=== PATIENT | male | born 1935 | race Caucasian/White ===

== ENCOUNTER 2016-05-26 01:30 | Inpatient (IN) | payer BC, OTHER ==
--- NOTE | 2016-05-26 01:38 | PDOC ---
History of Present Illness - General Chief Complaint: Respiratory Stated Complaint: SOB Time Seen by Provider: 05/26/16 01:36 History Source: Patient Exam Limitations: No Limitations - History of Present Illness Initial Comments: 05/26/16 01:36 This is a 80-year-old male who comes in complaining of shortness of breath. Patient sedated he has had shortness of breath 1 day. Patient has history significant for hypertension, high cholesterol, diabetes, patient said that it' s difficult for him to breathe secondary to congestion of his upper respiratory system. Patient complaining of cough. Patient denies any fevers or chills, nausea, vomiting, diarrhea. Patient denies any chest pain. PAST MEDICAL HISTORY: no significant history PAST SURGICAL HISTORY: no significant history FAMILY HISTORY: no pertinant history SOCIAL HISTORY: Pt lives with family and is employed. MEDICATIONS: reviewed ALLERGIES: As per nursing notes Review of Systems General: No fevers or chills, no weakness, no weight loss HEENT: No change in vision. No sore throat,. No ear pain CardioVascular: No chest pain or plus shortness of breath Respiratory:No cough, or wheezing. Gastrointestinal: no nausea, vomitting, diarrhea or constipation, No rectal bleeding Genitourinary: No dysuria, hematuria, or frequency Musculoskeletal: No joint or muscle pain or swelling Neurologic: No headache, vertigo, dizziness or loss of consciousness Psychiatric: nor depression Skin: No rashes or easy bruising Endocrine: no increased thirst or abnormal weight change Allergic: no skin or latex allergy All other systems reviewed and normal Exam: General: Well-nourished well-developed individual, no acute distress HEENT: Throat: Normal, tonsils normal, no erythema or exudate Neck: Supple, no meningeal signs, no lymphadenopathy Eyes::Pupils equal reactive and round, extraocular motion intact Chest: Nontender to palpation Cardiac: S1-S2 normal, regular rate and rhythm, no murmurs rubs or gallops Respiratory: Lungs clear to auscultation bilateral Abdomen: Soft, nondistended, normal bowel sounds, nontender to palpation diffusely Extremities: Warm, dry, no cyanosis, clubbing, or edema Skin: No rashes Neuro: Alert and oriented x3, nonfocal exam, grossly intact, normal gait Psych: Normal mood and affect 05/26/16 03:04 EKG shows normal sinus rhythm at a rate of 79, no acute ST-T wave changes Chest x-ray shows 05/26/16 03:04 Assessment and plan: This is a 80-year-old male who comes in complaining of shortness of breath. Patient's chest x-ray shows pulmonary vascular congestion and questionable multiple nodules. Probable pleural effusion. Patient given 40 mg of Lasix and will be admitted to an inpatient bed under the hospitalist service. Past History - Past Medical History Allergies/Adverse Reactions: Allergies Allergy/AdvReac Type Severity Reaction Status Date / Time No Known Drug Allergies Allergy Verified 05/26/16 01:32 Home Medications: Ambulatory Orders Hydralazine HCl 100 mg PO BID 11/19/13 Insulin (Levemir) [Levemir Flexpen -] 80 units SQ HS 11/19/13 Nifedipine [Nifedical Xl] 60 mg PO DAILY 11/19/13 Telmisartan [Micardis] 80 mg PO DAILY 11/19/13 Insulin Regular, Human [Humulin R -] 0 - 20 units SQ TID PRN 09/18/14 Glimepiride 4 mg PO BID 05/16/15 Glipizide/Metformin HCl [Glipizide-Metformin 2.5-250 mg] 1 each PO DAILY Labetalol HCl 300 mg PO BID 02/07/16 Levothyroxine [Synthroid -] 50 mcg PO DAILY 02/07/16 Terazosin HCl 2 mg PO BID 02/07/16 Multivitamins [Multivit ([facility] Formulary)] 1 tab PO DAILY #0 tab 02/15/16 Aspirin [ASA -] 81 mg PO DAILY 05/26/16 Anemia: No Asthma: No Cancer: No Cardiac Disorders: No CVA: No COPD: No CHF: No Dementia: No Diabetes: Yes (OVER 1O YRS) GI Disorders: No Disorders: Yes (BPH) HTN: Yes Hypercholesterolemia: Yes Liver Disease: No Seizures: No Thyroid Disease: Yes (HYPOTHYROIDISM) - Surgical History Abdominal Surgery: No Appendectomy: No Cardiac Surgery: No Cholecystectomy: No Lung Surgery: No Neurologic Surgery: No Orthopedic Surgery: Yes (BILATERAL TKR 8 AND 10 YEARS AGO) - Psycho/Social/Smoking Cessation Hx Anxiety: No Suicidal Ideation: No Smoking History: Never smoked Have you smoked in the past 12 months: No Hx Alcohol Use: Yes (OCCASIONALLY) Drug/Substance Use Hx: No Substance Use Type: Alcohol Hx Substance Use Treatment: No ED Treatment Course - LABORATORY CBC & Chemistry Diagram: 05/26/16 01:50 05/26/16 01:50 *DC/Admit/Observation/Transfer Diagnosis at time of Disposition: Congestive heart failure Qualifiers: Congestive heart failure type: unspecified congestive heart failure type Congestive heart failure chronicity: acute Qualified Code(s): I50.9 - Heart failure, unspecified - Discharge Dispostion Condition at time of disposition: Stable Admit: Yes
[2016-05-26 01:51] VITALS: BMI 31.7
[2016-05-26 02:09] LABS: BASOPHIL 0.5 % (0-2.0); EOSINOPHIL 4.3 % (0-4.5); MCH 27.6 pg (25.7-33.7); MCHC 33.1 g/dl (32.0-35.9); MEAN CELL VOLUME 83.3 fl (80-96); MEAN PLT VOLUME 9.1 fl (7.5-11.1); NEUTROPHILS 75.2 % (42.8-82.8); PLATELET COUNT 161 K/MM3 (134-434); RDW 16.7 % (11.9-15.9); WHITE BLOOD COUNT 7.6 K/mm3 (4.0-10.0)
[2016-05-26 02:11] LABS: URINE APPEARANCE CLEAR; URINE BILIRUBIN NEGATIVE (NEGATIVE); URINE BLOOD NEGATIVE (NEGATIVE); URINE COLOR LTYELLOW; URINE GLUCOSE (UA) NEGATIVE (NEGATIVE); URINE KETONE NEGATIVE (NEGATIVE); URINE LEUK ESTERASE NEGATIVE (NEGATIVE); URINE NITRITE NEGATIVE (NEGATIVE); URINE PROTEIN 3+ (NEGATIVE); URINE UROBILINOGEN NEGATIVE E.U./dl (0.2-1.0)
[2016-05-26 02:13] LABS: GRANULAR CASTS 2 /lpf; URINE MUCUS RARE; URINE RBC <1 /hpf (0-3); URINE WBC 1 /hpf (3-5)
[2016-05-26] MEDS ORDERED: FUROSEMIDE 40 MG/4 ML INJECTABLE VIAL ONE (02:23)
[2016-05-26] MEDS ORDERED: FUROSEMIDE 40 MG/4 ML INJECTABLE VIAL IVPUSH ONE (02:27)
[2016-05-26 02:37] LABS: ALBUMIN 3.9 g/dl (3.4-5.0); BILIRUBIN,TOTAL 0.5 mg/dL (0.2-1.0); CALCIUM 8.2 mg/dL (8.5-10.1); CREATININE 1.8 mg/dL (0.7-1.3); TOT PROT 6.9 g/dl (6.4-8.2)
[2016-05-26 02:51] LABS: TROPONIN I 0.03 ng/ml (0.00-0.05)
[2016-05-26] MEDS ORDERED: HEMOQUE TEST 1 EACH EACH ONE ×2 (03:12→03:32)
[2016-05-26] MEDS: INSULIN SLIDING SCALE (NOVOLOG) 1 VIAL SQ SCH ×4 (03:21→17:31)
[2016-05-26] MEDS: VALSARTAN 160 MG TABLET (UD) PO SCH ×2 (04:22→10:04)
[2016-05-26] MEDS: LEVOTHYROXINE NA 50 MCG TABLET (FP) PO SCH (06:26)
--- NOTE | 2016-05-26 07:36 | HP ---
CHIEF COMPLAINT: shortness of breath PCP: Dr Martinez HISTORY OF PRESENT ILLNESS: patient is a 80 y/o male with a past medical history of CRISTINA (no BIPAP), HTN, BPH, NIDDM, and diastolic congestive heart failure. Patient reports one day of shortness of breath and dyspnea upon exertion. He denies any chest pain or dizziness. Patient does reports an increase of swelling to bilateral lower extremities. ER course was notable for: (1) EKG, NSR, left axis deviation unchanged from prior EKG 11/10 (2)BNP 2795 (3)chest xray, billateral parenchymal disease left>right Recent Travel: none PAST MEDICAL HISTORY: see HPI PAST SURGICAL HISTORY: right hip replacement, bilateral inginual repair laparatomy Social History: retired resides at home with Smoking: denies Alcohol: social Drugs: none Family History: non-contributory Allergies No Known Drug Allergies Allergy (Verified 05/26/16 01:32) HOME MEDICATIONS: Home Medications Medication Instructions Recorded Hydralazine HCl 100 mg PO BID 11/19/13 Insulin (Levemir) [Levemir Flexpen 80 units SQ HS 11/19/13 -] Nifedipine [Nifedical Xl] 60 mg PO DAILY 11/19/13 Telmisartan [Micardis] 80 mg PO DAILY 11/19/13 Insulin Regular, Human [Humulin R 0 - 20 units SQ TID PRN 09/18/14 -] Glimepiride 4 mg PO BID 05/16/15 Glipizide/Metformin HCl 1 each PO DAILY 05/16/15 [Glipizide-Metformin 2.5-250 mg] Labetalol HCl 300 mg PO BID 02/07/16 Levothyroxine [Synthroid -] 50 mcg PO DAILY 02/07/16 Terazosin HCl 2 mg PO BID 02/07/16 Multivitamins [Multivit ([facility] 1 tab PO DAILY #0 tab 02/15/16 Formulary)] Aspirin [ASA -] 81 mg PO DAILY 05/26/16 REVIEW OF SYSTEMS CONSTITUTIONAL: Absent: fever, chills, diaphoresis, generalized weakness, malaise, loss of appetite, weight change HEENT: Absent: rhinorrhea, nasal congestion, throat pain, throat swelling, difficulty swallowing, mouth swelling, ear pain, eye pain, visual changes CARDIOVASCULAR: Absent: chest pain, syncope, palpitations, irregular heart rate, lightheadedness , peripheral edema RESPIRATORY: Present: shortness of breath, dyspnea upon exertion Absent: cough,, orthopnea, wheezing, stridor, hemoptysis GASTROINTESTINAL: Absent: abdominal pain, abdominal distension, nausea, vomiting, diarrhea, constipation, melena, hematochezia GENITOURINARY: Absent: dysuria, frequency, urgency, hesitancy, hematuria, flank pain, genital pain MUSCULOSKELETAL: Absent: myalgia, arthralgia, joint swelling, back pain, neck pain SKIN: Absent: rash, itching, pallor HEMATOLOGIC/IMMUNOLOGIC: Absent: easy bleeding, easy bruising, lymphadenopathy, frequent infections ENDOCRINE: Absent: unexplained weight gain, unexplained weight loss, heat intolerance, cold intolerance NEUROLOGIC: Absent: headache, focal weakness or paresthesias, dizziness, unsteady gait, seizure, mental status changes, bladder or bowel incontinence PSYCHIATRIC: Absent: anxiety, depression, suicidal or homicidal ideation, hallucinations. PHYSICAL EXAMINATION Vital Signs - 24 hr 05/26/16 05/26/16 04:44 06:25 Temperature 97.5 F L 98.0 F Pulse Rate 72 62 Respiratory 16 18 Rate Blood Pressure 182/71 189/72 O2 Sat by Pulse 96 Oximetry (%) GENERAL: Awake, alert, and fully oriented, in no acute distress. HEAD: Normal with no signs of trauma. EYES: Pupils equal, round and reactive to light, extraocular movements intact, sclera anicteric, conjunctiva clear. No lid lag. EARS, NOSE, THROAT: Ears normal, nares patent, oropharynx clear without exudates. Moist mucous membranes. NECK: Normal range of motion, supple without lymphadenopathy, JVD, or masses. LUNGS: Breath sounds equal, clear to apexes bilateraly, inspiratory wheeze noted to lower lobes, and no crackles. No accessory muscle use. HEART: Regular rate and rhythm, normal S1 and S2 without murmur, rub or gallop. ABDOMEN: Soft, nontender, not distended, normoactive bowel sounds, no guarding, no rebound, no masses. No hepatomegaly or splenomegaly. MUSCULOSKELETAL: Normal range of motion at all joints. No bony deformities or tenderness. No CVA tenderness. UPPER EXTREMITIES: 2+ pulses, warm, well-perfused. No cyanosis. No clubbing. Cap refill <2 seconds. No peripheral edema. LOWER EXTREMITIES: 2+ pulses, warm, well-perfused. No calf tenderness. +2 pitting edema noted bilaterally NEUROLOGICAL: Cranial nerves II-XII intact. Normal speech. Normal gait. PSYCHIATRIC: Cooperative. Good eye contact. Appropriate mood and affect. SKIN: Warm, dry, normal turgor, no rashes or lesions noted. Laboratory Results - last 24 hr 05/26/16 06:05 POC Glucometer 140 CBC WBC 7.5 K/mm3 (4.0-10.0) 05/26/16 07:45 RBC 3.75 M/mm3 (4.00-5.60) L 05/26/16 07:45 Hgb 10.3 GM/dl (11.7-16.9) L 05/26/16 07:45 Hct 31.2 % (35.4-49) L 05/26/16 07:45 MCV 83.2 fl (80-96) 05/26/16 07:45 MCHC 32.9 g/dl (32.0-35.9) 05/26/16 07:45 RDW 15.9 % (11.9-15.9) D 05/26/16 07:45 Plt Count 156 K/MM3 (134-434) 05/26/16 07:45 MPV 9.0 fl (7.5-11.1) 05/26/16 07:45 Neutrophils % 75.0 % (42.8-82.8) D 05/26/16 07:45 Lymphocytes % 14.3 % (8-40) D 05/26/16 07:45 Monocytes % 5.8 % (3.8-10.2) 05/26/16 07:45 Eosinophils % 4.5 % (0-4.5) 05/26/16 07:45 Basophils % 0.4 % (0-2.0) 05/26/16 07:45 CMP Sodium 141 mmol/L (136-145) 05/26/16 07:45 Potassium 3.8 mmol/L (3.5-5.1) 05/26/16 07:45 Chloride 107 mmol/L (98-107) 05/26/16 07:45 Carbon Dioxide 26 mmol/L (22-28) 05/26/16 07:45 Anion Gap 8 (8-16) 05/26/16 07:45 BUN 31 mg/dl (7-18) H 05/26/16 07:45 Creatinine 1.8 mg/dl (0.6-1.3) H D 05/26/16 07:45 Creat Clearance w eGFR 36.58 (>60) 05/26/16 07:45 POC Glucometer 140 UNITS (()) 05/26/16 06:05 Random Glucose 115 mg/dl (74-106) H D 05/26/16 07:45 Calcium 8.4 mg/dl (8.4-10.2) 05/26/16 07:45 Phosphorus 3.7 mg/dl (2.5-4.6) 05/26/16 07:45 Magnesium 2.1 mg/dL (1.8-2.4) 05/26/16 07:45 Total Bilirubin 0.2 mg/dl (0.2-1.0) 05/26/16 07:45 AST 21 U/L (10-42) D 05/26/16 07:45 ALT 25 U/L (10-40) D 05/26/16 07:45 Alkaline Phosphatase 50 U/L (32-92) 05/26/16 07:45 Creatine Kinase Cancelled 05/26/16 01:50 Creatine Kinase Index 1.3 % (0.0-5.0) 05/26/16 01:39 CK-MB (CK-2) 7.395 ng/ml (0.5-3.6) H 05/26/16 01:39 CK-MB (CK-2) Rel Index Cancelled 05/26/16 01:39 Troponin I 0.03 ng/ml (0.00-0.05) 05/26/16 07:25 B-Natriuretic Peptide 2795.13 pg/ml (5-450) H 05/26/16 01:50 Total Protein 5.6 g/dl (6.4-8.3) L 05/26/16 07:45 Albumin 3.7 g/dl (3.5-5.0) 05/26/16 07:45 ASSESSMENT/PLAN: 1) card acute on chronic diastolic congestive heart failure - elevated BNP 2795, unknown baseline, edema and wheezing noted on exam, lasix 40mg IVP ordered - pt's personal ophthalmic tech, Dr Pastrana contacted, copy of last echo received, EF 60-65%,mild TR, mild pulmonary hypertension - strict i/o and daily weight, continous cardiac monitoring - case discussed with Dr Pastrana, pt will be evaluated by cardiology today hypertension - continue hydralzine, labetolol, and nifedepine - strict b/p monitoring 2) pulm - pt denies any past tobaco use or occupational exposures, wheezing noted on exam, duonebs ordered PRN - chest xray noted, pleural disease noted, pending ct scan of chest - supplemental o2 keep spo2 above 92% 3) neph chronic kidney disease - creatine 1.8 baseline 1.6 - ultrasound of kidney/bladder (02/12) reviewed, small left renal cysts, bilateral sinus lipomatosis - close monitoring of creatine with diuresis 4) endo niddm -hold metformin, fingersticks achs with regular insulin sliding scale - pending tsh and t4 f/e/n -low sodium/diabetic diet - replete lytes prn ppx -heparin sq - zantac - oob - scd - pt dispo: requires inpatient telemetry Problem List - Problem (1) BPH (benign prostatic hyperplasia) Code(s): N40.0 - BENIGN PROSTATIC HYPERPLASIA WITHOUT LOWER URINRY TRACT SYMP (2) CKD (chronic kidney disease) Code(s): N18.9 - CHRONIC KIDNEY DISEASE, UNSPECIFIED Qualifiers: Chronic kidney disease stage: stage 1 Qualified Code(s): N18.1 - Chronic kidney disease, stage 1 (3) Diabetes Code(s): E11.9 - TYPE 2 DIABETES MELLITUS WITHOUT COMPLICATIONS Qualifiers: Diabetes mellitus type: type 2 (4) HTN (hypertension) Code(s): I10 - ESSENTIAL (PRIMARY) HYPERTENSION (5) Hypothyroid Code(s): E03.9 - HYPOTHYROIDISM, UNSPECIFIED Qualifiers: Hypothyroidism type: acquired Qualified Code(s): E03.9 - Hypothyroidism, unspecified (6) Diastolic congestive heart failure Code(s): I50.30 - UNSPECIFIED DIASTOLIC (CONGESTIVE) HEART FAILURE Qualifiers : Congestive heart failure chronicity: acute on chronic Qualified Code (s): I50.33 - Acute on chronic diastolic (congestive) heart failure Visit type - Emergency Visit Emergency Visit: Yes ED Registration Date: 05/26/16 Care time: The patient presented to the Emergency Department on the above date and was hospitalized for further evaluation of their emergent condition. - New Patient This patient is new to me today: Yes Date on this admission: 05/26/16 - Critical Care Critical Care patient: Yes Total Critical Care Time (in minutes): 45 Critical Care Statement: The care of this patient involved high complexity decision making to prevent further life threatening deterioration of the patient 's condition and/or to evalute & treat vital organ system(s) failure or risk of failure.
[2016-05-26 08:08] LABS: BASOPHIL 0.4 % (0-2.0); EOSINOPHIL 4.5 % (0-4.5); MCH 27.4 pg (25.7-33.7); MCHC 32.9 g/dl (32.0-35.9); MEAN CELL VOLUME 83.2 fl (80-96); PLATELET COUNT 156 K/MM3 (134-434); RDW 15.9 % (11.9-15.9); WHITE BLOOD COUNT 7.5 K/mm3 (4.0-10.0)
[2016-05-26] MEDS ORDERED: ALBUTEROL SO4 2.5/IPRATROPIUM 0.5 INH SOL 3 ML VIAL.NEB. NEB SCH (08:30)
[2016-05-26 08:34] LABS: ALBUMIN 3.7 g/dl (3.5-5.0); CALCIUM 8.4 mg/dl (8.4-10.2); CREATININE 1.8 mg/dl (0.6-1.3); MAGNESIUM 2.1 mg/dL (1.8-2.4); PHOSPHOROUS 3.7 mg/dl (2.5-4.6); TOT PROT 5.6 g/dl (6.4-8.3)
[2016-05-26] MEDS: ALBUTEROL SO4 2.5/IPRATROPIUM 0.5 INH SOL 3 ML VIAL.NEB. NEB PRN ×2 (08:43→15:22)
[2016-05-26 08:57] LABS: BILIRUBIN,TOTAL 0.2 mg/dl (0.2-1.0)
[2016-05-26] MEDS ORDERED: PT OWN MED DRAWER 7, Y5N ONE ×3 (09:50→21:05)
[2016-05-26] MEDS ORDERED: FUROSEMIDE 40 MG/4 ML INJECTABLE VIAL IVPUSH SCH (10:00)
[2016-05-26] MEDS: HEPARIN NA (PORCINE) 5,000 UNITS/ML 1ML VIAL SQ SCH ×2 (10:00→17:40)
[2016-05-26] MEDS ORDERED: TERAZOSIN HCL 2 MG CAPSULE PO SCH (10:00)
[2016-05-26] MEDS: NIFEdipine E.R 60 MG TABLET (UD) PO SCH (10:01)
[2016-05-26] MEDS: ASPIRIN 81 MG CHEWABLE TABLETS PO SCH (10:02)
[2016-05-26] MEDS: TERAZOSIN HCL 1 MG CAPSULE PO SCH ×2 (10:02→21:14)
[2016-05-26] MEDS: LABETALOL HCL 100 MG TABLET (FP) PO SCH ×2 (10:02→21:13)
[2016-05-26] MEDS: hydrALAZINE HCL 50 MG TABLET (FP) PO SCH ×2 (10:02→21:13)
[2016-05-26] MEDS: MULTIVITAMINS (DAILY MVI) TABLET (FP) PO SCH (10:04)
[2016-05-26] MEDS: RANITIDINE HCL 150 MG TABLET (FP) PO SCH (10:10)
--- NOTE | 2016-05-26 12:53 | EKG ---
Test Reason : Blood Pressure : / mmHG Vent. Rate : 079 BPM Atrial Rate : 079 BPM P-R Int : 162 ms QRS Dur : 080 ms QT Int : 398 ms P-R-T Axes : 078 -30 035 degrees QTc Int : 456 ms NORMAL SINUS RHYTHM LEFT AXIS DEVIATION NONSPECIFIC ST ABNORMALITY WHEN COMPARED WITH ECG OF 19-NOV-2013 09:13, QT HAS LENGTHENED Confirmed by MD CAYDEN, COBY ([id number]) on 05/26/2016 12:52:51 PM Referred By: MD LUCAS Confirmed By:COBY RODARTE MD
--- NOTE | 2016-05-26 12:53 | CONSULT ---
Consult Consult Specialty:: Nephrology Reason for Consultation:: CKD and fluid overload - History of Present Illness Chief Complaint: shortness of breath History of Present Illness: Pt is a 80 year old male with PMHx of CRISTINA, DM, CHF, BPH, HTN and CKD who presents to the ER with shortness of breath. The SOB began a few days ago and worsened yesterday. He denies chest pain or palpitations. He does complains of lower extremity edema. He has CKD and follows with Dr Mejia however he missed his last appointment as he had hip surgery. He is a poor historian and does not know his medications. He does know he is on diuretics but does not know the dose. He denies dysuria or hematuria. He denies nsaid use. He feels that the shortness of breath is worse when he lays flat. - History Source History Provided By: Patient, Medical Record - Past Medical History Cardio/Vascular: Yes: CHF, HTN, Hyperlipdemia Pulmonary: Yes: Sleep Apnea Renal/: Yes: Renal Inusuff, BPH Endocrine: Yes: Diabetes Mellitus, Hypothyroidism - Past Surgical History Additional Surgical History: knee surgery - Alcohol/Substance Use Hx Alcohol Use: Yes (OCCASIONALLY) - Smoking History Smoking history: Never smoked Have you smoked in the past 12 months: No Home Medications - Allergies Allergies/Adverse Reactions: Allergies Allergy/AdvReac Type Severity Reaction Status Date / Time No Known Drug Allergies Allergy Verified 05/26/16 01:32 - Home Medications Home Medications: Ambulatory Orders Hydralazine HCl 100 mg PO BID 11/19/13 Insulin (Levemir) [Levemir Flexpen -] 80 units SQ HS 11/19/13 Nifedipine [Nifedical Xl] 60 mg PO DAILY 11/19/13 Telmisartan [Micardis] 80 mg PO DAILY 11/19/13 Insulin Regular, Human [Humulin R -] 0 - 20 units SQ TID PRN 09/18/14 Glimepiride 4 mg PO BID 05/16/15 Glipizide/Metformin HCl [Glipizide-Metformin 2.5-250 mg] 1 each PO DAILY Labetalol HCl 300 mg PO BID 02/07/16 Levothyroxine [Synthroid -] 50 mcg PO DAILY 02/07/16 Terazosin HCl 2 mg PO BID 02/07/16 Multivitamins [Multivit ([facility] Formulary)] 1 tab PO DAILY #0 tab 02/15/16 Aspirin [ASA -] 81 mg PO DAILY 05/26/16 Family Disease History - Family Disease History Family History: Denies Review of Systems - Review of Systems Constitutional: reports: Malaise Eyes: reports: No Symptoms HENT: reports: No Symptoms Neck: reports: No Symptoms Cardiovascular: reports: Edema, Shortness of Breath. denies: Palpitations Respiratory: reports: SOB, SOB on Exertion Gastrointestinal: reports: No Symptoms Genitourinary: reports: No Symptoms Musculoskeletal: reports: No Symptoms Integumentary: reports: No Symptoms Neurological: reports: No Symptoms Endocrine: reports: No Symptoms Psychiatric: reports: No Symptoms Physical Exam Vital Signs: Vital Signs Temperature 98.0 F 05/26/16 09:13 Pulse Rate 74 05/26/16 09:13 Respiratory Rate 18 05/26/16 06:25 Blood Pressure 170/77 05/26/16 09:13 O2 Sat by Pulse Oximetry (%) 99 05/26/16 08:28 Constitutional: Yes: Calm Eyes: Yes: Conjunctiva Clear HENT: Yes: Atraumatic Neck: Yes: Supple Cardiovascular: Yes: S1, S2 Respiratory: Yes: Rhonchi Gastrointestinal: Yes: Soft, Abdomen, Obese Renal/: Yes: WNL Musculoskeletal: Yes: WNL Extremities: Yes: WNL Edema: Yes Edema: LLE: 2+, RLE: 2+ Neurological: Yes: Oriented Psychiatric: Yes: Oriented Labs: CBC, BMP 05/26/16 07:45 05/26/16 07:45 Laboratory Tests 11/19/13 11/20/13 11/21/13 10:00 08:00 08:00 WBC Hgb Sodium Potassium Chloride Carbon Dioxide Anion Gap BUN Creatinine 2.4 H 2.1 H 1.7 H Creat Clearance w eGFR Albumin TSH Urine Color Urine Appearance Urine pH Ur Specific [place] Urine Protein Urine Glucose (UA) Urine Ketones Urine Blood Urine Nitrite Urine Bilirubin Urine Urobilinogen Ur Leukocyte Esterase 07/04/15 01/23/16 02/14/16 06:45 10:25 07:00 WBC Hgb Sodium Potassium Chloride Carbon Dioxide Anion Gap BUN Creatinine 1.6 H 1.8 H 2.3 H D Creat Clearance w eGFR Albumin TSH Urine Color Urine Appearance Urine pH Ur Specific [place] Urine Protein Urine Glucose (UA) Urine Ketones Urine Blood Urine Nitrite Urine Bilirubin Urine Urobilinogen Ur Leukocyte Esterase 02/15/16 05/26/16 05/26/16 09:00 01:50 01:50 WBC Hgb 11.3 L Sodium Potassium Chloride Carbon Dioxide Anion Gap BUN Creatinine 2.4 H Creat Clearance w eGFR Albumin TSH Urine Color Ltyellow Urine Appearance Clear Urine pH 6.0 Ur Specific [place] 1.017 Urine Protein 3+ H D Urine Glucose (UA) Negative Urine Ketones Negative Urine Blood Negative Urine Nitrite Negative Urine Bilirubin Negative Urine Urobilinogen Negative Ur Leukocyte Esterase Negative 05/26/16 05/26/16 05/26/16 01:50 07:45 07:45 WBC 7.5 Hgb 10.3 L Sodium 141 Potassium 3.8 Chloride 107 Carbon Dioxide 26 Anion Gap 8 BUN 31 H Creatinine 1.8 H 1.8 H D Creat Clearance w eGFR 36.58 Albumin 3.7 TSH Urine Color Urine Appearance Urine pH Ur Specific [place] Urine Protein Urine Glucose (UA) Urine Ketones Urine Blood Urine Nitrite Urine Bilirubin Urine Urobilinogen Ur Leukocyte Esterase 05/26/16 07:45 WBC Hgb Sodium Potassium Chloride Carbon Dioxide Anion Gap BUN Creatinine Creat Clearance w eGFR Albumin TSH Pending Urine Color Urine Appearance Urine pH Ur Specific [place] Urine Protein Urine Glucose (UA) Urine Ketones Urine Blood Urine Nitrite Urine Bilirubin Urine Urobilinogen Ur Leukocyte Esterase Imaging - Results Chest X-ray: Report Reviewed Cat Scan: Report Reviewed (chf and pleural effusions) Problem List - Problems (1) CHF (congestive heart failure) Code(s): I50.9 - HEART FAILURE, UNSPECIFIED Qualifiers: Congestive heart failure type: unspecified congestive heart failure type Congestive heart failure chronicity: acute Qualified Code(s): I50.9 - Heart failure, unspecified (2) BPH (benign prostatic hyperplasia) Code(s): N40.0 - BENIGN PROSTATIC HYPERPLASIA WITHOUT LOWER URINRY TRACT SYMP (3) CKD (chronic kidney disease) Code(s): N18.9 - CHRONIC KIDNEY DISEASE, UNSPECIFIED (4) Diabetes Code(s): E11.9 - TYPE 2 DIABETES MELLITUS WITHOUT COMPLICATIONS (5) Dyslipidemia Code(s): E78.5 - HYPERLIPIDEMIA, UNSPECIFIED (6) HTN (hypertension) Code(s): I10 - ESSENTIAL (PRIMARY) HYPERTENSION (7) Hypothyroid Code(s): E03.9 - HYPOTHYROIDISM, UNSPECIFIED (8) Obesity Code(s): E66.9 - OBESITY, UNSPECIFIED (9) Pleural effusion Code(s): J90 - PLEURAL EFFUSION, NOT ELSEWHERE CLASSIFIED Assessment/Plan Current Medications Generic Name Dose Route Start Last Admin Trade Name Freq PRN Reason Stop Dose Admin Albuterol/Ipratropium 1 amp 05/26/16 08:29 05/26/16 08:43 Duoneb - NEB 05/27/16 02:31 1 amp Q6H PRN Administration SHORT OF BREATH/WHEEZING Aspirin 81 mg 05/26/16 10:00 05/26/16 10:02 Asa - PO 81 mg DAILY DORA Administration Furosemide 40 mg 05/26/16 10:00 05/26/16 10:03 Lasix Injection - IVPUSH 40 mg DAILY DORA Administration Heparin Sodium (Porcine) 5,000 unit 05/26/16 10:00 05/26/16 10:00 Heparin - SQ 5,000 unit Q8H-IV DORA Administration Hydralazine HCl 100 mg 05/26/16 10:00 05/26/16 10:02 Apresoline - PO 100 mg BID DORA Administration Insulin Aspart 1 vial 05/26/16 11:00 05/26/16 11:35 Novolog Vial Sliding Scale - SQ Not Given ACHS [facility] Protocol Labetalol HCl 300 mg 05/26/16 10:00 05/26/16 10:02 Normodyne - PO 300 mg BID DORA Administration Levothyroxine Sodium 50 mcg 05/26/16 07:00 05/26/16 06:26 Synthroid - PO 50 mcg AM DORA Administration Multivitamins/Minerals/Vitamin C 1 tab 05/26/16 10:00 05/26/16 10:04 Tab-A-Vit - PO 1 tab DAILY DORA Administration Nifedipine 60 mg 05/26/16 10:00 05/26/16 10:01 Procardia Xl - PO 60 mg DAILY DORA Administration Ranitidine HCl 150 mg 05/26/16 10:00 05/26/16 10:10 Zantac - PO 150 mg DAILY DORA Administration Terazosin HCl 2 mg 05/26/16 10:00 05/26/16 10:02 Hytrin - PO 2 mg BID DORA Administration Valsartan 320 mg 05/26/16 10:00 05/26/16 10:04 Diovan - PO Not Given DAILY DORA Impression 1. CKD 2. acute CHF 3. pleural effusion 4. HTN 5. DM 6. BPH 7. hypothyroidism Plan - renal function is stable compared to prior records - increase lasix to twice per day - will give small dose of potassium - called for outpt records - cont with diovan - check tsh level - get echo if not recent - monitor pulse ox - check protein to creatinine ratio - will follow Dr Mayo
[2016-05-26] MEDS ORDERED: POTASSIUM CHLORIDE TABS 10 MEQ TABLET.ER (FP) PO ONE (13:30)
[2016-05-26] MEDS: FUROSEMIDE 40 MG/4 ML INJECTABLE VIAL IVPUSH SCH (14:30)
--- NOTE | 2016-05-26 16:00 | CON.CARD ---
Cardiology Consult (text) - Consultation Consultation Note: CC: sob 80 y/o with h/o dCHF, HTN, HL, CRISTINA (no BIPAP), CRI (creat 1.7-1.8), BPH, NIDDM , p/w sob/chavez. states that because of frequent nocturia recently decided to decrease his home lasix dose form 80 mg alternating with 40 mg --> 40 mg daily. Since then progressive sob. Mild increase in LE edema. Denies weight gain. + nasal congestion, mild cough. No f/c/s, n/v/d, early satiety, headache. chronically sleeps upright in armchair. He states this is secondary to hip discomfort. No cp, palps, dizziness, bleeding, claudication, transient neurologic symptoms. PAST MEDICAL HISTORY: see HPI PAST SURGICAL HISTORY: right hip replacement, bilateral inginual repair laparatomy Social History: retired resides at home with Smoking: never smoker Alcohol: social Drugs: none Family History: no FH of premature CAD ros: per hpi. Additionally no rashes or visual disturbances Ambulatory Orders Hydralazine HCl 100 mg PO BID 11/19/13 Insulin (Levemir) [Levemir Flexpen -] 80 units SQ HS 11/19/13 Nifedipine [Nifedical Xl] 60 mg PO DAILY 11/19/13 Telmisartan [Micardis] 80 mg PO DAILY 11/19/13 Insulin Regular, Human [Humulin R -] 0 - 20 units SQ TID PRN 09/18/14 Glimepiride 4 mg PO BID 05/16/15 Glipizide/Metformin HCl [Glipizide-Metformin 2.5-250 mg] 1 each PO DAILY Labetalol HCl 300 mg PO BID 02/07/16 Levothyroxine [Synthroid -] 50 mcg PO DAILY 02/07/16 Terazosin HCl 2 mg PO BID 02/07/16 Multivitamins [Multivit ([facility] Formulary)] 1 tab PO DAILY #0 tab 02/15/16 Aspirin [ASA -] 81 mg PO DAILY 05/26/16 Current Medications Albuterol/Ipratropium (Duoneb -) 1 amp NEB Q6H PRN PRN Reason: SHORT OF BREATH/WHEEZING Stop: 05/27/16 02:31 Last Admin: 05/26/16 15:22 Dose: 1 amp Aspirin (Asa -) 81 mg PO DAILY [facility] Last Admin: 05/26/16 10:02 Dose: 81 mg Furosemide (Lasix Injection -) 40 mg IVPUSH BID@0600,1400 [facility] Last Admin: 05/26/16 14:30 Dose: 40 mg Heparin Sodium (Porcine) (Heparin -) 5,000 unit SQ Q8H-IV [facility] Last Admin: 05/26/16 10:00 Dose: 5,000 unit Hydralazine HCl (Apresoline -) 100 mg PO BID [facility] Last Admin: 05/26/16 10:02 Dose: 100 mg Insulin Aspart (Novolog Vial Sliding Scale -) 1 vial SQ ACHS [facility] PRN Reason: Protocol Last Admin: 05/26/16 11:35 Dose: Not Given Labetalol HCl (Normodyne -) 300 mg PO BID [facility] Last Admin: 05/26/16 10:02 Dose: 300 mg Levothyroxine Sodium (Synthroid -) 50 mcg PO AM [facility] Last Admin: 05/26/16 06:26 Dose: 50 mcg Multivitamins/Minerals/Vitamin C (Tab-A-Vit -) 1 tab PO DAILY [facility] Last Admin: 05/26/16 10:04 Dose: 1 tab Nifedipine (Procardia Xl -) 60 mg PO DAILY [facility] Last Admin: 05/26/16 10:01 Dose: 60 mg Ranitidine HCl (Zantac -) 150 mg PO DAILY [facility] Last Admin: 05/26/16 10:10 Dose: 150 mg Terazosin HCl (Hytrin -) 2 mg PO BID [facility] Last Admin: 05/26/16 10:02 Dose: 2 mg Valsartan (Diovan -) 320 mg PO DAILY [facility] Last Admin: 05/26/16 10:04 Dose: Not Given Vital Signs - 24 hr 05/26/16 05/26/16 05/26/16 01:43 01:45 01:52 Temperature 97.9 F Pulse Rate 80 79 80 Pulse Rate [ Left] Respiratory 20 Rate Blood Pressure 219/108 Blood Pressure [Left] O2 Sat by Pulse 88 L 99 100 Oximetry (%) 05/26/16 05/26/16 05/26/16 01:54 02:16 02:54 Temperature Pulse Rate 80 Pulse Rate [ 78 73 Left] Respiratory 20 24 Rate Blood Pressure Blood Pressure 179/80 [Left] O2 Sat by Pulse 100 99 Oximetry (%) 05/26/16 05/26/16 05/26/16 03:24 04:44 06:25 Temperature 97.5 F L 98.0 F Pulse Rate 72 62 Pulse Rate [ 70 Left] Respiratory 22 16 18 Rate Blood Pressure 182/71 189/72 Blood Pressure 179/77 [Left] O2 Sat by Pulse 97 96 Oximetry (%) 05/26/16 05/26/16 05/26/16 08:28 09:13 14:54 Temperature 98.0 F Pulse Rate 74 70 Pulse Rate [ Left] Respiratory 20 Rate Blood Pressure 170/77 127/62 Blood Pressure [Left] O2 Sat by Pulse 99 93 L Oximetry (%) Intake & Output 05/24/16 05/25/16 05/26/16 05/27/16 07:59 07:59 07:59 07:59 Output Total 800 650 Balance -800 -650 Weight 220 lb Nad, calm, conversational dyspnea jvd elevated, neck supple bibasilar dullness and crackles, nl effort rrr nl s1, s2 no m/r/g + bs soft nt nd obese ext without e/c/c + dp/pt aaox3 no jaundice, diaphoresis. CBC, BMP 05/26/16 07:45 05/26/16 07:45 Laboratory Tests 07/04/15 05/26/16 05/26/16 06:45 01:39 01:50 Magnesium Total Bilirubin AST ALT Alkaline Phosphatase Creatine Kinase 556 H D Creatine Kinase Index 1.3 CK-MB (CK-2) 7.395 H Troponin I 0.03 D B-Natriuretic Peptide 805.23 H Albumin 3.9 D TSH 05/26/16 05/26/16 05/26/16 01:50 07:25 07:45 Magnesium 2.1 Total Bilirubin 0.2 AST 21 D ALT 25 D Alkaline Phosphatase 50 Creatine Kinase Creatine Kinase Index CK-MB (CK-2) Troponin I 0.03 B-Natriuretic Peptide 2795.13 H Albumin 3.7 TSH 05/26/16 07:45 Magnesium Total Bilirubin AST ALT Alkaline Phosphatase Creatine Kinase Creatine Kinase Index CK-MB (CK-2) Troponin I B-Natriuretic Peptide Albumin TSH Pending EKG: NSR, LAD. no ischemic changes tele: SR. one 16 beat run of SVT (likely atach) Chest CT: pulmonary vascular congestion. Moderate B effusion with assoc atelectasis. Prominent mediastinal l. nodes. renal u/s: mild cortical atrophy Echo 04/2016 [facility]: tds. mild lv dilation. EF 45-50% (global). pseudonormalization. nl rv. 1+ MAC. Mild-mod MR, 1+ TR. rvsp 41. mild ao dilation Echo 03/2016: Mild LVH, Mild LV dilation. Nl EF. Pseudonormalization with increased e/e'. Nl rv size/fn. Mild samm. RVSP at least 43. mild ao dilation 4.1 cm. laminar arch atheroma. MPI 06/12 (romain): no STs, no isch, nl EF (LV dilation, no TID) 80 y/o with h/o dCHF, HTN, HL, CRISTINA (no BIPAP), CRI (creat 1.7-1.8), BPH, NIDDM, p/w sob/chavez. acute diastolic heart failure exacerbation - likely in setting of non-adherence to diuretic regimen (pt decreased dose). Also with significant htn on presentation 219/108. Repeat echo here with slightly depressed function (unclear if in setting of volume overload or if b/c it was technically difficult study and EF underestimated) - agree with ongoing diuresis with lasix 40 mg IV bid. Daily weights, bmp, i/o' s. - O2 monitoring HTN: - improving control on current regimen. con't to monitor. CRISTINA (with severe desats to 60s%)--says intolerant of all masks, failed ENT surgery many yrs ago CKD - cr at baseline. monitor with diuresis.
[2016-05-26 16:49] LABS: THYROXINE (T4) 9.5 ug/dl (4.5-12.1)
[2016-05-26 16:56] LABS: THYROID STIMULATING HORMONE 4.64 uIU/ml (0.358-3.74)
[2016-05-27] MEDS: HEPARIN NA (PORCINE) 5,000 UNITS/ML 1ML VIAL SQ SCH ×3 (02:21→17:53)
[2016-05-27] MEDS: FUROSEMIDE 40 MG/4 ML INJECTABLE VIAL IVPUSH SCH ×2 (06:05→13:03)
[2016-05-27] MEDS: LEVOTHYROXINE NA 50 MCG TABLET (FP) PO SCH (06:06)
[2016-05-27 08:08] LABS: BASOPHIL 0.5 % (0-2.0); EOSINOPHIL 7.3 % (0-4.5); MCH 27.4 pg (25.7-33.7); MCHC 33.1 g/dl (32.0-35.9); MEAN CELL VOLUME 82.7 fl (80-96); MEAN PLT VOLUME 9.2 fl (7.5-11.1); NEUTROPHILS 66.2 % (42.8-82.8); PLATELET COUNT 144 K/MM3 (134-434); RDW 16.1 % (11.9-15.9); WHITE BLOOD COUNT 6.4 K/mm3 (4.0-10.0)
[2016-05-27 08:22] LABS: CALCIUM 8.4 mg/dl (8.4-10.2); CREATININE 1.9 mg/dl (0.6-1.3); MAGNESIUM 2.2 mg/dL (1.8-2.4)
[2016-05-27] MEDS ORDERED: PT OWN MED DRAWER 7, Y5N ONE ×2 (09:18→20:51)
[2016-05-27] MEDS: NIFEdipine E.R 60 MG TABLET (UD) PO SCH (09:37)
[2016-05-27] MEDS: ASPIRIN 81 MG CHEWABLE TABLETS PO SCH (09:37)
[2016-05-27] MEDS: LABETALOL HCL 100 MG TABLET (FP) PO SCH ×2 (09:37→21:27)
[2016-05-27] MEDS: MULTIVITAMINS (DAILY MVI) TABLET (FP) PO SCH (09:37)
[2016-05-27] MEDS: POTASSIUM CHLORIDE TABS 10 MEQ TABLET.ER (FP) PO SCH (09:38)
[2016-05-27] MEDS: RANITIDINE HCL 150 MG TABLET (FP) PO SCH (09:38)
[2016-05-27] MEDS: VALSARTAN 160 MG TABLET (UD) PO SCH (09:38)
[2016-05-27] MEDS: hydrALAZINE HCL 50 MG TABLET (FP) PO SCH ×2 (09:39→21:28)
[2016-05-27] MEDS: TERAZOSIN HCL 1 MG CAPSULE PO SCH ×2 (10:54→21:26)
[2016-05-27] MEDS: INSULIN SLIDING SCALE (NOVOLOG) 1 VIAL SQ SCH ×5 (11:09→22:00)
--- NOTE | 2016-05-27 11:19 | PN ---
Physical Exam: SUBJECTIVE: Patient seen and examined, reports feeling breathing is better, still reports dypnea upon exertion, denies any chest pain. OBJECTIVE: patient is a 80 y/o male with a past medical history of CRISTINA (no BIPAP ), HTN, BPH, NIDDM, and diastolic congestive heart failure. Patient was admitted from the emergency department for diastolic congestive heart failure . Vital Signs Period Temp Pulse Resp BP Sys/Eisenberg Pulse Ox Last 24 Hr 98 F-98.3 F 69-80 18-20 127-155/60-69 93-98 Intake & Output 05/24/16 05/25/16 05/26/16 05/27/16 23:59 23:59 23:59 23:59 Intake Total 400 Output Total 2750 1300 Balance -2750 -900 Weight 99.79 kg 96.176 kg GENERAL: The patient is awake, alert, and fully oriented, in no acute distress. HEAD: Normal with no signs of trauma. EYES: PERRL, extraocular movements intact, sclera anicteric, conjunctiva clear. No ptosis. ENT: Ears normal, nares patent, oropharynx clear without exudates, moist mucous membranes. NECK: Trachea midline, full range of motion, supple. LUNGS: Breath sounds equal, clear to auscultation bilaterally to apexes, crackles noted billateraly to bases, no wheezes, no accessory muscle use. HEART: Regular rate and rhythm, S1, S2 without murmur, rub or gallop. ABDOMEN: Soft, nontender, nondistended, normoactive bowel sounds, no guarding, no rebound, no hepatosplenomegaly, no masses. EXTREMITIES: 2+ pulses, warm, well-perfused, no edema. NEUROLOGICAL: Cranial nerves II through XII grossly intact. Normal speech, gait not observed. PSYCH: Normal mood, normal affect. SKIN: Warm, dry, normal turgor, no rashes or lesions noted Laboratory Results - last 24 hr 05/26/16 05/26/16 05/26/16 07:45 07:45 11:28 WBC RBC Hgb Hct MCV MCHC RDW Plt Count MPV Neutrophils % Lymphocytes % Monocytes % Eosinophils % Basophils % D-Dimer Sodium Potassium Chloride Carbon Dioxide Anion Gap BUN Creatinine POC Glucometer 107 Random Glucose Hemoglobin A1c % 7.0 H D Calcium Magnesium Troponin I TSH 4.64 H 05/26/16 05/26/1605/26/17 14:05 14:05 17:26 WBC RBC Hgb Hct MCV MCHC RDW Plt Count MPV Neutrophils % Lymphocytes % Monocytes % Eosinophils % Basophils % D-Dimer Cancelled Sodium Potassium Chloride Carbon Dioxide Anion Gap BUN Creatinine POC Glucometer 224 Random Glucose Hemoglobin A1c % Calcium Magnesium Troponin I Cancelled TSH 05/26/16 05/26/16 05/26/16 21:49 22:00 22:00 WBC RBC Hgb Hct MCV MCHC RDW Plt Count MPV Neutrophils % Lymphocytes % Monocytes % Eosinophils % Basophils % D-Dimer 870 H Sodium Potassium Chloride Carbon Dioxide Anion Gap BUN Creatinine POC Glucometer 120 Random Glucose Hemoglobin A1c % Calcium Magnesium Troponin I 0.03 TSH 05/27/16 05/27/16 05/27/16 06:03 07:00 07:00 WBC 6.4 RBC 3.72 L Hgb 10.2 L Hct 30.7 L MCV 82.7 MCHC 33.1 RDW 16.1 H Plt Count 144 MPV 9.2 Neutrophils % 66.2 Lymphocytes % 18.7 D Monocytes % 7.3 Eosinophils % 7.3 H Basophils % 0.5 D-Dimer Sodium 141 Potassium 3.6 Chloride 104 Carbon Dioxide 29 H Anion Gap 8 BUN 30 H Creatinine 1.9 H POC Glucometer 126 Random Glucose 154 H D Hemoglobin A1c % Calcium 8.4 Magnesium 2.2 Troponin I TSH Active Medications Generic Name Dose Route Start Last Admin Trade Name Freq PRN Reason Stop Dose Admin Aspirin 81 mg 05/26/16 10:00 05/27/16 09:37 Asa - PO 81 mg DAILY [facility] Administration Furosemide 40 mg 05/26/16 14:00 05/27/16 06:05 Lasix Injection - IVPUSH 40 mg BID@0600,1400 [facility] Administration Heparin Sodium (Porcine) 5,000 unit 05/26/16 10:00 05/27/16 09:42 Heparin - SQ 5,000 unit Q8H-IV [facility] Administration Hydralazine HCl 100 mg 05/26/16 10:00 05/27/16 09:39 Apresoline - PO 100 mg BID [facility] Administration Insulin Aspart 1 vial 05/26/16 11:00 05/27/16 11:10 Novolog Vial Sliding Scale - SQ Not Given ACHS [facility] Protocol Labetalol HCl 300 mg 05/26/16 10:00 05/27/16 09:37 Normodyne - PO 300 mg BID [facility] Administration Levothyroxine Sodium 50 mcg 05/26/16 07:00 05/27/16 06:06 Synthroid - PO 50 mcg AM [facility] Administration Multivitamins/Minerals/Vitamin C 1 tab 05/26/16 10:00 05/27/16 09:37 Tab-A-Vit - PO 1 tab DAILY [facility] Administration Nifedipine 60 mg 05/26/16 10:00 05/27/16 09:37 Procardia Xl - PO 60 mg DAILY [facility] Administration Potassium Chloride 20 meq 05/27/16 10:00 05/27/16 09:38 K-Dur - PO 20 meq DAILY [facility] Administration Ranitidine HCl 150 mg 05/26/16 10:00 05/27/16 09:38 Zantac - PO 150 mg DAILY [facility] Administration Terazosin HCl 2 mg 05/26/16 10:00 05/27/16 10:54 Hytrin - PO 2 mg BID [facility] Administration Valsartan 320 mg 05/26/16 10:00 05/27/16 09:38 Diovan - PO 320 mg DAILY [facility] Administration IMAGING chest xray (05/26) bilateral pleural disease ASSESSMENT/PLAN: 1) card acute on chronic diastolic congestive heart failure - 3kg weight loss noted, continue lasix 40mg bid - ECHO (05/26/16): EF 45-50%, grade II diastolic dysfunction--> ef decreased from prior ECHO 04/15. - strict i/o and daily weight, continous cardiac monitoring - cardiology ([employer]) consulted and followed hypertension - continue hydralzine, labetolol, and nifedepine - strict b/p monitoring 2) pulm - ct scan of chest, moderate bilateral pleural effusions, CHF - continue duonebs prn - incentive spiromter - supplemental o2 keep spo2 above 92% 3) neph chronic kidney disease - creatine 1.9 baseline 1.6 - ultrasound of kidney/bladder (05/26/16) mild cortical atrophy, no post void residual, unchanged from prior ultrasound from 02/12 - close monitoring of creatine with diuresis - nephrology (Dr Nance) consulted and following 4) endo niddm -hold metformin, fingersticks achs with regular insulin sliding scale -hemoglobin a1c 7.0 f/e/n -low sodium/diabetic diet - replete lytes prn ppx -heparin sq - zantac - oob - scd - pt dispo: requires inpatient telemetry FULL CODE Problem List - Problems (1) BPH (benign prostatic hyperplasia) Code(s): N40.0 - BENIGN PROSTATIC HYPERPLASIA WITHOUT LOWER URINRY TRACT SYMP (2) CKD (chronic kidney disease) Code(s): N18.9 - CHRONIC KIDNEY DISEASE, UNSPECIFIED Qualifiers: Chronic kidney disease stage: stage 1 Qualified Code(s): N18.1 - Chronic kidney disease, stage 1 (3) Diabetes Code(s): E11.9 - TYPE 2 DIABETES MELLITUS WITHOUT COMPLICATIONS Qualifiers: Diabetes mellitus type: type 2 (4) HTN (hypertension) Code(s): I10 - ESSENTIAL (PRIMARY) HYPERTENSION (5) Hypothyroid Code(s): E03.9 - HYPOTHYROIDISM, UNSPECIFIED Qualifiers: Hypothyroidism type: acquired Qualified Code(s): E03.9 - Hypothyroidism, unspecified (6) Diastolic congestive heart failure Code(s): I50.30 - UNSPECIFIED DIASTOLIC (CONGESTIVE) HEART FAILURE Qualifiers : Congestive heart failure chronicity: acute on chronic Qualified Code (s): I50.33 - Acute on chronic diastolic (congestive) heart failure Visit type - Emergency Visit Emergency Visit: Yes ED Registration Date: 05/26/16 Care time: The patient presented to the Emergency Department on the above date and was hospitalized for further evaluation of their emergent condition. - New Patient This patient is new to me today: No - Critical Care Critical Care patient: No - Discharge Referral Referred to [facility] Med P.C.: No
[2016-05-27] MEDS ORDERED: INSULIN (NOVOLOG) ASPART 100 UNITS/ML 10ML VIAL ONE (11:28)
--- NOTE | 2016-05-27 14:45 | PN ---
Progress Note, Physician History of Present Illness: Pt seen and examined at bedside. He feels that his breathing is improved. He still complains of swelling in the legs. - Current Medication List Current Medications: Active Medications Aspirin (Asa -) 81 mg PO DAILY [facility] Last Admin: 05/27/16 09:37 Dose: 81 mg Furosemide (Lasix Injection -) 40 mg IVPUSH BID@0600,1400 [facility] Last Admin: 05/27/16 13:03 Dose: 40 mg Heparin Sodium (Porcine) (Heparin -) 5,000 unit SQ Q8H-IV [facility] Last Admin: 05/27/16 09:42 Dose: 5,000 unit Hydralazine HCl (Apresoline -) 100 mg PO BID [facility] Last Admin: 05/27/16 09:39 Dose: 100 mg Insulin Aspart (Novolog Vial Sliding Scale -) 1 vial SQ ACHS [facility] PRN Reason: Protocol Last Admin: 05/27/16 11:34 Dose: 2 units Labetalol HCl (Normodyne -) 300 mg PO BID [facility] Last Admin: 05/27/16 09:37 Dose: 300 mg Levothyroxine Sodium (Synthroid -) 50 mcg PO AM [facility] Last Admin: 05/27/16 06:06 Dose: 50 mcg Multivitamins/Minerals/Vitamin C (Tab-A-Vit -) 1 tab PO DAILY [facility] Last Admin: 05/27/16 09:37 Dose: 1 tab Nifedipine (Procardia Xl -) 60 mg PO DAILY [facility] Last Admin: 05/27/16 09:37 Dose: 60 mg Potassium Chloride (K-Dur -) 20 meq PO DAILY [facility] Last Admin: 05/27/16 09:38 Dose: 20 meq Ranitidine HCl (Zantac -) 150 mg PO DAILY [facility] Last Admin: 05/27/16 09:38 Dose: 150 mg Terazosin HCl (Hytrin -) 2 mg PO BID [facility] Last Admin: 05/27/16 10:54 Dose: 2 mg Valsartan (Diovan -) 320 mg PO DAILY [facility] Last Admin: 05/27/16 09:38 Dose: 320 mg - Objective Vital Signs: Vital Signs Temperature 97.7 F 05/27/16 14:20 Pulse Rate 67 05/27/16 14:20 Respiratory Rate 20 05/27/16 14:20 Blood Pressure 123/52 05/27/16 14:20 O2 Sat by Pulse Oximetry (%) 94 L 05/27/16 14:20 Constitutional: Yes: Calm Eyes: Yes: Conjunctiva Clear HENT: Yes: Atraumatic Neck: Yes: Supple Cardiovascular: Yes: S1, S2 Respiratory: Yes: CTA Bilaterally, On Nasal O2 Gastrointestinal: Yes: Soft Genitourinary: Yes: WNL Extremities: Yes: WNL Edema: Yes Edema: LLE: 1+, RLE: 1+ Neurological: Yes: Oriented Psychiatric: Yes: Oriented Labs: CBC, BMP 05/27/16 07:00 05/27/16 07:00 - ....Imaging Chest X-ray: Report Reviewed Problem List - Problems (1) CHF (congestive heart failure) Code(s): I50.9 - HEART FAILURE, UNSPECIFIED Qualifiers: Congestive heart failure type: unspecified congestive heart failure type Congestive heart failure chronicity: acute Qualified Code(s): I50.9 - Heart failure, unspecified (2) BPH (benign prostatic hyperplasia) Code(s): N40.0 - BENIGN PROSTATIC HYPERPLASIA WITHOUT LOWER URINRY TRACT SYMP (3) CKD (chronic kidney disease) Code(s): N18.9 - CHRONIC KIDNEY DISEASE, UNSPECIFIED Qualifiers: Chronic kidney disease stage: stage 1 Qualified Code(s): N18.1 - Chronic kidney disease, stage 1 (4) Diabetes Code(s): E11.9 - TYPE 2 DIABETES MELLITUS WITHOUT COMPLICATIONS Qualifiers: Diabetes mellitus type: type 2 (5) Dyslipidemia Code(s): E78.5 - HYPERLIPIDEMIA, UNSPECIFIED (6) HTN (hypertension) Code(s): I10 - ESSENTIAL (PRIMARY) HYPERTENSION (7) Hypothyroid Code(s): E03.9 - HYPOTHYROIDISM, UNSPECIFIED Qualifiers: Hypothyroidism type: acquired Qualified Code(s): E03.9 - Hypothyroidism, unspecified (8) Obesity Code(s): E66.9 - OBESITY, UNSPECIFIED (9) Pleural effusion Code(s): J90 - PLEURAL EFFUSION, NOT ELSEWHERE CLASSIFIED Assessment/Plan Current Medications Generic Name Dose Route Start Last Admin Trade Name Freq PRN Reason Stop Dose Admin Aspirin 81 mg 05/26/16 10:00 05/27/16 09:37 Asa - PO 81 mg DAILY [facility] Administration Furosemide 40 mg 05/26/16 14:00 05/27/16 13:03 Lasix Injection - IVPUSH 40 mg BID@0600,1400 [facility] Administration Heparin Sodium (Porcine) 5,000 unit 05/26/16 10:00 05/27/16 09:42 Heparin - SQ 5,000 unit Q8H-IV [facility] Administration Hydralazine HCl 100 mg 05/26/16 10:00 05/27/16 09:39 Apresoline - PO 100 mg BID [facility] Administration Insulin Aspart 1 vial 05/26/16 11:00 05/27/16 11:34 Novolog Vial Sliding Scale - SQ 2 units ACHS [facility] Administration Protocol Labetalol HCl 300 mg 05/26/16 10:00 05/27/16 09:37 Normodyne - PO 300 mg BID [facility] Administration Levothyroxine Sodium 50 mcg 05/26/16 07:00 05/27/16 06:06 Synthroid - PO 50 mcg AM [facility] Administration Multivitamins/Minerals/Vitamin C 1 tab 05/26/16 10:00 05/27/16 09:37 Tab-A-Vit - PO 1 tab DAILY [facility] Administration Nifedipine 60 mg 05/26/16 10:00 05/27/16 09:37 Procardia Xl - PO 60 mg DAILY [facility] Administration Potassium Chloride 20 meq 05/27/16 10:00 05/27/16 09:38 K-Dur - PO 20 meq DAILY [facility] Administration Ranitidine HCl 150 mg 05/26/16 10:00 05/27/16 09:38 Zantac - PO 150 mg DAILY [facility] Administration Terazosin HCl 2 mg 05/26/16 10:00 05/27/16 10:54 Hytrin - PO 2 mg BID [facility] Administration Valsartan 320 mg 05/26/16 10:00 05/27/16 09:38 Diovan - PO 320 mg DAILY [facility] Administration Laboratory Tests 05/26/16 07:45 TSH 4.64 H Impression 1. CKD 2. acute CHF diastolic 3. pleural effusion 4. HTN 5. DM 6. BPH 7. hypothyroidism Plan - cont current lasix dose, will also give a PO dose of potassium - monitor labs daily - echo reviewed, diastolic dysfunction and decrease EF - renal function is stable - cxr reviewed and there is improvement in congestion - will need proteinuria workup, can be done as outpt - cont with diovan - monitor pulse ox - check protein to creatinine ratio - will follow Dr Mayo
[2016-05-27] MEDS ORDERED: POTASSIUM CHLORIDE TABS 20 MEQ TABLET.ER (FP) PO ONE (15:30)
[2016-05-28] MEDS: HEPARIN NA (PORCINE) 5,000 UNITS/ML 1ML VIAL SQ SCH ×3 (01:10→18:05)
[2016-05-28] MEDS: FUROSEMIDE 40 MG/4 ML INJECTABLE VIAL IVPUSH SCH ×2 (06:29→13:24)
[2016-05-28] MEDS: LEVOTHYROXINE NA 50 MCG TABLET (FP) PO SCH (06:30)
[2016-05-28] MEDS: INSULIN SLIDING SCALE (NOVOLOG) 1 VIAL SQ SCH ×4 (06:30→21:19)
[2016-05-28 08:56] LABS: BASOPHIL 0.6 % (0-2.0); EOSINOPHIL 10.1 % (0-4.5); MCH 27.2 pg (25.7-33.7); MCHC 32.3 g/dl (32.0-35.9); MEAN CELL VOLUME 84.3 fl (80-96); MEAN PLT VOLUME 9.3 fl (7.5-11.1); NEUTROPHILS 64.7 % (42.8-82.8); PLATELET COUNT 152 K/MM3 (134-434); WHITE BLOOD COUNT 5.9 K/mm3 (4.0-10.0)
[2016-05-28 09:16] LABS: BILIRUBIN,TOTAL 0.5 mg/dl (0.2-1.0); CALCIUM 8.7 mg/dl (8.4-10.2); CREATININE 1.8 mg/dl (0.6-1.3); MAGNESIUM 2.2 mg/dL (1.8-2.4); PHOSPHOROUS 3.5 mg/dl (2.5-4.6); TOT PROT 6.3 g/dl (6.4-8.3)
[2016-05-28] MEDS ORDERED: PT OWN MED DRAWER 7, Y5N ONE ×2 (09:40→21:05)
[2016-05-28] MEDS: ASPIRIN 81 MG CHEWABLE TABLETS PO SCH (09:46)
[2016-05-28] MEDS: VALSARTAN 160 MG TABLET (UD) PO SCH (09:47)
[2016-05-28] MEDS: RANITIDINE HCL 150 MG TABLET (FP) PO SCH (09:47)
[2016-05-28] MEDS: TERAZOSIN HCL 1 MG CAPSULE PO SCH ×2 (09:47→21:10)
[2016-05-28] MEDS: MULTIVITAMINS (DAILY MVI) TABLET (FP) PO SCH (09:47)
[2016-05-28] MEDS: NIFEdipine E.R 60 MG TABLET (UD) PO SCH (09:47)
[2016-05-28] MEDS: LABETALOL HCL 100 MG TABLET (FP) PO SCH ×2 (09:47→21:13)
[2016-05-28] MEDS: hydrALAZINE HCL 50 MG TABLET (FP) PO SCH ×2 (09:50→21:10)
[2016-05-28] MEDS: POTASSIUM CHLORIDE TABS 10 MEQ TABLET.ER (FP) PO SCH (09:50)
--- NOTE | 2016-05-28 10:25 | PN ---
[id number] OBJECTIVE: patient is a 80 y/o male with a past medical history of CRISTINA (no BIPAP ), HTN, BPH, NIDDM, and diastolic congestive heart failure. Patient was admitted from the emergency department for diastolic congestive heart failure Vital Signs Period Temp Pulse Resp BP Sys/Eisenberg Pulse Ox Last 24 Hr 97.7 F-99.3 F 67-82 18-20 123-173/52-80 90-98 Intake & Output 05/25/16 05/26/16 05/27/16 05/28/16 23:59 23:59 23:59 23:59 Intake Total 775 998 Output Total 9856 2260 1725 Balance -7830 -1875 -727 Weight 99.79 kg 96.176 kg 94.367 kg GENERAL: The patient is awake, alert, and fully oriented, in no acute distress. HEAD: Normal with no signs of trauma. EYES: PERRL, extraocular movements intact, sclera anicteric, conjunctiva clear. No ptosis. ENT: Ears normal, nares patent, oropharynx clear without exudates, moist mucous membranes. NECK: Trachea midline, full range of motion, supple. LUNGS: Breath sounds equal, clear to auscultation bilaterally to apexes, inspiratory wheeze noted to bilateral bases with crackles, no accessory muscle use. HEART: Regular rate and rhythm, S1, S2 without murmur, rub or gallop. ABDOMEN: Soft, nontender, nondistended, normoactive bowel sounds, no guarding, no rebound, no hepatosplenomegaly, no masses. EXTREMITIES: 2+ pulses, warm, well-perfused, no edema. NEUROLOGICAL: Cranial nerves II through XII grossly intact. Normal speech, gait not observed. PSYCH: Normal mood, normal affect. SKIN: Warm, dry, normal turgor, no rashes or lesions noted Laboratory Results - last 24 hr 05/27/16 05/27/16 05/27/16 11:21 16:41 22:39 WBC RBC Hgb Hct MCV MCHC RDW Plt Count MPV Neutrophils % Lymphocytes % Monocytes % Eosinophils % Basophils % Sodium Potassium Chloride Carbon Dioxide Anion Gap BUN Creatinine Creat Clearance w eGFR POC Glucometer 160 143 161 Random Glucose Calcium Phosphorus Magnesium Total Bilirubin AST ALT Alkaline Phosphatase Total Protein Albumin 03/01/17 03/01/17 03/01/17 06:29 07:40 07:40 WBC 5.9 RBC 3.83 L Hgb 10.4 L Hct 32.3 L MCV 84.3 MCHC 32.3 RDW 16.0 H Plt Count 152 MPV 9.3 Neutrophils % 64.7 Lymphocytes % 17.5 Monocytes % 7.1 Eosinophils % 10.1 H Basophils % 0.6 Sodium 141 Potassium 3.7 Chloride 102 Carbon Dioxide 29 H Anion Gap 10 BUN 28 H Creatinine 1.8 H Creat Clearance w eGFR 36.58 POC Glucometer 140 Random Glucose 171 H Calcium 8.7 Phosphorus 3.5 Magnesium 2.2 Total Bilirubin 0.5 D AST 14 D ALT 21 Alkaline Phosphatase 52 Total Protein 6.3 L Albumin 4.0 Active Medications Generic Name Dose Route Start Last Admin Trade Name Travq PRN Reason Stop Dose Admin Aspirin 81 mg 05/26/16 10:00 05/28/16 09:46 Asa - PO 81 mg DAILY [facility] Administration Furosemide 40 mg 05/26/16 14:00 05/28/16 06:29 Lasix Injection - IVPUSH 40 mg BID@0600,1400 [facility] Administration Heparin Sodium (Porcine) 5,000 unit 05/26/16 10:00 05/28/16 09:44 Heparin - SQ 5,000 unit Q8H-IV [facility] Administration Hydralazine HCl 100 mg 05/26/16 10:00 05/28/16 09:50 Apresoline - PO 100 mg BID [facility] Administration Insulin Aspart 1 vial 05/26/16 11:00 05/28/16 06:30 Novolog Vial Sliding Scale - SQ Not Given ACHS [facility] Protocol Labetalol HCl 300 mg 05/26/16 10:00 05/28/16 09:47 Normodyne - PO 300 mg BID [facility] Administration Levothyroxine Sodium 50 mcg 05/26/16 07:00 05/28/16 06:30 Synthroid - PO 50 mcg AM [facility] Administration Multivitamins/Minerals/Vitamin C 1 tab 05/26/16 10:00 05/28/16 09:47 Tab-A-Vit - PO 1 tab DAILY [facility] Administration Nifedipine 60 mg 05/26/16 10:00 05/28/16 09:47 Procardia Xl - PO 60 mg DAILY [facility] Administration Potassium Chloride 20 meq 05/27/16 10:00 05/28/16 09:50 K-Dur - PO 20 meq DAILY [facility] Administration Ranitidine HCl 150 mg 05/26/16 10:00 05/28/16 09:47 Zantac - PO 150 mg DAILY [facility] Administration Terazosin HCl 2 mg 05/26/16 10:00 05/28/16 09:47 Hytrin - PO 2 mg BID [facility] Administration Valsartan 320 mg 05/26/16 10:00 05/28/16 09:47 Diovan - PO 320 mg DAILY [facility] Administration IMAGING chest xray (05/26) bilateral pleural disease chest xray (05/27) improvement of vascular congestion, residual billateral pleural effusion ECHO (05/26/16): EF 45-50%, grade II diastolic dysfunction--> ef decreased from prior ECHO 04/15. 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) consulted and followed hypertension - continue hydralzine, labetolol, and nifedepine - strict b/p monitoring 2) pulm - continue duonebs prn - incentive spiromter - supplemental o2 keep spo2 above 92% 3) neph chronic kidney disease - creatine 1.8 baseline 1.6 - ultrasound of kidney/bladder (05/26/16) mild cortical atrophy, no post void residual, unchanged from prior ultrasound from 02/12 - close monitoring of creatine with diuresis - nephrology (Dr Nance) consulted and following 4) endo niddm -hold metformin, fingersticks achs with regular insulin sliding scale -hemoglobin a1c 7.0 f/e/n -low sodium/diabetic diet - replete lytes prn ppx -heparin sq - zantac - oob - scd - pt dispo: requires inpatient telemetry FULL CODE Problem List - Problems (1) BPH (benign prostatic hyperplasia) Code(s): N40.0 - BENIGN PROSTATIC HYPERPLASIA WITHOUT LOWER URINRY TRACT SYMP (2) CKD (chronic kidney disease) Code(s): N18.9 - CHRONIC KIDNEY DISEASE, UNSPECIFIED Qualifiers: Chronic kidney disease stage: stage 1 Qualified Code(s): N18.1 - Chronic kidney disease, stage 1 (3) Diabetes Code(s): E11.9 - TYPE 2 DIABETES MELLITUS WITHOUT COMPLICATIONS Qualifiers: Diabetes mellitus type: type 2 (4) HTN (hypertension) Code(s): I10 - ESSENTIAL (PRIMARY) HYPERTENSION (5) Hypothyroid Code(s): E03.9 - HYPOTHYROIDISM, UNSPECIFIED Qualifiers: Hypothyroidism type: acquired Qualified Code(s): E03.9 - Hypothyroidism, unspecified (6) Diastolic congestive heart failure Code(s): I50.30 - UNSPECIFIED DIASTOLIC (CONGESTIVE) HEART FAILURE Qualifiers : Congestive heart failure chronicity: acute on chronic Qualified Code (s): I50.33 - Acute on chronic diastolic (congestive) heart failure Visit type - Emergency Visit Emergency Visit: Yes ED Registration Date: 05/26/16 Care time: The patient presented to the Emergency Department on the above date and was hospitalized for further evaluation of their emergent condition. - New Patient This patient is new to me today: No - Critical Care Critical Care patient: No - Discharge Referral Referred to [facility] Med P.C.: No
[2016-05-28] MEDS ORDERED: INSULIN (NOVOLOG) ASPART 100 UNITS/ML 10ML VIAL ONE ×2 (16:32→21:18)
--- NOTE | 2016-05-28 16:56 | PN ---
Progress Note, Physician History of Present Illness: Pt seen and examined at bedside. He is awake and alert. He feels that his breathing is improving but not back to normal. He still has lower extremity edema. - Current Medication List Current Medications: Active Medications Aspirin (Asa -) 81 mg PO DAILY [facility] Last Admin: 05/28/16 09:46 Dose: 81 mg Furosemide (Lasix Injection -) 40 mg IVPUSH BID@0600,1400 [facility] Last Admin: 05/28/16 13:24 Dose: 40 mg Heparin Sodium (Porcine) (Heparin -) 5,000 unit SQ Q8H-IV [facility] Last Admin: 05/28/16 09:44 Dose: 5,000 unit Hydralazine HCl (Apresoline -) 100 mg PO BID [facility] Last Admin: 05/28/16 09:50 Dose: 100 mg Insulin Aspart (Novolog Vial Sliding Scale -) 1 vial SQ ACHS [facility] PRN Reason: Protocol Last Admin: 05/28/16 16:34 Dose: 4 units Labetalol HCl (Normodyne -) 300 mg PO BID [facility] Last Admin: 05/28/16 09:47 Dose: 300 mg Levothyroxine Sodium (Synthroid -) 50 mcg PO AM [facility] Last Admin: 05/28/16 06:30 Dose: 50 mcg Multivitamins/Minerals/Vitamin C (Tab-A-Vit -) 1 tab PO DAILY [facility] Last Admin: 05/28/16 09:47 Dose: 1 tab Nifedipine (Procardia Xl -) 60 mg PO DAILY [facility] Last Admin: 05/28/16 09:47 Dose: 60 mg Potassium Chloride (K-Dur -) 20 meq PO DAILY [facility] Last Admin: 05/28/16 09:50 Dose: 20 meq Ranitidine HCl (Zantac -) 150 mg PO DAILY [facility] Last Admin: 05/28/16 09:47 Dose: 150 mg Terazosin HCl (Hytrin -) 2 mg PO BID [facility] Last Admin: 05/28/16 09:47 Dose: 2 mg Valsartan (Diovan -) 320 mg PO DAILY [facility] Last Admin: 05/28/16 09:47 Dose: 320 mg - Objective Vital Signs: Vital Signs Temperature 97.9 F 05/28/16 14:00 Pulse Rate 70 05/28/16 14:00 Respiratory Rate 05/28/16 14:00 Blood Pressure 109/51 05/28/16 14:00 O2 Sat by Pulse Oximetry (%) 95 05/28/16 14:00 Constitutional: Yes: Calm Eyes: Yes: Conjunctiva Clear HENT: Yes: Atraumatic Cardiovascular: Yes: S1, S2 Respiratory: Yes: On Nasal O2 Gastrointestinal: Yes: Normal Bowel Sounds, Soft Genitourinary: Yes: WNL Musculoskeletal: Yes: WNL Edema: Yes Edema: LLE: 1+, RLE: 1+ Neurological: Yes: Oriented Psychiatric: Yes: Oriented Labs: CBC, BMP 05/28/16 07:40 05/28/16 07:40 Problem List - Problems (1) CHF (congestive heart failure) Code(s): I50.9 - HEART FAILURE, UNSPECIFIED Qualifiers: Congestive heart failure type: unspecified congestive heart failure type Congestive heart failure chronicity: acute Qualified Code(s): I50.9 - Heart failure, unspecified (2) BPH (benign prostatic hyperplasia) Code(s): N40.0 - BENIGN PROSTATIC HYPERPLASIA WITHOUT LOWER URINRY TRACT SYMP (3) CKD (chronic kidney disease) Code(s): N18.9 - CHRONIC KIDNEY DISEASE, UNSPECIFIED Qualifiers: Chronic kidney disease stage: stage 1 Qualified Code(s): N18.1 - Chronic kidney disease, stage 1 (4) Diabetes Code(s): E11.9 - TYPE 2 DIABETES MELLITUS WITHOUT COMPLICATIONS Qualifiers: Diabetes mellitus type: type 2 (5) Dyslipidemia Code(s): E78.5 - HYPERLIPIDEMIA, UNSPECIFIED (6) HTN (hypertension) Code(s): I10 - ESSENTIAL (PRIMARY) HYPERTENSION (7) Hypothyroid Code(s): E03.9 - HYPOTHYROIDISM, UNSPECIFIED Qualifiers: Hypothyroidism type: acquired Qualified Code(s): E03.9 - Hypothyroidism, unspecified (8) Obesity Code(s): E66.9 - OBESITY, UNSPECIFIED (9) Pleural effusion Code(s): J90 - PLEURAL EFFUSION, NOT ELSEWHERE CLASSIFIED Assessment/Plan Current Medications Generic Name Dose Route Start Last Admin Trade Name Freq PRN Reason Stop Dose Admin Aspirin 81 mg 05/26/16 10:00 05/28/16 09:46 Asa - PO 81 mg DAILY [facility] Administration Furosemide 40 mg 05/26/16 14:00 05/28/16 13:24 Lasix Injection - IVPUSH 40 mg BID@0600,1400 [facility] Administration Heparin Sodium (Porcine) 5,000 unit 05/26/16 10:00 05/28/16 09:44 Heparin - SQ 5,000 unit Q8H-IV [facility] Administration Hydralazine HCl 100 mg 05/26/16 10:00 05/28/16 09:50 Apresoline - PO 100 mg BID [facility] Administration Insulin Aspart 1 vial 05/26/16 11:00 05/28/16 16:34 Novolog Vial Sliding Scale - SQ 4 units ACHS [facility] Administration Protocol Labetalol HCl 300 mg 05/26/16 10:00 05/28/16 09:47 Normodyne - PO 300 mg BID [facility] Administration Levothyroxine Sodium 50 mcg 05/26/16 07:00 05/28/16 06:30 Synthroid - PO 50 mcg AM [facility] Administration Multivitamins/Minerals/Vitamin C 1 tab 05/26/16 10:00 05/28/16 09:47 Tab-A-Vit - PO 1 tab DAILY [facility] Administration Nifedipine 60 mg 05/26/16 10:00 05/28/16 09:47 Procardia Xl - PO 60 mg DAILY [facility] Administration Potassium Chloride 20 meq 05/27/16 10:00 05/28/16 09:50 K-Dur - PO 20 meq DAILY [facility] Administration Ranitidine HCl 150 mg 05/26/16 10:00 05/28/16 09:47 Zantac - PO 150 mg DAILY [facility] Administration Terazosin HCl 2 mg 05/26/16 10:00 05/28/16 09:47 Hytrin - PO 2 mg BID [facility] Administration Valsartan 320 mg 05/26/16 10:00 05/28/16 09:47 Diovan - PO 320 mg DAILY [facility] Administration Impression 1. CKD 2. acute CHF diastolic 3. pleural effusion 4. HTN 5. DM 6. BPH 7. hypothyroidism Plan - cont with IV lasix - repeat labs in am - renal function is stable - will need proteinuria workup, can be done as outpt, he will follow with Dr Mejia - cont with diovan - will reorder protein to creatinine ratio - will follow - discussed with hospitalist team Dr Mayo
[2016-05-29] MEDS: HEPARIN NA (PORCINE) 5,000 UNITS/ML 1ML VIAL SQ SCH ×3 (01:14→17:06)
[2016-05-29] MEDS: FUROSEMIDE 40 MG/4 ML INJECTABLE VIAL IVPUSH SCH (05:43)
[2016-05-29] MEDS: LEVOTHYROXINE NA 50 MCG TABLET (FP) PO SCH (06:15)
[2016-05-29] MEDS: INSULIN SLIDING SCALE (NOVOLOG) 1 VIAL SQ SCH ×4 (06:18→22:19)
[2016-05-29 08:22] LABS: BASOPHIL 0.4 % (0-2.0); EOSINOPHIL 7.9 % (0-4.5); MCH 28.2 pg (25.7-33.7); MCHC 33.8 g/dl (32.0-35.9); MEAN CELL VOLUME 83.4 fl (80-96); MEAN PLT VOLUME 9.3 fl (7.5-11.1); NEUTROPHILS 69.1 % (42.8-82.8); PLATELET COUNT 163 K/MM3 (134-434); WHITE BLOOD COUNT 5.8 K/mm3 (4.0-10.0)
[2016-05-29 08:44] LABS: CALCIUM 8.9 mg/dl (8.4-10.2); CREATININE 1.9 mg/dl (0.6-1.3); MAGNESIUM 2.1 mg/dL (1.8-2.4); PHOSPHOROUS 3.7 mg/dl (2.5-4.6)
[2016-05-29] MEDS ORDERED: PT OWN MED DRAWER 7, Y5N ONE ×2 (09:53→21:09)
[2016-05-29] MEDS: RANITIDINE HCL 150 MG TABLET (FP) PO SCH (10:05)
[2016-05-29] MEDS: LABETALOL HCL 100 MG TABLET (FP) PO SCH ×2 (10:05→21:26)
[2016-05-29] MEDS: POTASSIUM CHLORIDE TABS 10 MEQ TABLET.ER (FP) PO SCH (10:05)
[2016-05-29] MEDS: NIFEdipine E.R 60 MG TABLET (UD) PO SCH (10:05)
[2016-05-29] MEDS: TERAZOSIN HCL 1 MG CAPSULE PO SCH ×2 (10:05→21:26)
[2016-05-29] MEDS: MULTIVITAMINS (DAILY MVI) TABLET (FP) PO SCH (10:05)
[2016-05-29] MEDS: ASPIRIN 81 MG CHEWABLE TABLETS PO SCH (10:05)
[2016-05-29] MEDS: hydrALAZINE HCL 50 MG TABLET (FP) PO SCH ×2 (10:05→21:26)
[2016-05-29] MEDS: VALSARTAN 160 MG TABLET (UD) PO SCH (10:06)
[2016-05-29] MEDS ORDERED: INSULIN (NOVOLOG) ASPART 100 UNITS/ML 10ML VIAL ONE ×2 (11:19→16:30)
--- NOTE | 2016-05-29 11:30 | PN ---
Progress Note, Physician History of Present Illness: Pt seen and examined at bedside. He is awake and alert. He feels that his breathing is improved. He is now off of oxygen. - Current Medication List Current Medications: Active Medications Aspirin (Asa -) 81 mg PO DAILY [facility] Last Admin: 05/29/16 10:05 Dose: 81 mg Furosemide (Lasix Injection -) 40 mg IVPUSH BID@0600,1400 [facility] Last Admin: 05/29/16 05:43 Dose: 40 mg Heparin Sodium (Porcine) (Heparin -) 5,000 unit SQ Q8H-IV [facility] Last Admin: 05/29/16 10:05 Dose: 5,000 unit Hydralazine HCl (Apresoline -) 100 mg PO BID [facility] Last Admin: 05/29/16 10:05 Dose: 100 mg Insulin Aspart (Novolog Vial Sliding Scale -) 1 vial SQ ACHS [facility] PRN Reason: Protocol Last Admin: 05/29/16 06:18 Dose: Not Given Labetalol HCl (Normodyne -) 300 mg PO BID [facility] Last Admin: 05/29/16 10:05 Dose: 300 mg Levothyroxine Sodium (Synthroid -) 50 mcg PO AM [facility] Last Admin: 05/29/16 06:15 Dose: 50 mcg Multivitamins/Minerals/Vitamin C (Tab-A-Vit -) 1 tab PO DAILY [facility] Last Admin: 05/29/16 10:05 Dose: 1 tab Nifedipine (Procardia Xl -) 60 mg PO DAILY [facility] Last Admin: 05/29/16 10:05 Dose: 60 mg Potassium Chloride (K-Dur -) 20 meq PO DAILY [facility] Last Admin: 05/29/16 10:05 Dose: 20 meq Ranitidine HCl (Zantac -) 150 mg PO DAILY [facility] Last Admin: 05/29/16 10:05 Dose: 150 mg Terazosin HCl (Hytrin -) 2 mg PO BID [facility] Last Admin: 05/29/16 10:05 Dose: 2 mg Valsartan (Diovan -) 320 mg PO DAILY [facility] Last Admin: 05/29/16 10:06 Dose: 320 mg - Objective Vital Signs: Vital Signs Temperature 97.6 F 05/29/16 10:04 Pulse Rate 65 05/29/16 10:40 Respiratory Rate 19 05/29/16 10:04 Blood Pressure 174/74 05/29/16 10:04 O2 Sat by Pulse Oximetry (%) 98 05/29/16 10:40 Constitutional: Yes: Calm Eyes: Yes: Conjunctiva Clear HENT: Yes: Atraumatic Cardiovascular: Yes: S1, S2 Respiratory: Yes: CTA Bilaterally Gastrointestinal: Yes: Soft Genitourinary: Yes: WNL Breast(s): Yes: WNL Musculoskeletal: Yes: WNL Extremities: Yes: WNL Edema: LLE: Trace, RLE: Trace Neurological: Yes: Oriented Psychiatric: Yes: Oriented Labs: CBC, BMP 05/29/16 07:00 05/29/16 07:00 Problem List - Problems (1) CHF (congestive heart failure) Code(s): I50.9 - HEART FAILURE, UNSPECIFIED Qualifiers: Congestive heart failure type: unspecified congestive heart failure type Congestive heart failure chronicity: acute Qualified Code(s): I50.9 - Heart failure, unspecified (2) BPH (benign prostatic hyperplasia) Code(s): N40.0 - BENIGN PROSTATIC HYPERPLASIA WITHOUT LOWER URINRY TRACT SYMP (3) CKD (chronic kidney disease) Code(s): N18.9 - CHRONIC KIDNEY DISEASE, UNSPECIFIED Qualifiers: Chronic kidney disease stage: stage 1 Qualified Code(s): N18.1 - Chronic kidney disease, stage 1 (4) Diabetes Code(s): E11.9 - TYPE 2 DIABETES MELLITUS WITHOUT COMPLICATIONS Qualifiers: Diabetes mellitus type: type 2 (5) Dyslipidemia Code(s): E78.5 - HYPERLIPIDEMIA, UNSPECIFIED (6) HTN (hypertension) Code(s): I10 - ESSENTIAL (PRIMARY) HYPERTENSION (7) Hypothyroid Code(s): E03.9 - HYPOTHYROIDISM, UNSPECIFIED Qualifiers: Hypothyroidism type: acquired Qualified Code(s): E03.9 - Hypothyroidism, unspecified (8) Obesity Code(s): E66.9 - OBESITY, UNSPECIFIED (9) Pleural effusion Code(s): J90 - PLEURAL EFFUSION, NOT ELSEWHERE CLASSIFIED Assessment/Plan Current Medications Generic Name Dose Route Start Last Admin Trade Name Freq PRN Reason Stop Dose Admin Aspirin 81 mg 05/26/16 10:00 05/29/16 10:05 Asa - PO 81 mg DAILY [facility] Administration Furosemide 40 mg 05/26/16 14:00 05/29/16 05:43 Lasix Injection - IVPUSH 40 mg BID@0600,1400 [facility] Administration Heparin Sodium (Porcine) 5,000 unit 05/26/16 10:00 05/29/16 10:05 Heparin - SQ 5,000 unit Q8H-IV [facility] Administration Hydralazine HCl 100 mg 05/26/16 10:00 05/29/16 10:05 Apresoline - PO 100 mg BID [facility] Administration Insulin Aspart 1 vial 05/26/16 11:00 05/29/16 06:18 Novolog Vial Sliding Scale - SQ Not Given ACHS [facility] Protocol Labetalol HCl 300 mg 05/26/16 10:00 05/29/16 10:05 Normodyne - PO 300 mg BID [facility] Administration Levothyroxine Sodium 50 mcg 05/26/16 07:00 05/29/16 06:15 Synthroid - PO 50 mcg AM [facility] Administration Multivitamins/Minerals/Vitamin C 1 tab 05/26/16 10:00 05/29/16 10:05 Tab-A-Vit - PO 1 tab DAILY [facility] Administration Nifedipine 60 mg 05/26/16 10:00 05/29/16 10:05 Procardia Xl - PO 60 mg DAILY [facility] Administration Potassium Chloride 20 meq 05/27/16 10:00 05/29/16 10:05 K-Dur - PO 20 meq DAILY [facility] Administration Ranitidine HCl 150 mg 05/26/16 10:00 05/29/16 10:05 Zantac - PO 150 mg DAILY [facility] Administration Terazosin HCl 2 mg 05/26/16 10:00 05/29/16 10:05 Hytrin - PO 2 mg BID [facility] Administration Valsartan 320 mg 05/26/16 10:00 05/29/16 10:06 Diovan - PO 320 mg DAILY [facility] Administration Impression 1. CKD 2. acute CHF diastolic 3. pleural effusion 4. HTN 5. DM 6. BPH 7. hypothyroidism Plan - pts volume status is improved - can switch from IV lasix to PO - pt will need to follow with Dr Mejia as outpt - cont with valsartan as he does have proteinuria, which will need further workup as outpt. 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
[2016-05-29] MEDS: FUROSEMIDE 40 MG TABLET (FP) PO SCH (13:09)
--- NOTE | 2016-05-29 14:35 | PN ---
[id number], speaking full sentences. OBJECTIVE:patient is a 80 y/o male with a past medical history of CRISTINA (no BIPAP) , HTN, BPH, NIDDM, and diastolic congestive heart failure. Patient was admitted from the emergency department for diastolic congestive heart failure Vital Signs Period Temp Pulse Resp BP Sys/Eisenberg Pulse Ox Last 24 Hr 97.5 F-98.4 F 62-74 18-19 110-174/52-74 94-98 Intake & Output Intake & Output 05/26/16 05/27/16 05/28/16 05/29/16 23:59 23:59 23:59 23:59 Intake Total 775 1548 860 Output Total 2750 2260 5385 1475 Balance -6490 -1875 -877 -615 Weight 99.79 kg 96.176 kg 94.367 kg 93.001 kg GENERAL: The patient is awake, alert, and fully oriented, in no acute distress. HEAD: Normal with no signs of trauma. EYES: PERRL, extraocular movements intact, sclera anicteric, conjunctiva clear. No ptosis. ENT: Ears normal, nares patent, oropharynx clear without exudates, moist mucous membranes. NECK: Trachea midline, full range of motion, supple. LUNGS: Breath sounds equal, clear to auscultation bilaterally to apexes, diminished to bases, no wheezes, no crackles, no accessory muscle use. HEART: Regular rate and rhythm, S1, S2 without murmur, rub or gallop. ABDOMEN: Soft, nontender, nondistended, normoactive bowel sounds, no guarding, no rebound, no hepatosplenomegaly, no masses. EXTREMITIES: 2+ pulses, warm, well-perfused, no edema. NEUROLOGICAL: Cranial nerves II through XII grossly intact. Normal speech, gait not observed. PSYCH: Normal mood, normal affect. SKIN: Warm, dry, normal turgor, no rashes or lesions noted Laboratory Results - last 24 hr 05/28/16 05/28/16 05/29/16 16:26 21:09 06:17 WBC RBC Hgb Hct MCV MCHC RDW Plt Count MPV Neutrophils % Lymphocytes % Monocytes % Eosinophils % Basophils % Sodium Potassium Chloride Carbon Dioxide Anion Gap BUN Creatinine POC Glucometer 218 183 142 Random Glucose Calcium Phosphorus Magnesium 05/29/16 05/29/16 05/29/16 07:00 07:00 11:06 WBC 5.8 RBC 3.90 L Hgb 11.0 L Hct 32.5 L MCV 83.4 MCHC 33.8 RDW 16.0 H Plt Count 163 MPV 9.3 Neutrophils % 69.1 Lymphocytes % 16.1 Monocytes % 6.5 Eosinophils % 7.9 H Basophils % 0.4 Sodium 140 Potassium 3.6 Chloride 104 Carbon Dioxide 28 Anion Gap 8 BUN 28 H Creatinine 1.9 H POC Glucometer 184 Random Glucose 174 H Calcium 8.9 Phosphorus 3.7 Magnesium 2.1 Active Medications Generic Name Dose Route Start Last Admin Trade Name Freq PRN Reason Stop Dose Admin Aspirin 81 mg 05/26/16 10:00 05/29/16 10:05 Asa - PO 81 mg DAILY [facility] Administration Furosemide 80 mg 05/29/16 14:00 05/29/16 13:09 Lasix - PO 80 mg BID@0600,1400 [facility] Administration Heparin Sodium (Porcine) 5,000 unit 05/26/16 10:00 05/29/16 10:05 Heparin - SQ 5,000 unit Q8H-IV [facility] Administration Hydralazine HCl 100 mg 05/26/16 10:00 05/29/16 10:05 Apresoline - PO 100 mg BID [facility] Administration Insulin Aspart 1 vial 05/26/16 11:00 05/29/16 11:28 Novolog Vial Sliding Scale - SQ 2 units ACHS [facility] Administration Protocol Insulin Detemir 30 units 05/29/16 22:00 Levemir Vial SQ HS [facility] Labetalol HCl 300 mg 05/26/16 10:00 05/29/16 10:05 Normodyne - PO 300 mg BID [facility] Administration Levothyroxine Sodium 50 mcg 05/26/16 07:00 05/29/16 06:15 Synthroid - PO 50 mcg AM [facility] Administration Multivitamins/Minerals/Vitamin C 1 tab 05/26/16 10:00 05/29/16 10:05 Tab-A-Vit - PO 1 tab DAILY [facility] Administration Nifedipine 60 mg 05/26/16 10:00 05/29/16 10:05 Procardia Xl - PO 60 mg DAILY [facility] Administration Potassium Chloride 20 meq 05/27/16 10:00 05/29/16 10:05 K-Dur - PO 20 meq DAILY [facility] Administration Ranitidine HCl 150 mg 05/26/16 10:00 05/29/16 10:05 Zantac - PO 150 mg DAILY [facility] Administration Terazosin HCl 2 mg 05/26/16 10:00 05/29/16 10:05 Hytrin - PO 2 mg BID [facility] Administration Valsartan 320 mg 05/26/16 10:00 05/29/16 10:06 Diovan - PO 320 mg DAILY [facility] Administration IMAGING chest xray (05/26) bilateral pleural disease chest xray (05/27) improvement of vascular congestion, residual billateral pleural effusion ECHO (05/26/16): EF 45-50%, grade II diastolic dysfunction--> ef decreased from prior ECHO 04/15. 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) consulted and followed hypertension - continue hydralzine, labetolol, and nifedepine - strict b/p monitoring 2) pulm - continue duonebs prn - incentive spiromter - supplemental o2 keep spo2 above 92% 3) neph chronic kidney disease - creatine 1.9 baseline 1.6 - ultrasound of kidney/bladder (05/26/16) mild cortical atrophy, no post void residual, unchanged from prior ultrasound from 02/12 - close monitoring of creatine with diuresis - nephrology (Dr Nance) consulted and following 4) endo niddm -hold metformin, fingersticks achs with regular insulin sliding scale -hemoglobin a1c 7.0 f/e/n -low sodium/diabetic diet - replete lytes prn ppx -heparin sq - zantac - oob - scd - pt dispo: requires inpatient telemetry FULL CODE Problem List - Problems (1) BPH (benign prostatic hyperplasia) Code(s): N40.0 - BENIGN PROSTATIC HYPERPLASIA WITHOUT LOWER URINRY TRACT SYMP (2) CKD (chronic kidney disease) Code(s): N18.9 - CHRONIC KIDNEY DISEASE, UNSPECIFIED Qualifiers: Chronic kidney disease stage: stage 1 Qualified Code(s): N18.1 - Chronic kidney disease, stage 1 (3) Diabetes Code(s): E11.9 - TYPE 2 DIABETES MELLITUS WITHOUT COMPLICATIONS Qualifiers: Diabetes mellitus type: type 2 (4) HTN (hypertension) Code(s): I10 - ESSENTIAL (PRIMARY) HYPERTENSION (5) Hypothyroid Code(s): E03.9 - HYPOTHYROIDISM, UNSPECIFIED Qualifiers: Hypothyroidism type: acquired Qualified Code(s): E03.9 - Hypothyroidism, unspecified (6) Diastolic congestive heart failure Code(s): I50.30 - UNSPECIFIED DIASTOLIC (CONGESTIVE) HEART FAILURE Qualifiers : Congestive heart failure chronicity: acute on chronic Qualified Code (s): I50.33 - Acute on chronic diastolic (congestive) heart failure Visit type - Emergency Visit Emergency Visit: Yes ED Registration Date: 05/26/16 Care time: The patient presented to the Emergency Department on the above date and was hospitalized for further evaluation of their emergent condition. - New Patient This patient is new to me today: No - Critical Care Critical Care patient: No - Discharge Referral Referred to [facility] Med P.C.: No
[2016-05-29] MEDS ORDERED: INSULIN DETEMIR 100 UNITS/ML MDV SQ SCH (22:00)
[2016-05-29 23:03] VITALS: TEMP 97.9
[2016-05-30] MEDS: HEPARIN NA (PORCINE) 5,000 UNITS/ML 1ML VIAL SQ SCH (02:18)
[2016-05-30] MEDS: FUROSEMIDE 40 MG TABLET (FP) PO SCH (06:18)
[2016-05-30] MEDS: LEVOTHYROXINE NA 50 MCG TABLET (FP) PO SCH (06:18)
[2016-05-30] MEDS: INSULIN SLIDING SCALE (NOVOLOG) 1 VIAL SQ SCH ×2 (06:20→11:41)
[2016-05-30 06:43] VITALS: BP 165/69; PULSE 69
[2016-05-30] MEDS: hydrALAZINE HCL 50 MG TABLET (FP) PO SCH (09:53)
[2016-05-30] MEDS: ASPIRIN 81 MG CHEWABLE TABLETS PO SCH (09:53)
[2016-05-30] MEDS: LABETALOL HCL 100 MG TABLET (FP) PO SCH (09:54)
[2016-05-30] MEDS: VALSARTAN 160 MG TABLET (UD) PO SCH (09:54)
[2016-05-30] MEDS: RANITIDINE HCL 150 MG TABLET (FP) PO SCH (09:55)
[2016-05-30] MEDS: POTASSIUM CHLORIDE TABS 10 MEQ TABLET.ER (FP) PO SCH (09:55)
[2016-05-30] MEDS: NIFEdipine E.R 60 MG TABLET (UD) PO SCH (09:55)
[2016-05-30] MEDS: MULTIVITAMINS (DAILY MVI) TABLET (FP) PO SCH (09:56)
--- NOTE | 2016-05-30 11:04 | DS ---
Physical Exam: SUBJECTIVE: Patient seen and examined, reports feeling well, denies any chest pain or shortness of breath, ambulatory at bedside, denies any dyspnea upon exertion OBJECTIVE: Vital Signs Period Temp Pulse Resp BP Sys/Eisenberg Pulse Ox Last 24 Hr 97.5 F-97.9 F 62-74 17-19 110-165/52-69 94-96 PHYSICAL EXAM GENERAL: The patient is awake, alert, and fully oriented, in no acute distress. HEAD: Normal with no signs of trauma. EYES: PERRL, extraocular movements intact, sclera anicteric, conjunctiva clear. ENT: Ears normal, nares patent, oropharynx clear without exudates, moist mucous membranes. NECK: Trachea midline, full range of motion, supple. LUNGS: Breath sounds equal, clear to auscultation bilaterally, no wheezes, no crackles, no accessory muscle use. HEART: Regular rate and rhythm, S1, S2 without murmur, rub or gallop. ABDOMEN: Soft, nontender, nondistended, normoactive bowel sounds, no guarding, no rebound, no hepatosplenomegaly, no masses. EXTREMITIES: 2+ pulses, warm, well-perfused, no edema. NEUROLOGICAL: Cranial nerves II through XII grossly intact. Normal speech, gait not observed. PSYCH: Normal mood, normal affect. SKIN: Warm, dry, normal turgor, no rashes or lesions noted. LABS Laboratory Results - last 24 hr 05/29/16 05/29/16 05/29/16 11:06 16:26 21:24 POC Glucometer 184 206 190 05/30/16 06:36 POC Glucometer 139 HOSPITAL COURSE: Date of Admission:05/26/16 Date of Discharge: 05/30/16 Minutes to complete discharge: 45 Discharge Summary Reason For Visit: CHF Current Active Problems CHF (congestive heart failure) (Acute) Diastolic congestive heart failure (Acute) Pleural effusion (Acute) Condition: Stable - Instructions Referrals: Abiodun Martinez MD [Primary Care Provider] - - Home Medications Comprehensive Discharge Medication List: Ambulatory Orders Hydralazine HCl 100 mg PO BID 11/19/13 Insulin (Levemir) [Levemir Flexpen -] 80 units SQ HS 11/19/13 Nifedipine [Nifedical Xl] 60 mg PO DAILY 11/19/13 Telmisartan [Micardis] 80 mg PO DAILY 11/19/13 Insulin Regular, Human [Humulin R -] 0 - 20 units SQ TID PRN 09/18/14 Glimepiride 4 mg PO BID 05/16/15 Glipizide/Metformin HCl [Glipizide-Metformin 2.5-250 mg] 1 each PO DAILY Labetalol HCl 300 mg PO BID 02/07/16 Levothyroxine [Synthroid -] 50 mcg PO DAILY 02/07/16 Terazosin HCl 2 mg PO BID 02/07/16 Multivitamins [Multivit ([facility])] 1 tab PO DAILY #0 tab 02/15/16 Aspirin [ASA -] 81 mg PO DAILY 05/26/16 Problem List - Problems (1) BPH (benign prostatic hyperplasia) Code(s): N40.0 - BENIGN PROSTATIC HYPERPLASIA WITHOUT LOWER URINRY TRACT SYMP (2) CKD (chronic kidney disease) Code(s): N18.9 - CHRONIC KIDNEY DISEASE, UNSPECIFIED Qualifiers: Chronic kidney disease stage: stage 1 Qualified Code(s): N18.1 - Chronic kidney disease, stage 1 (3) Diabetes Code(s): E11.9 - TYPE 2 DIABETES MELLITUS WITHOUT COMPLICATIONS Qualifiers: Diabetes mellitus type: type 2 (4) HTN (hypertension) Code(s): I10 - ESSENTIAL (PRIMARY) HYPERTENSION (5) Hypothyroid Code(s): E03.9 - HYPOTHYROIDISM, UNSPECIFIED Qualifiers: Hypothyroidism type: acquired Qualified Code(s): E03.9 - Hypothyroidism, unspecified (6) Diastolic congestive heart failure Code(s): I50.30 - UNSPECIFIED DIASTOLIC (CONGESTIVE) HEART FAILURE Qualifiers : Congestive heart failure chronicity: acute on chronic Qualified Code (s): I50.33 - Acute on chronic diastolic (congestive) heart failure - Discharge Referral Referred to [facility] No
[2016-05-30] MEDS: TERAZOSIN HCL 1 MG CAPSULE PO SCH (11:41)
== END 2016-05-30 12:11 | disposition home health service (06) | DRG 291 ==
LOC: FER 01:30 → FM/S 03:24
PROVIDERS: ADMIT Internal Medicine; ATTEND Nurse Practitioner Family
DX: I13.0 Hypertensive heart and chronic kidney disease with heart failure and stage 1 through stage 4 chronic kidney disease, or unspecified chronic kidney disease (principal); I50.33 Acute on chronic diastolic (congestive) heart failure; N40.0 Benign prostatic hyperplasia without lower urinary tract symptoms; E11.22 Type 2 diabetes mellitus with diabetic chronic kidney disease; N18.1 Chronic kidney disease, stage 1; E03.9 Hypothyroidism, unspecified; G47.33 Obstructive sleep apnea (adult) (pediatric); Z79.4 Long term (current) use of insulin; E66.9 Obesity, unspecified; Z68.29 Body mass index [BMI] 29.0-29.9, adult
CPT/HCPCS: 36415; 71010-TC; 71020-TC; 71250-TC; 76775-TC; 76856-TC; 80048; 80053; 81003; 81015; 82550; 82553; 83036; 83735; 83880; 84100; 84436; 84443; 84484; 85025; 85379; 93005; 93306-TC; 94010; 94640; 94761; 97116-GP; 97161-GP; 99283-25; J1644

== ENCOUNTER 2016-09-19 15:22 | Emergency (ER) | payer BC, OTHER ==
[2016-09-19 15:31] VITALS: TEMP 98; BMI 30.8
[2016-09-19] MEDS ORDERED: DEXTROSE 50%-WATER 50 ML DISP.SYRIN ONE ×2 (15:35→15:37)
[2016-09-19] MEDS ORDERED: DEXTROSE 50%-WATER 50 ML VIAL IVPUSH ONE (15:49)
[2016-09-19 16:20] LABS: BASOPHIL 0.5 % (0-2.0); EOSINOPHIL 5.7 % (0-4.5); MCH 28.2 pg (25.7-33.7); MCHC 32.8 g/dl (32.0-35.9); MEAN CELL VOLUME 85.9 fl (80-96); MEAN PLT VOLUME 8.8 fl (7.5-11.1); NEUTROPHILS 53.1 % (42.8-82.8); PLATELET COUNT 167 K/MM3 (134-434); RDW 16.2 % (11.9-15.9); WHITE BLOOD COUNT 5.2 K/mm3 (4.0-10.0)
[2016-09-19 16:32] LABS: INR 0.97 (0.82-1.09); PROTHROMBIN TIME (PATIENT) 10.7 SEC (9.98-11.88)
--- NOTE | 2016-09-19 16:38 | PDOC ---
History of Present Illness - General History Source: Patient, Family Exam Limitations: No Limitations - History of Present Illness Initial Comments: 09/19/16 16:38 The patient is an 81 year old male, with significant past medical history of DM , hypertension, hyperlipidemia, hypothyroidism, and BPH, who presents today complaining of multiple syncopal episodes and weakness starting this morning. The patient explains that his blood glucose was in the 300s this morning which is unusual, so he administered 25 units of humalog. The patient went to a routine cardiology appointment and upon arrival home after the appointment, the patient was nodding off and very out of it. The patients and daughter brought him to the ED. Upon arrival to the ED, the patients blood glucose was 30. The family reports that they have not calibrated or checked the glucose meter in a long time. Denies chest pain, SOB. Denies fever, chills, nausea, vomiting. Allergies: none reported Surgical Hx: bilateral total knee replacement PCP- Dr. Kelley Michael Warehouse Foreman - Dr. Desean Estrada <Quita Guadalupe - Last Filed: 09/19/16 16:40> <Lito Collins - Last Filed: 09/19/16 17:28> - General Chief Complaint: Weakness Stated Complaint: WEAKNESS Time Seen by Provider: 09/19/16 15:47 Past History <Quita Guadalupe - Last Filed: 09/19/16 16:40> - Past Medical History Anemia: No Asthma: No Cancer: No Cardiac Disorders: No CVA: No COPD: No CHF: No Dementia: No Diabetes: Yes (OVER 1O YRS) GI Disorders: No Disorders: Yes (BPH) HTN: Yes Hypercholesterolemia: Yes Liver Disease: No Seizures: No Thyroid Disease: Yes (HYPOTHYROIDISM) - Surgical History Abdominal Surgery: No Appendectomy: No Cardiac Surgery: No Cholecystectomy: No Lung Surgery: No Neurologic Surgery: No Orthopedic Surgery: Yes (BILATERAL TKR 8 AND 10 YEARS AGO) - Psycho/Social/Smoking Cessation Hx Anxiety: No Suicidal Ideation: No Smoking History: Never smoked Have you smoked in the past 12 months: No Information on smoking cessation initiated: No Hx Alcohol Use: No Drug/Substance Use Hx: No Substance Use Type: None Hx Substance Use Treatment: No <Lito Collins - Last Filed: 09/19/16 17:28> - Past Medical History Allergies/Adverse Reactions: Allergies Allergy/AdvReac Type Severity Reaction Status Date / Time No Known Drug Allergies Allergy Verified 09/19/16 15:26 Home Medications: Ambulatory Orders Hydralazine HCl 100 mg PO BID 11/19/13 Insulin Regular, Human [Humulin R -] 0 - 20 units SQ TID PRN 09/18/14 Glimepiride 4 mg PO BID 05/16/15 Glipizide/Metformin HCl [Glipizide-Metformin 2.5-250 mg] 1 each PO DAILY Labetalol HCl 300 mg PO BID 02/07/16 Levothyroxine [Synthroid -] 50 mcg PO DAILY 02/07/16 Terazosin HCl 2 mg PO BID 02/07/16 Aspirin [ASA -] 81 mg PO DAILY 05/26/16 Finasteride 5 mg PO DAILY 09/19/16 Furosemide [Lasix -] 80 mg PO DAILY 09/19/16 Insulin (Levemir) [Levemir Vial] 60 units SQ HS 09/19/16 Nifedipine ER [Procardia Xl -] 30 mg PO DAILY 09/19/16 Pregabalin [Lyrica -] 75 mg PO DAILY 09/19/16 Spironolactone 25 mg PO DAILY 09/19/16 Telmisartan [Micardis] 80 mg PO DAILY 09/19/16 Review of Systems - Review of Systems Able to Perform ROS?: Yes Comments:: 09/19/16 16:38 GENERAL/CONSTITUTIONAL: +weakness. No fever or chills. HEAD, EYES, EARS, NOSE AND THROAT: No change in vision. No ear pain or discharge. No sore throat. CARDIOVASCULAR: No chest pain or shortness of breath. RESPIRATORY: No cough, wheezing, or hemoptysis. GASTROINTESTINAL: No nausea, vomiting, diarrhea or constipation. GENITOURINARY: No dysuria, frequency, or change in urination. MUSCULOSKELETAL: No joint or muscle swelling or pain. No neck or back pain. SKIN: No rash NEUROLOGIC: No headache, vertigo, loss of consciousness, or change in strength/ sensation. ENDOCRINE: No increased thirst. No abnormal weight change. HEMATOLOGIC/LYMPHATIC: No anemia, easy bleeding, or history of blood clots. ALLERGIC/IMMUNOLOGIC: No hives or skin allergy. <Quita Guadalupe - Last Filed: 09/19/16 16:40> *Physical Exam - Vital Signs Last Vital Signs Temp Pulse Resp BP Pulse Ox 98.0 F 52 L 18 200/90 98 09/19/16 15:26 09/19/16 15:26 09/19/16 15:26 09/19/16 15:26 09/19/16 15:26 - Physical Exam Comments: 09/19/16 16:39 GENERAL: Awake, alert, and fully oriented, in no acute distress. Eating 2 turkey sandwiches with mayonnaise HEAD: No signs of trauma EYES: PERRLA, EOMI, sclera anicteric, conjunctiva clear ENT: Auricles normal inspection, hearing grossly normal, nares patent, oropharynx clear without exudates. Moist mucosa NECK: Normal ROM, supple, no lymphadenopathy, JVD, or masses LUNGS: Breath sounds equal, clear to auscultation bilaterally. No wheezes, and no crackles HEART: Regular rate and rhythm, normal S1 and S2, no murmurs, rubs or gallops ABDOMEN: Soft, nontender, normoactive bowel sounds. No guarding, no rebound. No masses EXTREMITIES: Normal range of motion, no edema. No clubbing or cyanosis. No cords , erythema, or tenderness NEUROLOGICAL: Cranial nerves II through XII grossly intact. Normal speech, normal gait SKIN: Warm, Dry, normal turgor, no rashes or lesions noted. <Quita Guadalupe - Last Filed: 09/19/16 16:40> - Vital Signs Last Vital Signs Temp Pulse Resp BP Pulse Ox 98.0 F 52 L 18 200/90 98 09/19/16 15:26 09/19/16 15:26 09/19/16 15:26 09/19/16 15:26 09/19/16 15:26 <Lito Collins - Last Filed: 09/19/16 17:28> Heart Score/ECG Review #1 General ECG Interpretation: Sinus Rhythm, Normal Rate, Normal Intervals Compared to previous ECG there are: No significant change <Quita Guadalupe - Last Filed: 09/19/16 16:40> ED Treatment Course - LABORATORY CBC & Chemistry Diagram: 09/19/16 15:55 09/19/16 15:55 - ADDITIONAL ORDERS Additional order review: 09/19/16 15:55 RBC 4.50 MCV 85.9 MCHC 32.8 RDW 16.2 H MPV 8.8 Neutrophils % 53.1 D Lymphocytes % 30.8 D Monocytes % 9.9 D Eosinophils % 5.7 H Basophils % 0.5 - Medications Given in the ED: ED Medications Discontinued Medications Generic Name Dose Route Start Last Admin Trade Name Freq PRN Reason Stop Dose Admin Dextrose 100 ml 09/19/16 15:49 09/19/16 15:54 D50w (Vial) - IVPUSH 09/19/16 15:50 100 ml NOW ONE Administration <Quita Guadalupe - Last Filed: 09/19/16 16:40> - LABORATORY CBC & Chemistry Diagram: 09/19/16 15:55 09/19/16 15:55 - ADDITIONAL ORDERS Additional order review: 09/19/16 15:55 RBC 4.50 MCV 85.9 MCHC 32.8 RDW 16.2 H MPV 8.8 Neutrophils % 53.1 D Lymphocytes % 30.8 D Monocytes % 9.9 D Eosinophils % 5.7 H Basophils % 0.5 - Medications Given in the ED: ED Medications Discontinued Medications Generic Name Dose Route Start Last Admin Trade Name Freq PRN Reason Stop Dose Admin Dextrose 100 ml 09/19/16 15:49 09/19/16 15:54 D50w (Vial) - IVPUSH 09/19/16 15:50 100 ml NOW ONE Administration <Lito Collins - Last Filed: 09/19/16 17:28> *DC/Admit/Observation/Transfer - Attestations Scribe Attestion: 09/19/16 16:40 Documentation prepared by SHERON Stern, acting as manager medical for Lito Collins DO. <Quita Guadalupe - Last Filed: 09/19/16 16:40> - Discharge Dispostion Admit: No - Attestations Physician Attestion: 09/19/16 16:37 I, Dr. Lito Collins, attest that this document has been prepared under my direction and personally reviewed by me in its entirety. I further attest, that it accurately reflects all work, treatment, procedures and medical decision -making performed by me. <Lito Collins - Last Filed: 09/19/16 17:28> Diagnosis at time of Disposition: Hypoglycemia - Discharge Dispostion Disposition: HOME Condition at time of disposition: Good - Referrals Referrals: Kelley Michael MD [Primary Care Provider] - - Patient Instructions Printed Discharge Instructions: DI for Hypoglycemia Additional Instructions: Mr Verma- You may need to get a new glucometer. Return to us if any problems. Try to have a great weekend
[2016-09-19 16:43] LABS: ALBUMIN 4.3 g/dl (3.4-5.0); ANION GAP 8 (8-16); BILIRUBIN,TOTAL 0.5 mg/dL (0.2-1.0); CALCIUM 9.5 mg/dL (8.5-10.1); CO2 30 mmol/L (21-32); CREATININE 2.5 mg/dL (0.7-1.3); SGOT/AST 28 U/L (15-37); SGPT/ALT 48 U/L (12-78); TOT PROT 7.8 g/dl (6.4-8.2)
[2016-09-19 16:44] LABS: ALK PHOS 73 U/L (45-117)
[2016-09-19 16:49] VITALS: BP 169/69; PULSE 56
[2016-09-19 17:11] LABS: GLUCOSE,RANDOM 35 mg/dL (74-106)
--- NOTE | 2016-09-24 10:42 | EKG ---
Test Reason : Blood Pressure : / mmHG Vent. Rate : 050 BPM Atrial Rate : 050 BPM P-R Int : 214 ms QRS Dur : 100 ms QT Int : 484 ms P-R-T Axes : 081 -39 -03 degrees QTc Int : 441 ms SINUS BRADYCARDIA WITH 1ST DEGREE A-V BLOCK LEFT AXIS DEVIATION INCOMPLETE RIGHT BUNDLE BRANCH BLOCK MINIMAL VOLTAGE CRITERIA FOR LVH, MAY BE NORMAL VARIANT ABNORMAL ECG WHEN COMPARED WITH ECG OF 26-MAY-2016 01:52, [place] INTERVAL HAS INCREASED VENT. RATE HAS DECREASED BY 29 BPM INCOMPLETE RIGHT BUNDLE BRANCH BLOCK IS NOW PRESENT T WAVE INVERSION NOW EVIDENT IN INFERIOR LEADS Confirmed by LAURE FRANCIS, HEMAL ([id number]) on 09/24/2016 10:42:24 AM Referred By: Confirmed By:HEMAL KELSEY MD
== END 2016-09-19 17:51 | disposition home or self-care (01) ==
LOC: JER 15:22
PROC: 3E033GC Introduction of Other Therapeutic Substance into Peripheral Vein, Percutaneous Approach (ICD-10-PCS; principal; 2016-09-19)
DX: E11.649 Type 2 diabetes mellitus with hypoglycemia without coma (principal); Z79.4 Long term (current) use of insulin; Z79.84 Long term (current) use of oral hypoglycemic drugs; I10 Essential (primary) hypertension; E03.9 Hypothyroidism, unspecified; N40.0 Benign prostatic hyperplasia without lower urinary tract symptoms
CPT/HCPCS: 80053; 83690; 85025; 85610; 93005; 93010; 96374; 99283-25

== ENCOUNTER 2016-12-30 06:06 | Inpatient (IN) | payer BC, OTHER ==
[2016-12-23 10:22] VITALS: BMI 31.0
[2016-12-30] MEDS ORDERED: MIDAZOLAM HCL 2 MG/2 ML SINGLE DOSE VIAL ONE (08:02)
[2016-12-30] MEDS ORDERED: LIDOCAINE HCL/PF 2% SDV 5ML VIAL ONE (08:08)
[2016-12-30] MEDS ORDERED: PROPOFOL 20 ML ONE (08:08)
[2016-12-30] MEDS ORDERED: ROCURONIUM BROMIDE 50 MG/5 ML VIAL ONE (08:09)
[2016-12-30] MEDS ORDERED: SUCCINYLCHOLINE CHLORIDE 200 MG/10 ML VIAL ONE (08:09)
[2016-12-30] MEDS ORDERED: ceFAZolin SODIUM 1 GM VIAL ONE (08:35)
[2016-12-30] MEDS ORDERED: ePHEDrine SULFATE 50 MG/1 ML AMPULE ONE (08:45)
[2016-12-30] MEDS ORDERED: GELATIN, ABSORBABLE 100 EACH SPONGE TP ONE ×2 (08:57→11:19)
[2016-12-30] MEDS ORDERED: THROMBIN (BOVINE) 5,000 UNIT VIAL TP ONE ×2 (08:57→11:18)
[2016-12-30] MEDS ORDERED: NEOSTIGMINE METHYLSULFATE 0.5 MG/ML - 10 ML MDV ONE (11:01)
[2016-12-30] MEDS ORDERED: GLYCOPYRROLATE 0.2 MG/1 ML VIAL ONE (11:02)
[2016-12-30] MEDS ORDERED: BACITRACIN 15 GM TUBE TOPICAL OINTMENT ONE (11:25)
[2016-12-30] MEDS ORDERED: ONDANSETRON 4 MG/2 ML VIAL IVPB PRN (11:42)
[2016-12-30] MEDS ORDERED: oxyCODONE HCL 5 MG TABLET PO PRN (11:42)
--- NOTE | 2016-12-30 12:14 | SURG ---
Surgery Port Traffic Manager Note Port Traffic Manager: Radha Coleman PA-C Date of Service: 12/30/16 Diagnosis: lumbar spinal stenosis Procedure: L3-L5 decompression lumbar laminectomy I was present for the entirety of the operative procedure. For further detail, please refer to operative report. Visit type - Case Type Case Type: Scheduled Admission - Emergency Emergency Visit: No - New patient This patient is new to me today: Yes Date on this admission: 12/30/16
[2016-12-30] MEDS: morphine CARPU-JECT 2 MG/1 ML DISP.SYRIN IVPUSH PRN ×2 (14:00→17:57)
[2016-12-30] MEDS: INSULIN (NOVOLOG) ASPART 100 UNITS/ML 10ML VIAL SQ SCH ×2 (16:38→21:26)
[2016-12-30] MEDS ORDERED: ceFAZolin 2 GRAM PREMIX BAG IVPB SCH (17:45)
[2016-12-30] MEDS: LACTATED RINGERS SOLUTION 1,000 ML IV SCH (17:57)
[2016-12-30] MEDS: ceFAZolin 2 GRAM PREMIX BAG IVPB SCH (17:58)
[2016-12-30] MEDS ORDERED: PT OWN MED DRAWER 7, Y5N ONE (21:08)
[2016-12-30] MEDS: LABETALOL HCL 100 MG TABLET (FP) PO SCH (21:24)
[2016-12-30] MEDS: oxyCODONE HCL 5 MG TABLET PO PRN (21:24)
[2016-12-30] MEDS: TERAZOSIN HCL 1 MG CAPSULE PO SCH (21:24)
[2016-12-30] MEDS: PREGABALIN 25 MG CAPSULE PO SCH (21:24)
[2016-12-30] MEDS ORDERED: TERAZOSIN HCL 2 MG CAPSULE PO SCH (22:00)
[2016-12-30] MEDS ORDERED: PREGABALIN 75 MG CAPSULE PO SCH (22:00)
[2016-12-31] MEDS: ceFAZolin 2 GRAM PREMIX BAG IVPB SCH (01:33)
[2016-12-31] MEDS: INSULIN (NOVOLOG) ASPART 100 UNITS/ML 10ML VIAL SQ SCH ×4 (06:44→22:08)
[2016-12-31] MEDS ORDERED: INSULIN (NOVOLOG) ASPART 100 UNITS/ML 10ML VIAL ONE ×3 (06:45→16:53)
[2016-12-31] MEDS: LEVOTHYROXINE NA 50 MCG TABLET (FP) PO SCH (06:47)
[2016-12-31] MEDS ORDERED: PT OWN MED DRAWER 7, Y5N ONE ×3 (07:52→19:58)
[2016-12-31] MEDS: oxyCODONE HCL 5 MG TABLET PO PRN (07:57)
[2016-12-31] MEDS: TERAZOSIN HCL 1 MG CAPSULE PO SCH ×3 (07:58→20:00)
[2016-12-31] MEDS: LABETALOL HCL 100 MG TABLET (FP) PO SCH ×3 (07:58→20:00)
[2016-12-31] MEDS: NIFEdipine E.R. 30 MG TABLET (FP) PO SCH (08:06)
[2016-12-31] MEDS: VALSARTAN 160 MG TABLET (UD) PO SCH (08:06)
[2016-12-31 08:30] LABS: ANION GAP 7 (8-16); CALCIUM 8.1 mg/dl (8.4-10.2); CO2 28 mmol/L (22-28); CREATININE 2.2 mg/dl (0.6-1.3); GLUCOSE,RANDOM 250 mg/dl (74-106)
[2016-12-31 09:11] LABS: MCH 29.9 pg (25.7-33.7); MCHC 33.4 g/dl (32.0-35.9); MEAN CELL VOLUME 89.7 fl (80-96); MEAN PLT VOLUME 9.2 fl (7.5-11.1); PLATELET COUNT 146 K/MM3 (134-434); RDW 14.1 % (11.9-15.9); WHITE BLOOD COUNT 7.6 K/mm3 (4.0-10.0)
[2016-12-31] MEDS: ASPIRIN 81 MG CHEWABLE TABLETS PO SCH (09:23)
[2016-12-31] MEDS: FUROSEMIDE 40 MG TABLET (FP) PO SCH (09:23)
[2016-12-31] MEDS: FINASTERIDE 5 MG TABLET (FP) PO SCH (09:23)
[2016-12-31] MEDS ORDERED: PATIENT'S OWN MEDICATION (NON-FORMULARY) (Telmisartan [Micardis] 80 MG) PO SCH (10:00)
[2016-12-31] MEDS ORDERED: VALSARTAN 160 MG TABLET (UD) PO SCH (10:00)
[2016-12-31] MEDS ORDERED: NIFEdipine E.R. 30 MG TABLET (FP) PO SCH (10:00)
--- NOTE | 2016-12-31 10:41 | PN ---
Progress Note, Physician Chief Complaint: s/p lumber laminectomy post op day one. History of Present Illness: under general anesthesia - Current Medication List Current Medications: Active Medications Aspirin (Asa -) 81 mg PO DAILY [facility] Last Admin: 12/31/16 09:23 Dose: 81 mg Finasteride (Proscar -) 5 mg PO DAILY [facility] Last Admin: 12/31/16 09:23 Dose: 5 mg Furosemide (Lasix -) 80 mg PO DAILY [facility] Last Admin: 12/31/16 09:23 Dose: 80 mg Lactated Ringer's (Lactated Ringers Solution) 1,000 mls @ 75 mls/hr IV ASDIR [facility] Last Admin: 12/30/16 17:57 Dose: 75 mls/hr Insulin Aspart (Novolog Vial) 0 units SQ [facility] PRN Reason: Protocol Last Admin: 12/31/16 06:44 Dose: 6 units Insulin Detemir (Levemir Vial) 70 units SQ [facility] Labetalol HCl (Normodyne -) 300 mg PO BID@0800,1999 [facility] Last Admin: 12/31/16 08:07 Dose: Not Given Levothyroxine Sodium (Synthroid -) 50 mcg PO DAILY@0700 [facility] Last Admin: 12/31/16 06:47 Dose: 50 mcg Morphine Sulfate (Morphine Injection -) 2 mg IVPUSH Q3H PRN PRN Reason: SEVERE PAIN Last Admin: 12/30/16 17:57 Dose: 2 mg Nifedipine (Procardia Xl -) 30 mg PO DAILY@0800 [facility] Last Admin: 12/31/16 08:06 Dose: 30 mg Oxycodone HCl (Roxicodone -) 10 mg PO Q4H PRN PRN Reason: PAIN Last Admin: 12/31/16 07:57 Dose: 10 mg Oxycodone HCl (Roxicodone -) 5 mg PO Q4H PRN PRN Reason: PAIN Pregabalin (Lyrica -) 75 mg PO [facility] Last Admin: 12/30/16 21:24 Dose: 75 mg Terazosin HCl (Hytrin -) 2 mg PO BID@0800,1999 [facility] Last Admin: 12/31/16 08:07 Dose: Not Given Valsartan (Diovan -) 320 mg PO DAILY@0800 [facility] Last Admin: 12/31/16 08:06 Dose: 320 mg - Objective Vital Signs: Vital Signs Temperature 98.5 F 12/31/16 06:00 Pulse Rate 84 12/31/16 06:00 Respiratory Rate 22 12/31/16 06:00 Blood Pressure 173/76 12/31/16 06:00 O2 Sat by Pulse Oximetry (%) 96 12/31/16 01:14 Constitutional: Yes: Well Nourished Cardiovascular: Yes: WNL Respiratory: Yes: WNL Gastrointestinal: Yes: WNL Neurological: Yes: WNL Labs: CBC, BMP 12/31/16 07:00 12/31/16 07:00 Assessment/Plan post op day one, no complaints from anesthetic except scratchy throat. No nausea or vomiting, pain controlled, dept of anesthesia will sign off care at this time.
--- NOTE | 2016-12-31 11:41 | PN ---
Progress Note (short form) - Note Progress Note: no complaints, no headache Afeb NILSA
--- NOTE | 2016-12-31 11:46 | OP ---
DATE OF OPERATION: 12/30/2016 PREOPERATIVE DIAGNOSIS: 1. Lumbar spinal stenosis. 2. Neurogenic claudication. POSTOPERATIVE DIAGNOSIS: 1. Lumbar spinal stenosis. 2. Neurogenic claudication. PROCEDURE PERFORMED: Two-level lumbar decompressive laminectomy at L3-L4 and L4 -L5. SURGEON: Edson Tatum MD ANESTHESIA: General. PRODUCTION MAINTENANCE TECHNICIAN: SERVANDO Marroquin INDICATIONS: Patient is an 81-year-old male with prolonged history of spinal stenosis, severe lower extremity radicular pain and difficulty ambulating more than short distances. Even after a total hip replacement, he continued with significant discomfort in the thighs and minimal ambulatory capacity. He has failed nonoperative treatment and has been symptomatic greater than a year. He is indicated for operative decompression. Risks, benefits, and alternatives of the surgery were discussed in detail with the patient and family, and informed consent was obtained. DESCRIPTION OF PROCEDURE: The patient was brought into the operating room via stretcher, and general endotracheal anesthesia was administered by the anesthesiologist. The patient was then flipped into the prone position onto padded Claude frame. All bony prominences were padded, and the back was then prepped and draped in the usual sterile fashion. A fluoroscopic C-arm was placed to allow for intraoperative lateral fluoroscopic radiographs. A time-out was performed after appropriate prophylactic IV antibiotics were administered. A midline incision was then made at the appropriate level, and dissection was carried down to the level of the fascia. The fascia was then split with electrocautery , and subperiosteal dissection was carried down exposing the L4 and L3 lamina. A deep retractor was then placed. A complete decompressive laminectomy at L4-L5 level was performed with a complete L4 laminectomy. A subtotal L3 laminectomy was performed. The decompression was carried down to the pedicles bilaterally with medial facetectomy and foraminotomy. Excellent decompression of the dura was achieved. At the L3-L4 level, there was noted to be an area of weakness of the dural wall with a 1mm bleb with outpouching of neural tissue. No active CSF leakage was noted. A brandon was then placed over this area for the remainder of the decompression. Once the laminectomy was finished, I lifted the brandon, and no active CSF leak was noted. This area was approximated 1 mm in length. I decided to place Tisseal over this defect. After Tisseal was placed, two Valsalva maneuvers were held and the area showed no CSF leak. The wounds were then copiously irrigated. The deep fascia was closed with No. 1 Vicryl suture in interrupted fashion. A NILSA drain was placed in the subcutaneous tissues and deep dermal tissues were approximated with 2-0 Vicryl suture. The skin was closed with a running 2-0 nylon suture along with vertical mattress 0 Prolene sutures to eliminate subcutaneous space. The NILSA suction was engaged, and no active bleeding or CSF leakage was noted from the drain. Sterile dressing was applied. The patient was then flipped into the supine position having tolerated the procedure well. Radha Coleman was necessary throughout the case to properly assist in the retraction of the other elements and decompression of the spine. This could not have been done without a skilled commercial loan assistant. I did discuss the dural bleb issue with the family postoperatively and what to expect. My plan is to keep him on flat bedrest for 24 hours and monitor closely the drainage as well as the wound. Vicky [id number] MTDD
[2016-12-31] MEDS: LACTATED RINGERS SOLUTION 1,000 ML IV SCH (11:48)
[2016-12-31] MEDS: ACETAMINOPHEN 500 MG TABLET (FP) PO PRN ×2 (11:49→18:17)
--- NOTE | 2016-12-31 11:56 | CONSULT ---
Consultation: REQUESTING PROVIDER: Dr Tatum CONSULT REQUEST: We have been asked to medically evaluate this patient for hypertension HISTORY OF PRESENT ILLNESS: Patient is a 81 y/o male with a past medical history of spinal stenosis, CAD, HTN, NIDDM, diastolic congestive heart failure , CRISTINA (no home bipap), chronic renal failure. Patient is s/p lumbar laminectomy L3-L5 decompression, POD #1, Dr Tatum, general anesthesia. patient was noted to be hypertensive postoperatively. REVIEW OF SYSTEMS: CONSTITUTIONAL: Absent: fever, chills, diaphoresis, generalized weakness, malaise, loss of appetite, weight change HEENT: Absent: rhinorrhea, nasal congestion, throat pain, throat swelling, difficulty swallowing, mouth swelling, ear pain, eye pain, visual changes CARDIOVASCULAR: Absent: chest pain, syncope, palpitations, irregular heart rate, lightheadedness , peripheral edema RESPIRATORY: Absent: cough, shortness of breath, dyspnea with exertion, orthopnea, wheezing, stridor, hemoptysis GASTROINTESTINAL: Absent: abdominal pain, abdominal distension, nausea, vomiting, diarrhea, constipation, melena, hematochezia GENITOURINARY: Absent: dysuria, frequency, urgency, hesitancy, hematuria, flank pain, genital pain MUSCULOSKELETAL: Present: back pain Absent: myalgia, arthralgia, joint swelling, neck pain SKIN: Absent: rash, itching, pallor HEMATOLOGIC/IMMUNOLOGIC: Absent: easy bleeding, easy bruising, lymphadenopathy, frequent infections ENDOCRINE: Absent: unexplained weight gain, unexplained weight loss, heat intolerance, cold intolerance NEUROLOGIC: Absent: headache, focal weakness or paresthesias, dizziness, unsteady gait, seizure, mental status changes, bladder or bowel incontinence PSYCHIATRIC: Absent: anxiety, depression, suicidal or homicidal ideation, hallucinations. PHYSICAL EXAMINATION Vital Signs - 24 hr 12/30/16 12/30/16 12/30/16 11:55 12:00 12:15 Temperature Pulse Rate 57 L 55 L 53 L Respiratory 14 15 16 Rate Blood Pressure 146/59 140/58 151/62 O2 Sat by Pulse 100 100 100 Oximetry (%) 12/30/16 12/30/16 12/30/16 12:30 12:45 12:57 Temperature 97.9 F Pulse Rate 54 L 58 L 58 L Respiratory 15 14 14 Rate Blood Pressure 154/86 149/62 149/62 O2 Sat by Pulse 100 100 Oximetry (%) 12/30/16 12/30/16 12/30/16 13:20 19:38 21:28 Temperature 97.6 F 98.5 F Pulse Rate 58 L 79 Respiratory 16 16 20 Rate Blood Pressure 154/84 172/78 O2 Sat by Pulse 99 100 Oximetry (%) 12/31/16 12/31/16 12/31/16 01:00 01:14 02:44 Temperature 98.9 F Pulse Rate 86 76 Respiratory 18 Rate Blood Pressure 191/80 170/72 O2 Sat by Pulse 96 Oximetry (%) 12/31/16 12/31/16 06:00 09:30 Temperature 98.5 F 98.5 F Pulse Rate 84 84 Respiratory 22 22 Rate Blood Pressure 173/76 170/70 O2 Sat by Pulse Oximetry (%) GENERAL: Awake, alert, and fully oriented, anxious. HEAD: Normal with no signs of trauma. EYES: Pupils equal, round and reactive to light, extraocular movements intact, sclera anicteric, conjunctiva clear. No lid lag. EARS, NOSE, THROAT: Ears normal, nares patent, oropharynx clear without exudates. Moist mucous membranes. NECK: Normal range of motion, supple without lymphadenopathy, JVD, or masses. LUNGS: Breath sounds equal, clear to auscultation bilaterally. No wheezes, and no crackles. No accessory muscle use. HEART: Regular rate and rhythm, normal S1 and S2 without murmur, rub or gallop. ABDOMEN: Soft, nontender, not distended, normoactive bowel sounds, no guarding, no rebound, no masses. No hepatomegaly or splenomegaly. MUSCULOSKELETAL: Normal range of motion at all joints. No bony deformities or tenderness. No CVA tenderness. UPPER EXTREMITIES: 2+ pulses, warm, well-perfused. No cyanosis. No clubbing. Cap refill <2 seconds. No peripheral edema. LOWER EXTREMITIES: 2+ pulses, warm, well-perfused. No calf tenderness. No peripheral edema. NEUROLOGICAL: Cranial nerves II-XII intact. Normal speech. Normal gait. PSYCHIATRIC: Cooperative. Good eye contact. Appropriate mood and affect. SKIN: Warm, dry, normal turgor, no rashes or lesions noted. Laboratory Results - last 24 hr 12/30/16 12/30/16 12/30/16 11:51 16:36 20:43 WBC RBC Hgb Hct MCV MCH MCHC RDW Plt Count MPV Sodium Potassium Chloride Carbon Dioxide Anion Gap BUN Creatinine POC Glucometer 161 133 133 Random Glucose Calcium 12/31/16 12/31/16 12/31/16 06:12 07:00 07:00 WBC 7.6 D RBC 3.44 L D Hgb 10.3 L D Hct 30.8 L D MCV 89.7 MCH 29.9 MCHC 33.4 RDW 14.1 D Plt Count 146 MPV 9.2 Sodium 136 Potassium 3.7 Chloride 101 Carbon Dioxide 28 Anion Gap 7 L BUN 37 H D Creatinine 2.2 H POC Glucometer 285 Random Glucose 250 H D Calcium 8.1 L Active Medications Generic Name Dose Route Start Last Admin Trade Name Freq PRN Reason Stop Dose Admin Acetaminophen 500 mg 12/31/16 11:38 12/31/16 11:49 Tylenol - PO 500 mg Q6H PRN Administration FEVER OR PAIN Aspirin 81 mg 12/31/16 10:00 12/31/16 09:23 Asa - PO 81 mg DAILY [facility] Administration Finasteride 5 mg 12/31/16 10:00 12/31/16 09:23 Proscar - PO 5 mg DAILY [facility] Administration Furosemide 80 mg 12/31/16 10:00 12/31/16 09:23 Lasix - PO 80 mg DAILY [facility] Administration Insulin Aspart 0 units 12/30/16 16:30 12/31/16 06:44 Novolog Vial SQ 6 units [facility] Administration Protocol Insulin Detemir 70 units 12/31/16 22:00 Levemir Vial SQ [facility] Labetalol HCl 300 mg 12/31/16 08:00 12/31/16 08:07 Normodyne - PO Not Given BID@08,1999 [facility] Levothyroxine Sodium 50 mcg 12/31/16 07:00 12/31/16 06:47 Synthroid - PO 50 mcg DAILY@0700 [facility] Administration Morphine Sulfate 2 mg 12/30/16 11:42 12/30/16 17:57 Morphine Injection - IVPUSH 2 mg Q3H PRN Administration SEVERE PAIN Nifedipine 30 mg 12/31/16 08:00 12/31/16 08:06 Procardia Xl - PO 30 mg DAILY@0800 [facility] Administration Oxycodone HCl 10 mg 12/30/16 11:42 12/31/16 07:57 Roxicodone - PO 10 mg Q4H PRN Administration PAIN Oxycodone HCl 5 mg 12/30/16 11:42 Roxicodone - PO Q4H PRN PAIN Pregabalin 75 mg 12/30/16 22:00 12/30/16 21:24 Lyrica - PO 75 mg HS [facility] Administration Terazosin HCl 2 mg 12/31/16 08:00 12/31/16 08:07 Hytrin - PO Not Given BID@0800,2000 [facility] Valsartan 320 mg 12/31/16 08:00 12/31/16 08:06 Diovan - PO 320 mg DAILY@0800 [facility] Administration ASSESSMENT/PLAN: 1) MS: POD #1, s/p lumbar laminectomy, (Dr Tatum) - continue prn pain medication, patient reports pain to the incision site, patient denies any headaches - incentive spirometer 2) card hypertension - continue diovan, procardia, labetolol - b/p 209/96 after all medication was given at 0800, labetol 10mg IV x 1 ordered , strict b/p monitoring q4h diastolic congestive heart failure - pt appears euvolomic on exam - echo 05/26/16, ef 45-50%, grade II diastolic dysfunction 3) neph chronic renal failure - creatine 2.2 baseline 1.6 - close monitoring 4) endo niddm - hemoglobin a1c 7.0 - continue levermir and insulin sliding scale, achs f/e/n - diabetic, low sodium diet - replete lytes prn ppx - pt as per ortho - scd/milton - incentive spirometer Dispo: We will continue to follow the patient. Thank you for this consultative opportunity. Visit type - Emergency Visit Emergency Visit: No - New Patient This patient is new to me today: Yes Date on this admission: 12/31/16 - Critical Care Critical Care patient: No
[2016-12-31] MEDS: LABETALOL HCL 5 MG/1 ML (100MG/20 ML VIAL) IVPUSH ONE ×2 (12:24→18:25)
[2016-12-31] MEDS ORDERED: LABETALOL HCL 5 MG/1 ML (100MG/20 ML VIAL) IVPUSH ONE (18:25)
[2016-12-31] MEDS: PREGABALIN 25 MG CAPSULE PO SCH (21:24)
[2016-12-31] MEDS: INSULIN DETEMIR 100 UNITS/ML MDV SQ SCH (21:24)
[2017-01-01] MEDS: LEVOTHYROXINE NA 50 MCG TABLET (FP) PO SCH (06:16)
[2017-01-01] MEDS ORDERED: INSULIN (NOVOLOG) ASPART 100 UNITS/ML 10ML VIAL ONE ×3 (06:51→16:22)
[2017-01-01] MEDS: INSULIN (NOVOLOG) ASPART 100 UNITS/ML 10ML VIAL SQ SCH ×4 (06:52→21:14)
[2017-01-01] MEDS ORDERED: PT OWN MED DRAWER 7, Y5N ONE ×2 (08:25→19:34)
[2017-01-01] MEDS: LABETALOL HCL 100 MG TABLET (FP) PO SCH ×2 (08:41→19:41)
[2017-01-01] MEDS: NIFEdipine E.R. 30 MG TABLET (FP) PO SCH (08:41)
[2017-01-01] MEDS: TERAZOSIN HCL 1 MG CAPSULE PO SCH ×2 (08:43→19:41)
[2017-01-01] MEDS: VALSARTAN 160 MG TABLET (UD) PO SCH (08:43)
[2017-01-01] MEDS: FUROSEMIDE 40 MG TABLET (FP) PO SCH (09:20)
[2017-01-01] MEDS: ASPIRIN 81 MG CHEWABLE TABLETS PO SCH (09:20)
[2017-01-01] MEDS: FINASTERIDE 5 MG TABLET (FP) PO SCH (09:20)
--- NOTE | 2017-01-01 09:28 | PN ---
Progress Note (short form) - Note Progress Note: no complaints, wants to get up no headaches, even with sitting up in bed drain 20cc last shift - serosanguinous - pulled wound c/d/i NVID POD #2 -OOB/PT -EVAN Munguia to check wound later today -possible d/c today versus tomorrow with home PT depending on clinical course today.
--- NOTE | 2017-01-01 10:23 | PN ---
Physical Exam: SUBJECTIVE: Patient seen and examined, reports intermittent pain to surgical site, denies any chest pain or shortness of breath. OBJECTIVE: Patient is a 81 y/o male with a past medical history of spinal stenosis, CAD, HTN, NIDDM, diastolic congestive heart failure, CRISTINA (no home bipap), chronic renal failure. Patient is s/p lumbar laminectomy L3-L5 decompression, POD #2, Dr Tatum, general anesthesia. Vital Signs Period Temp Pulse Resp BP Sys/Eisenberg Pulse Ox Last 24 Hr 98.5 F-99.2 F 65-84 18-22 144-201/61-80 94-97 GENERAL: The patient is awake, alert, and fully oriented, in no acute distress. HEAD: Normal with no signs of trauma. EYES: PERRL, extraocular movements intact, sclera anicteric, conjunctiva clear. No ptosis. ENT: Ears normal, nares patent, oropharynx clear without exudates, moist mucous membranes. NECK: Trachea midline, full range of motion, supple. LUNGS: Breath sounds equal, clear to auscultation bilaterally, no wheezes, no crackles, no accessory muscle use. HEART: Regular rate and rhythm, S1, S2 without murmur, rub or gallop. ABDOMEN: Soft, nontender, nondistended, normoactive bowel sounds, no guarding, no rebound, no hepatosplenomegaly, no masses. EXTREMITIES: 2+ pulses, warm, well-perfused, no edema. LUMBAR SPINE: NILSA removed by Dr Tatum, suture intact, wound well approximated, no drainage noted NEUROLOGICAL: Cranial nerves II through XII grossly intact. Normal speech, gait not observed. PSYCH: Normal mood, normal affect. SKIN: Warm, dry, normal turgor, no rashes or lesions noted Laboratory Results - last 24 hr 12/31/16 12/31/16 12/31/16 11:53 16:51 21:04 POC Glucometer 209 217 197 01/01/17 06:10 POC Glucometer 161 Active Medications Generic Name Dose Route Start Last Admin Trade Name Freq PRN Reason Stop Dose Admin Acetaminophen 500 mg 12/31/16 11:38 12/31/16 18:17 Tylenol - PO 500 mg Q6H PRN Administration FEVER OR PAIN Aspirin 81 mg 12/31/16 10:00 01/01/17 09:20 Asa - PO 81 mg DAILY [facility] Administration Finasteride 5 mg 12/31/16 10:00 01/01/17 09:20 Proscar - PO 5 mg DAILY [facility] Administration Furosemide 80 mg 12/31/16 10:00 01/01/17 09:20 Lasix - PO 80 mg DAILY [facility] Administration Insulin Aspart 0 units 12/30/16 16:30 01/01/17 06:52 Novolog Vial SQ 2 units ACHS [facility] Administration Protocol Insulin Detemir 70 units 12/31/16 22:00 12/31/16 21:24 Levemir Vial SQ 70 units HS [facility] Administration Labetalol HCl 300 mg 12/31/16 08:00 01/01/17 08:41 Normodyne - PO 300 mg BID@ [facility] Administration Levothyroxine Sodium 50 mcg 12/31/16 07:00 01/01/17 06:16 Synthroid - PO 50 mcg DAILY@0700 [facility] Administration Morphine Sulfate 2 mg 12/30/16 11:42 12/30/16 17:57 Morphine Injection - IVPUSH 2 mg Q3H PRN Administration SEVERE PAIN Nifedipine 30 mg 12/31/16 08:00 01/01/17 08:41 Procardia Xl - PO 30 mg DAILY@0800 [facility] Administration Oxycodone HCl 10 mg 12/30/16 11:42 12/31/16 07:57 Roxicodone - PO 10 mg Q4H PRN Administration PAIN Oxycodone HCl 5 mg 12/30/16 11:42 Roxicodone - PO Q4H PRN PAIN Pregabalin 75 mg 12/30/16 22:00 12/31/16 21:24 Lyrica - PO 75 mg HS [facility] Administration Terazosin HCl 2 mg 12/31/16 08:00 01/01/17 08:43 Hytrin - PO 2 mg BID@ [facility] Administration Valsartan 320 mg 12/31/16 08:00 01/01/17 08:43 Diovan - PO 320 mg DAILY@0800 [facility] Administration ASSESSMENT/PLAN: 1) MS: POD #, s/p lumbar laminectomy, (Dr Tatum) - continue prn pain medication, patient reports pain to the incision site. - ambulated patient hallway, patient denies any headaches - incentive spirometer 2) card hypertension - continue diovan, procardia, labetolol - b/p much improved at goal, strict monitoring diastolic congestive heart failure - pt appears euvolomic on exam - echo 05/26/16, ef 45-50%, grade II diastolic dysfunction 3) neph chronic renal failure - creatine 2.2 baseline 1.6 - close monitoring 4) endo niddm - hemoglobin a1c 7.0 - continue levermir and insulin sliding scale, achs f/e/n - diabetic, low sodium diet - replete lytes prn ppx - pt as per ortho - scd/milton - incentive spirometer Dispo: We will continue to follow the patient. Thank you for this consultative opportunity. Visit type - Emergency Visit Emergency Visit: Yes ED Registration Date: 12/31/16 Care time: The patient presented to the Emergency Department on the above date and was hospitalized for further evaluation of their emergent condition. - New Patient This patient is new to me today: No - Critical Care Critical Care patient: No - Discharge Referral Referred to [facility] Med P.C.: No
[2017-01-01] MEDS: ACETAMINOPHEN 500 MG TABLET (FP) PO PRN (19:41)
[2017-01-01] MEDS: INSULIN DETEMIR 100 UNITS/ML MDV SQ SCH (21:10)
[2017-01-01] MEDS: PREGABALIN 25 MG CAPSULE PO SCH (21:10)
[2017-01-02] MEDS: INSULIN (NOVOLOG) ASPART 100 UNITS/ML 10ML VIAL SQ SCH ×5 (06:33→21:41)
[2017-01-02] MEDS: LEVOTHYROXINE NA 50 MCG TABLET (FP) PO SCH (06:34)
[2017-01-02] MEDS ORDERED: PT OWN MED DRAWER 7, Y5N ONE ×2 (08:36→20:09)
[2017-01-02] MEDS: LABETALOL HCL 100 MG TABLET (FP) PO SCH ×2 (08:41→20:12)
[2017-01-02] MEDS: VALSARTAN 160 MG TABLET (UD) PO SCH (08:41)
[2017-01-02] MEDS: NIFEdipine E.R. 30 MG TABLET (FP) PO SCH (08:42)
[2017-01-02] MEDS: TERAZOSIN HCL 1 MG CAPSULE PO SCH ×2 (08:43→20:12)
--- NOTE | 2017-01-02 09:21 | PN ---
Progress Note (short form) - Note Progress Note: Pt reports improved comfort. AF VSS dressing cdi b/l LE calves soft nt 5/5 distal motor sens int to LT A/p s/p laminectomy -stable for dc -home wound care -to follow up as planned
[2017-01-02] MEDS: ASPIRIN 81 MG CHEWABLE TABLETS PO SCH (09:23)
[2017-01-02] MEDS: FUROSEMIDE 40 MG TABLET (FP) PO SCH (09:23)
[2017-01-02] MEDS: FINASTERIDE 5 MG TABLET (FP) PO SCH (09:24)
--- NOTE | 2017-01-02 11:47 | PN ---
Physical Exam: SUBJECTIVE: Patient seen and examined, ambulatory throughout nursing station with walker denies any chest pain or shortness of breath. [id number] patient stood from a standing position and became dizzy, he report he almost passed out, primary RN Tangela was at the bedside and denies any syncopal episode OBJECTIVE:Patient is a 81 y/o male with a past medical history of spinal stenosis, CAD, HTN, NIDDM, diastolic congestive heart failure, CRISTINA (no home bipap), chronic renal failure. Patient is s/p lumbar laminectomy L3-L5 decompression, POD #3, Dr Tatum, general anesthesia. Vital Signs Period Temp Pulse Resp BP Sys/Eisenberg Pulse Ox Last 24 Hr 98.4 F-99.5 F 65-76 18-20 126-160/52-65 95-97 GENERAL: The patient is awake, alert, and fully oriented, in no acute distress. HEAD: Normal with no signs of trauma. EYES: PERRL, extraocular movements intact, sclera anicteric, conjunctiva clear. No ptosis. ENT: Ears normal, nares patent, oropharynx clear without exudates, moist mucous membranes. NECK: Trachea midline, full range of motion, supple. LUNGS: Breath sounds equal, clear to auscultation bilaterally, no wheezes, no crackles, no accessory muscle use. HEART: Regular rate and rhythm, S1, S2 without murmur, rub or gallop. ABDOMEN: Soft, nontender, nondistended, normoactive bowel sounds, no guarding, no rebound, no hepatosplenomegaly, no masses. EXTREMITIES: 2+ pulses, warm, well-perfused, no edema. LUMBAR SPINE: sutures intact, wound well approximated NEUROLOGICAL: Cranial nerves II through XII grossly intact. Normal speech, gait not observed. PSYCH: Normal mood, normal affect. SKIN: Warm, dry, normal turgor, no rashes or lesions noted Laboratory Results - last 24 hr 01/01/17 01/01/17 01/01/17 12:48 16:18 20:52 POC Glucometer 244 179 161 01/02/17 06:07 POC Glucometer 97 Active Medications Generic Name Dose Route Start Last Admin Trade Name Freq PRN Reason Stop Dose Admin Acetaminophen 500 mg 12/31/16 11:38 01/01/17 19:41 Tylenol - PO 500 mg Q6H PRN Administration FEVER OR PAIN Aspirin 81 mg 10/04/17 10:00 01/02/17 09:23 Asa - PO 81 mg DAILY [facility] Administration Finasteride 5 mg 12/31/16 10:00 01/02/17 09:24 Proscar - PO 5 mg DAILY [facility] Administration Furosemide 80 mg 12/31/16 10:00 01/02/17 09:23 Lasix - PO 80 mg DAILY [facility] Administration Insulin Aspart 0 units 12/30/16 16:30 01/02/17 06:33 Novolog Vial SQ Not Given ACHS [facility] Protocol Insulin Detemir 70 units 12/31/16 22:00 01/01/17 21:10 Levemir Vial SQ 70 units HS [facility] Administration Labetalol HCl 300 mg 12/31/16 08:00 01/02/17 08:41 Normodyne - PO 300 mg BID@08 [facility] Administration Levothyroxine Sodium 50 mcg 12/31/16 07:00 01/02/17 06:34 Synthroid - PO 50 mcg DAILY@0700 [facility] Administration Morphine Sulfate 2 mg 12/30/16 11:42 12/30/16 17:57 Morphine Injection - IVPUSH 2 mg Q3H PRN Administration SEVERE PAIN Nifedipine 30 mg 12/31/16 08:00 01/02/17 08:42 Procardia Xl - PO 30 mg DAILY@0800 [facility] Administration Oxycodone HCl 10 mg 12/30/16 11:42 12/31/16 07:57 Roxicodone - PO 10 mg Q4H PRN Administration PAIN Oxycodone HCl 5 mg 12/30/16 11:42 Roxicodone - PO Q4H PRN PAIN Pregabalin 75 mg 12/30/16 22:00 01/01/17 21:10 Lyrica - PO 75 mg HS [facility] Administration Terazosin HCl 2 mg 12/31/16 08:00 01/02/17 08:43 Hytrin - PO 2 mg BID@ [facility] Administration Valsartan 320 mg 12/31/16 08:00 01/02/17 08:41 Diovan - PO 320 mg DAILY@0800 [facility] Administration ASSESSMENT/PLAN: 1) MS: POD #3, s/p lumbar laminectomy, (Dr Tatum) - continue PT as per orthopedist - pain is well controlled, continue prn pain medication - incentive spirometer 2) card postural hypotension - sitting b/p 131/68, laying 133/68, standing 109/66 - recommend decreasing lasix to 40mg daily hypertension - continue diovan, procardia, labetolol diastolic congestive heart failure - pt appears euvolomic on exam - echo 05/26/16, ef 45-50%, grade II diastolic dysfunction 3) neph chronic renal failure - creatine 2.2 baseline 1.6 - close monitoring 4) endo niddm - hemoglobin a1c 7.0 - continue levermir and insulin sliding scale, achs f/e/n - diabetic, low sodium diet - replete lytes prn ppx - pt as per ortho - scd/m[facility] - incentive spirometer Dispo: We will continue to follow the patient. Thank you for this consultative opportunity. Visit type - Emergency Visit Emergency Visit: No - New Patient This patient is new to me today: No - Critical Care Critical Care patient: No - Discharge Referral Referred to [facility] Med P.C.: No
[2017-01-02] MEDS ORDERED: INSULIN (NOVOLOG) ASPART 100 UNITS/ML 10ML VIAL ONE ×2 (11:58→16:44)
[2017-01-02] MEDS: INSULIN DETEMIR 100 UNITS/ML MDV SQ SCH (21:36)
[2017-01-02] MEDS: PREGABALIN 25 MG CAPSULE PO SCH (21:36)
--- NOTE | 2017-01-03 06:54 | ED.PROV ---
Physicial Exam I saw and examined the patient. - Vital Signs Last Vital Signs Temp Pulse Resp BP Pulse Ox 99.0 F 77 19 148/68 95 01/03/17 00:00 01/03/17 00:00 01/03/17 00:00 01/03/17 00:00 01/03/17 00:17 - Physical Exam Reason for Response: 01/03/17 06:48 Call to see this patient who had episode of syncope at approximately 6 AM today. Patient recalls having to urinate; he emptied his bladder in bedside container but decided to get out of bed. Patient states that he has "no idea" why he decided to get out of bed. He remembers standing and using his walker for a few steps then feeling very lightheaded and falling backward. Nursing staff heard patient fall and was immediately at his side. Loss of consciousness was momentary. Patient states that he has pain in "the area where I hit my head" but no other pain/lightheadedness/vertigo/nausea. He denies shortness of breath/chest pain/abdominal pain. No other torso or extremity complaints. Physical exam: Blood pressure 149/65 standing, heart rate 81; 157/66 seated, heart rate 81 HEAD: No scalp/cranial tenderness; no Tapia's; Normal with no signs of trauma. EYES: PERRLA, EOMI, sclera anicteric, conjunctiva clear. ENT: Ears normal, nares patent, oropharynx clear without exudates. Dry mucous membranes. NECK: Normal range of motion, supple without lymphadenopathy, JVD, or masses. LUNGS: Breath sounds equal, clear to auscultation bilaterally. No wheezes, and no crackles. HEART:Regular rate and rhythm, normal S1 and S2 without murmur, rub or gallop. ABDOMEN:.normal bowel sounds No guarding,tenderness or rebound.No masses No distention. EXTREMITIES: Normal range of motion, no edema. No clubbing or cyanosis. No erythema, or tenderness. NEUROLOGICAL: Cranial nerves II through XII grossly intact. Normal speech. No focal neurological deficits. MUSCULOSKELETAL: Back non-tender to palpation, operative site : Dressing intact without bleeding or tenderness SKIN: Warm, Dry, normal turgor, 12-lead electrocardiogram showed normal sinus rhythm at 71 bpm; no significant change from EKG dated 12/22/16 Critical Care Time/MDM Note - Medical Decision Making Note: 01/03/17 06:56 81-year-old man 4 days s/p lumbar laminectomy had brief syncopal episode after standing up and walking a few steps at the side of his bed. Patient is alert and oriented with minor pain in the back of his head(point of impact of fall). Exam shows no focal deficits or evidence of acute injury. He had mild orthostatic changes on his standing blood pressure reading. 12-lead EKG is unchanged from preoperative tracing Noncontrast head CT/lumbosacral x-rays ordered CBC/chemistry profile/cardiac enzymes drawn. Orthopedic service/[facility] hospitalist service contacted by nursing staff.
[2017-01-03 07:01] LABS: BASOPHIL 0.6 % (0-2.0); EOSINOPHIL 6.8 % (0-4.5); MCH 29.6 pg (25.7-33.7); MCHC 33.3 g/dl (32.0-35.9); MEAN CELL VOLUME 88.7 fl (80-96); MEAN PLT VOLUME 9.2 fl (7.5-11.1); NEUTROPHILS 64.5 % (42.8-82.8); PLATELET COUNT 178 K/MM3 (134-434); RDW 13.8 % (11.9-15.9); WHITE BLOOD COUNT 6.8 K/mm3 (4.0-10.0)
[2017-01-03] MEDS: INSULIN (NOVOLOG) ASPART 100 UNITS/ML 10ML VIAL SQ SCH ×4 (07:01→21:53)
[2017-01-03] MEDS: LEVOTHYROXINE NA 50 MCG TABLET (FP) PO SCH (07:01)
[2017-01-03 07:14] LABS: INR 1.1 (0.82-1.09); PROTHROMBIN TIME (PATIENT) 12.1 SEC (9.98-11.88)
[2017-01-03 07:31] LABS: ALBUMIN 3.1 g/dl (3.4-5.0); ANION GAP 10 (8-16); CALCIUM 8.7 mg/dL (8.5-10.1); CO2 28 mmol/L (21-32); GLUCOSE,RANDOM 179 mg/dL (74-106)
[2017-01-03] MEDS: LABETALOL HCL 100 MG TABLET (FP) PO SCH ×2 (08:28→20:53)
[2017-01-03] MEDS: VALSARTAN 160 MG TABLET (UD) PO SCH (08:28)
[2017-01-03] MEDS: NIFEdipine E.R. 30 MG TABLET (FP) PO SCH (08:29)
[2017-01-03 08:39] LABS: ALK PHOS 48 U/L (45-117); BILIRUBIN,TOTAL 0.6 mg/dL (0.2-1.0); CPK 521 IU/L (39-308); CREATININE 2.1 mg/dL (0.7-1.3); SGOT/AST 21 U/L (15-37); SGPT/ALT 21 U/L (12-78); TOT PROT 6.2 g/dl (6.4-8.2); TROPONIN I 0.04 ng/ml (0.00-0.05)
--- NOTE | 2017-01-03 09:10 | PN ---
Progress Note (short form) - Note Progress Note: patient fell early this morning. He states he was trying to walk on his own and "passed out". feels better now. He is awake, alert and oriented x3 Afeb H/H: 10.7/32/1 WBC: 6.8 wound c/d/i - minimal serosanginous spotting past 24hrs. NVID, motor full head CT negative for bleed Lumbar Xray - no fx s/p 2 level laminectomy -OOB/PT -venodynes b/l LE -medicine follow up regarding syncopal episodes -rehab when bed available and medically stable
--- NOTE | 2017-01-03 09:43 | PN ---
Physical Exam: SUBJECTIVE: Patient seen and examined. OBJECTIVE: Hospital day #3 for this 81 year old male male with a past medical history of spinal stenosis, CAD, HTN, NIDDM, diastolic congestive heart failure , CRISTINA, and CKD, s/p lumbar laminectomy L3-L5 decompression on 12/30. Patient was prepared for discharge on 01/02, but had near syncopal episode after standing up. He again had a brief ?syncopal episode this morning after standing up. He was evaluated by the ED physician and a head CT was ordered as the fall was unwitnessed -- this showed no acute intracranial pathology. BGM was 194, cardiac profile was drawn: CK 521, troponin 0.04, EKG was unchanged, LS spine xray unchanged, H/H stable at 10.7/32.1. Vital Signs Period Temp Pulse Resp BP Sys/Eisenberg Pulse Ox Last 24 Hr 98.2 F-99.1 F 71-123 18-20 109-154/63-69 95-97 GENERAL: The patient is awake, alert, and fully oriented, in no acute distress. HEAD: Normal with no signs of trauma. EYES: PERRL, extraocular movements intact, sclera anicteric, conjunctiva clear. No ptosis. ENT: Ears normal, nares patent, oropharynx clear without exudates, moist mucous membranes. NECK: Trachea midline, full range of motion, supple. LUNGS: Breath sounds equal, clear to auscultation bilaterally, no wheezes, no crackles, no accessory muscle use. HEART: Regular rate and rhythm, S1, S2 without murmur, rub or gallop. ABDOMEN: Soft, nontender, nondistended, normoactive bowel sounds, no guarding, no rebound, no hepatosplenomegaly, no masses. EXTREMITIES: 2+ pulses, warm, well-perfused, Trace LE edema bilaterally. NEUROLOGICAL: Cranial nerves II through XII grossly intact. Normal speech. 5/5 upper and lower extremity strength bilaterally. PSYCH: Normal mood, normal affect. SKIN: Lumbar dressing clean, dry, intact. Laboratory Results - last 24 hr 01/02/17 01/02/17 01/02/17 11:33 16:34 21:35 WBC RBC Hgb Hct MCV MCH MCHC RDW Plt Count MPV Neutrophils % Lymphocytes % Monocytes % Eosinophils % Basophils % PT with INR INR Sodium Potassium Chloride Carbon Dioxide Anion Gap BUN Creatinine Creat Clearance w eGFR POC Glucometer 169 229 212 Random Glucose Calcium Total Bilirubin AST ALT Alkaline Phosphatase Creatine Kinase Creatine Kinase Index CK-MB (CK-2) Troponin I Total Protein Albumin 01/03/17 01/03/17 01/03/17 06:00 06:00 06:00 WBC 6.8 RBC 3.62 L Hgb 10.7 L Hct 32.1 L MCV 88.7 MCH 29.6 MCHC 33.3 RDW 13.8 Plt Count 178 D MPV 9.2 Neutrophils % 64.5 D Lymphocytes % 18.8 D Monocytes % 9.3 Eosinophils % 6.8 H Basophils % 0.6 PT with INR 12.10 H INR 1.10 Sodium 137 Potassium 3.8 Chloride 99 Carbon Dioxide 28 Anion Gap 10 BUN 36 H D Creatinine 2.1 H Creat Clearance w eGFR 30.54 POC Glucometer Random Glucose 179 H D Calcium 8.7 Total Bilirubin 0.6 AST 21 D ALT 21 D Alkaline Phosphatase 48 D Creatine Kinase 521 H Creatine Kinase Index 0.4 CK-MB (CK-2) 2.492 Troponin I 0.04 D Total Protein 6.2 L D Albumin 3.1 L D 01/03/17 01/03/17 06:00 06:33 WBC RBC Hgb Hct MCV MCH MCHC RDW Plt Count MPV Neutrophils % Lymphocytes % Monocytes % Eosinophils % Basophils % PT with INR INR Sodium Potassium Chloride Carbon Dioxide Anion Gap BUN Creatinine Creat Clearance w eGFR POC Glucometer 194 Random Glucose Calcium Total Bilirubin AST ALT Alkaline Phosphatase Creatine Kinase Cancelled Creatine Kinase Index CK-MB (CK-2) Troponin I Cancelled Total Protein Albumin Active Medications Generic Name Dose Route Start Last Admin Trade Name Meggan PRN Reason Stop Dose Admin Acetaminophen 500 mg 12/31/16 11:38 01/01/17 19:41 Tylenol - PO 500 mg Q6H PRN Administration FEVER OR PAIN Aspirin 81 mg 12/31/16 10:00 01/02/17 09:23 Asa - PO 81 mg DAILY DORA Administration Finasteride 5 mg 12/31/16 10:00 01/02/17 09:24 Proscar - PO 5 mg DAILY DORA Administration Furosemide 80 mg 12/31/16 10:00 01/02/17 09:23 Lasix - PO 80 mg DAILY DORA Administration Insulin Aspart 0 units 12/30/16 16:30 01/03/17 07:01 Novolog Vial SQ 2 units ACHS DORA Administration Protocol Insulin Detemir 70 units 12/31/16 22:00 01/02/17 21:36 Levemir Vial SQ 70 units HS DORA Administration Labetalol HCl 300 mg 12/31/16 08:00 01/03/17 08:28 Normodyne - PO 300 mg BID@0800,1999 DORA Administration Levothyroxine Sodium 50 mcg 12/31/16 07:00 01/03/17 07:01 Synthroid - PO 50 mcg DAILY@0700 DORA Administration Morphine Sulfate 2 mg 12/30/16 11:42 12/30/16 17:57 Morphine Injection - IVPUSH 2 mg Q3H PRN Administration SEVERE PAIN Nifedipine 30 mg 12/31/16 08:00 01/03/17 08:29 Procardia Xl - PO 30 mg DAILY@0800 DORA Administration Oxycodone HCl 10 mg 12/30/16 11:42 12/31/16 07:57 Roxicodone - PO 10 mg Q4H PRN Administration PAIN Oxycodone HCl 5 mg 12/30/16 11:42 Roxicodone - PO Q4H PRN PAIN Pregabalin 75 mg 12/30/16 22:00 01/02/17 21:36 Lyrica - PO 75 mg HS DORA Administration Terazosin HCl 2 mg 12/31/16 08:00 01/02/17 20:12 Hytrin - PO 2 mg BID@0800,1999 [facility] Administration Valsartan 320 mg 12/31/16 08:00 01/03/17 08:28 Diovan - PO 320 mg DAILY@0800 DORA Administration Imaging: Head CT 01/03: No acute intracranial process LS spine xray 01/03: No change Previous: Echo 05/26/16, ef 45-50%, grade II diastolic dysfunction ASSESSMENT/PLAN: 81 year old male POD #3 s/p laminectomy with multiple syncopal/ near syncopal episodes. 1. MS: POD #3, s/p lumbar laminectomy with Dr. Tatum - Has not required pain medication - Encouraged incentive spirometer - Awaiting rehab bed placement 2. CARDS: Syncope/near syncope - Not orthostatic today - Workup essentially unremarkable as above - Hold alpha j luis, monitor urine output - Can also consider decreasing Lasix 3. RENAL: CKD - Cr here is 2.1 (2.5 on most recent visit in August) - Monitor, avoid nephrotoxic meds as able 5. ENDO: NIDDM - A1C 7.0 - Continue Levemir and ISS, FSACHS, diabetic diet 6. F/E/N - Diabetic, low sodium diet - PO intake adequate 7. Ppx - SCDs - Incentive spirometer - PT Dispo: We will continue to follow the patient. Thank you for this consultative opportunity. Visit type - Emergency Visit Emergency Visit: Yes ED Registration Date: 12/31/16 Care time: The patient presented to the Emergency Department on the above date and was hospitalized for further evaluation of their emergent condition. - New Patient This patient is new to me today: Yes Date on this admission: 01/04/17 - Critical Care Critical Care patient: No - Discharge Referral Referred to [facility] Med P.C.: No
[2017-01-03] MEDS: ASPIRIN 81 MG CHEWABLE TABLETS PO SCH (09:52)
[2017-01-03] MEDS: FUROSEMIDE 40 MG TABLET (FP) PO SCH (09:54)
[2017-01-03] MEDS: FINASTERIDE 5 MG TABLET (FP) PO SCH (09:56)
[2017-01-03] MEDS: TERAZOSIN HCL 1 MG CAPSULE PO SCH (11:21)
[2017-01-03] MEDS: ACETAMINOPHEN 500 MG TABLET (FP) PO PRN (13:17)
[2017-01-03 13:33] LABS: TROPONIN I (DFP) 0.05 ng/ml (0.03-0.50)
[2017-01-03] MEDS ORDERED: INSULIN DETEMIR 100 UNITS/ML MDV SQ ONE (20:44)
[2017-01-03] MEDS: INSULIN DETEMIR 100 UNITS/ML MDV SQ SCH (21:53)
[2017-01-03] MEDS: PREGABALIN 25 MG CAPSULE PO SCH (21:55)
[2017-01-04] MEDS: LEVOTHYROXINE NA 50 MCG TABLET (FP) PO SCH (06:07)
[2017-01-04] MEDS: INSULIN (NOVOLOG) ASPART 100 UNITS/ML 10ML VIAL SQ SCH ×4 (07:00→21:51)
[2017-01-04] MEDS: VALSARTAN 160 MG TABLET (UD) PO SCH (08:53)
[2017-01-04] MEDS: LABETALOL HCL 100 MG TABLET (FP) PO SCH ×2 (08:54→20:04)
[2017-01-04] MEDS: NIFEdipine E.R. 30 MG TABLET (FP) PO SCH (08:54)
[2017-01-04] MEDS: FUROSEMIDE 40 MG TABLET (FP) PO SCH (09:00)
[2017-01-04] MEDS: FINASTERIDE 5 MG TABLET (FP) PO SCH (09:00)
[2017-01-04] MEDS: ASPIRIN 81 MG CHEWABLE TABLETS PO SCH (09:00)
[2017-01-04 09:10] LABS: BASOPHIL 0.5 % (0-2.0); EOSINOPHIL 7.4 % (0-4.5); MCH 29.8 pg (25.7-33.7); MCHC 33.6 g/dl (32.0-35.9); MEAN CELL VOLUME 88.6 fl (80-96); MEAN PLT VOLUME 9.5 fl (7.5-11.1); NEUTROPHILS 66.7 % (42.8-82.8); PLATELET COUNT 183 K/MM3 (134-434); RDW 12.9 % (11.9-15.9); WHITE BLOOD COUNT 6.3 K/mm3 (4.0-10.8)
[2017-01-04 09:20] LABS: ANION GAP 10 (8-16); CALCIUM 8.6 mg/dl (8.4-10.2); CO2 27 mmol/L (22-28); CREATININE 1.8 mg/dl (0.6-1.3); GLUCOSE,RANDOM 156 mg/dl (74-106); MAGNESIUM 2.1 mg/dL (1.8-2.4)
--- NOTE | 2017-01-04 09:36 | PN ---
Physical Exam: SUBJECTIVE: Patient seen and examined. Complains only of constipation. Attempted to ambulate him with walker and he was only able to take about 3 steps before becoming very shaky- assisted him back to chair. He denies dizziness/lightheadedness and says his legs feel weak and he is afraid of falling again. OBJECTIVE: Vital Signs Period Temp Pulse Resp BP Sys/Eisenberg Pulse Ox Last 24 Hr 97.8 F-98.7 F 70-77 16-20 137-170/59-77 97-100 GENERAL: The patient is awake, alert, and fully oriented, in no acute distress. HEAD: Normal with no signs of trauma. EYES: PERRL, extraocular movements intact, sclera anicteric, conjunctiva clear. No ptosis. ENT: Ears normal, nares patent, oropharynx clear without exudates, moist mucous membranes. NECK: Trachea midline, full range of motion, supple. LUNGS: Breath sounds equal, clear to auscultation bilaterally, no wheezes, no crackles, no accessory muscle use. HEART: Regular rate and rhythm, S1, S2 without murmur, rub or gallop. ABDOMEN: Soft, nontender, nondistended, normoactive bowel sounds, no guarding, no rebound, no hepatosplenomegaly, no masses. EXTREMITIES: 2+ pulses, warm, well-perfused, trace LE edema. NEUROLOGICAL: Cranial nerves II through XII grossly intact. Normal speech, unsteady gait. PSYCH: Normal mood, normal affect. SKIN: Lumbar dressing clean, dry, intact. Laboratory Results - last 24 hr 01/03/17 01/03/17 01/03/17 12:00 12:25 16:00 WBC RBC Hgb Hct MCV MCH MCHC RDW Plt Count MPV Neutrophils % Lymphocytes % Monocytes % Eosinophils % Basophils % Sodium Potassium Chloride Carbon Dioxide Anion Gap BUN Creatinine POC Glucometer 234 195 Random Glucose Calcium Magnesium Creatine Kinase 603 H Creatine Kinase Index 0.9 CK-MB (CK-2) 5.9 H Troponin I 0.05 01/03/17 01/04/17 01/04/17 21:52 06:15 06:15 WBC 6.3 RBC 3.23 L Hgb 9.6 L D Hct 28.7 L MCV 88.6 MCH 29.8 MCHC 33.6 RDW 12.9 D Plt Count 183 MPV 9.5 Neutrophils % 66.7 Lymphocytes % 15.8 Monocytes % 9.6 Eosinophils % 7.4 H Basophils % 0.5 Sodium 135 L Potassium 3.7 Chloride 98 Carbon Dioxide 27 Anion Gap 10 BUN 40 H Creatinine 1.8 H POC Glucometer 277 Random Glucose 156 H D Calcium 8.6 Magnesium 2.1 Creatine Kinase Creatine Kinase Index CK-MB (CK-2) Troponin I 01/04/17 06:17 WBC RBC Hgb Hct MCV MCH MCHC RDW Plt Count MPV Neutrophils % Lymphocytes % Monocytes % Eosinophils % Basophils % Sodium Potassium Chloride Carbon Dioxide Anion Gap BUN Creatinine POC Glucometer 163 Random Glucose Calcium Magnesium Creatine Kinase Creatine Kinase Index CK-MB (CK-2) Troponin I Active Medications Generic Name Dose Route Start Last Admin Trade Name Freq PRN Reason Stop Dose Admin Acetaminophen 500 mg 12/31/16 11:38 01/03/17 13:17 Tylenol - PO 500 mg Q6H PRN Administration FEVER OR PAIN Aspirin 81 mg 12/31/16 10:00 01/04/17 09:00 Asa - PO 81 mg DAILY DORA Administration Finasteride 5 mg 12/31/16 10:00 01/04/17 09:00 Proscar - PO 5 mg DAILY DORA Administration Furosemide 80 mg 12/31/16 10:00 01/04/17 09:00 Lasix - PO 80 mg DAILY DORA Administration Insulin Aspart 0 units 12/30/16 16:30 01/04/17 07:00 Novolog Vial SQ 2 units ACHS DORA Administration Protocol Insulin Detemir 70 units 12/31/16 22:00 01/03/17 21:53 Levemir Vial SQ 70 units HS DORA Administration Labetalol HCl 300 mg 12/31/16 08:00 01/04/17 08:54 Normodyne - PO 300 mg BID@08,1999 DORA Administration Levothyroxine Sodium 50 mcg 12/31/16 07:00 01/04/17 06:07 Synthroid - PO 50 mcg DAILY@0700 DORA Administration Morphine Sulfate 2 mg 12/30/16 11:42 12/30/16 17:57 Morphine Injection - IVPUSH 2 mg Q3H PRN Administration SEVERE PAIN Nifedipine 30 mg 12/31/16 08:00 01/04/17 08:54 Procardia Xl - PO 30 mg DAILY@0800 DORA Administration Oxycodone HCl 10 mg 12/30/16 11:42 12/31/16 07:57 Roxicodone - PO 10 mg Q4H PRN Administration PAIN Oxycodone HCl 5 mg 12/30/16 11:42 Roxicodone - PO Q4H PRN PAIN Pregabalin 75 mg 12/30/16 22:00 01/03/17 21:55 Lyrica - PO 75 mg HS DORA Administration Valsartan 320 mg 12/31/16 08:00 01/04/17 08:53 Diovan - PO 320 mg DAILY@0800 DORA Administration Imaging: Head CT 01/03: No acute intracranial process LS spine xray 01/03: No change Previous: Echo 05/26/16, ef 45-50%, grade II diastolic dysfunction ASSESSMENT/PLAN: 81 year old male POD #3 s/p laminectomy with multiple syncopal/ near syncopal episodes. 1. MS: POD #4, s/p lumbar laminectomy with Dr. Tatum - Has not required pain medication - Encouraged incentive spirometer - Awaiting rehab bed placement 2. CARDS: Syncope/near syncope - Not orthostatic today - Workup essentially unremarkable as above - Holding alpha j luis without apparent effect on urine output - Will also decrease Lasix modestly from 80mg to 60mg daily - Seems to be primarily issue of deconditioning rather than true syncope - patient is awaiting rehab placement 3. RENAL: CKD - Cr today 1.8 (2.5 on most recent visit in August) - Monitor, avoid nephrotoxic meds as able 5. ENDO: NIDDM - A1C 7.0 - Continue Levemir and ISS, FSACHS, diabetic diet 6. F/E/N - Diabetic, low sodium diet - PO intake adequate 7. Ppx - SCDs - Incentive spirometer - PT Dispo: We will continue to follow the patient. Thank you for this consultative opportunity. Visit type - Emergency Visit Emergency Visit: Yes ED Registration Date: 12/31/16 Care time: The patient presented to the Emergency Department on the above date and was hospitalized for further evaluation of their emergent condition. - New Patient This patient is new to me today: No - Critical Care Critical Care patient: No - Discharge Referral Referred to [facility] Med P.C.: No
[2017-01-04] MEDS ORDERED: FUROSEMIDE 40 MG TABLET (FP) PO SCH (10:08)
[2017-01-04 10:30] LABS: TROPONIN I 0.04 ng/ml (0.00-0.05)
[2017-01-04] MEDS ORDERED: INSULIN (NOVOLOG) ASPART 100 UNITS/ML 10ML VIAL ONE (11:36)
[2017-01-04] MEDS: DOCUSATE SODIUM 100 MG CAPSULE (FP) PO SCH ×2 (14:37→21:47)
[2017-01-04] MEDS: POLYETHYLENE GLYCOL 3350 119 GM BTL PO SCH ×2 (14:37→21:50)
[2017-01-04] MEDS: PREGABALIN 25 MG CAPSULE PO SCH (21:47)
[2017-01-04] MEDS: INSULIN DETEMIR 100 UNITS/ML MDV SQ SCH (21:48)
[2017-01-05] MEDS: LEVOTHYROXINE NA 50 MCG TABLET (FP) PO SCH (06:37)
[2017-01-05] MEDS: DOCUSATE SODIUM 100 MG CAPSULE (FP) PO SCH (06:38)
[2017-01-05] MEDS: INSULIN (NOVOLOG) ASPART 100 UNITS/ML 10ML VIAL SQ SCH (06:38)
[2017-01-05 06:44] VITALS: BP 157/68; PULSE 67; TEMP 98.2
--- NOTE | 2017-01-05 08:15 | PN ---
Physical Exam: SUBJECTIVE: Patient seen and examined, reports feeling better, denies any dizziness, chest pain or shortness of breath. ambulated patient with walker, denies any dizziness or shortness of breath, reports fear of falling. OBJECTIVE: patient is a 81 year old male POD #4 s/p laminectomy with multiple near syncopal episodes. Vital Signs Period Temp Pulse Resp BP Sys/Eisenberg Pulse Ox Last 24 Hr 97.8 F-98.8 F 67-78 16-18 149-166/58-70 98-99 GENERAL: The patient is awake, alert, and fully oriented, in no acute distress. HEAD: Normal with no signs of trauma. EYES: PERRL, extraocular movements intact, sclera anicteric, conjunctiva clear. No ptosis. ENT: Ears normal, nares patent, oropharynx clear without exudates, moist mucous membranes. NECK: Trachea midline, full range of motion, supple. LUNGS: Breath sounds equal, clear to auscultation bilaterally, no wheezes, no crackles, no accessory muscle use. HEART: Regular rate and rhythm, S1, S2 without murmur, rub or gallop. ABDOMEN: Soft, nontender, nondistended, normoactive bowel sounds, no guarding, no rebound, no hepatosplenomegaly, no masses. EXTREMITIES: 2+ pulses, warm, well-perfused, trace LE edema. NEUROLOGICAL: Cranial nerves II through XII grossly intact. Normal speech, unsteady gait. PSYCH: Normal mood, normal affect. SKIN: Lumbar dressing clean, dry, intact. Laboratory Results - last 24 hr 01/04/17 01/04/17 01/04/17 06:15 06:15 06:15 WBC 6.3 RBC 3.23 L Hgb 9.6 L D Hct 28.7 L MCV 88.6 MCH 29.8 MCHC 33.6 RDW 12.9 D Plt Count 183 MPV 9.5 Neutrophils % 66.7 Lymphocytes % 15.8 Monocytes % 9.6 Eosinophils % 7.4 H Basophils % 0.5 Sodium 135 L Potassium 3.7 Chloride 98 Carbon Dioxide 27 Anion Gap 10 BUN 40 H Creatinine 1.8 H POC Glucometer Random Glucose 156 H D Calcium 8.6 Magnesium 2.1 Creatine Kinase 555 H Creatine Kinase Index 0.5 CK-MB (CK-2) 2.989 Troponin I 0.04 01/04/17 01/04/17 01/04/17 11:30 16:29 21:46 WBC RBC Hgb Hct MCV MCH MCHC RDW Plt Count MPV Neutrophils % Lymphocytes % Monocytes % Eosinophils % Basophils % Sodium Potassium Chloride Carbon Dioxide Anion Gap BUN Creatinine POC Glucometer 205 190 259 Random Glucose Calcium Magnesium Creatine Kinase Creatine Kinase Index CK-MB (CK-2) Troponin I 01/05/17 06:30 WBC RBC Hgb Hct MCV MCH MCHC RDW Plt Count MPV Neutrophils % Lymphocytes % Monocytes % Eosinophils % Basophils % Sodium Potassium Chloride Carbon Dioxide Anion Gap BUN Creatinine POC Glucometer 160 Random Glucose Calcium Magnesium Creatine Kinase Creatine Kinase Index CK-MB (CK-2) Troponin I Active Medications Generic Name Dose Route Start Last Admin Trade Name Freq PRN Reason Stop Dose Admin Acetaminophen 500 mg 12/31/16 11:38 01/03/17 13:17 Tylenol - PO 500 mg Q6H PRN Administration FEVER OR PAIN Aspirin 81 mg 12/31/16 10:00 01/04/17 09:00 Asa - PO 81 mg DAILY [facility] Administration Docusate Sodium 100 mg 01/04/17 14:15 01/05/17 06:38 Colace - PO 100 mg TID DORA Administration Finasteride 5 mg 12/31/16 10:00 01/04/17 09:00 Proscar - PO 5 mg DAILY DORA Administration Furosemide 60 mg 01/04/17 10:08 Lasix - PO DAILY [facility] Insulin Aspart 0 units 12/30/16 16:30 01/05/17 06:38 Novolog Vial SQ 2 units ACHS DORA Administration Protocol Insulin Detemir 70 units 12/31/16 22:00 01/04/17 21:48 Levemir Vial SQ 70 units HS [facility] Administration Labetalol HCl 300 mg 12/31/16 08:00 01/04/17 20:04 Normodyne - PO 300 mg BID@08 DORA Administration Levothyroxine Sodium 50 mcg 12/31/16 07:00 01/05/17 06:37 Synthroid - PO 50 mcg DAILY@0700 DORA Administration Morphine Sulfate 2 mg 12/30/16 11:42 12/30/16 17:57 Morphine Injection - IVPUSH 2 mg Q3H PRN Administration SEVERE PAIN Nifedipine 30 mg 12/31/16 08:00 01/04/17 08:54 Procardia Xl - PO 30 mg DAILY@0800 DORA Administration Oxycodone HCl 10 mg 12/30/16 11:42 12/31/16 07:57 Roxicodone - PO 10 mg Q4H PRN Administration PAIN Oxycodone HCl 5 mg 12/30/16 11:42 Roxicodone - PO Q4H PRN PAIN Polyethylene Glycol 17 gm 01/04/17 14:15 01/04/17 21:50 Miralax (For Daily Use) - PO 17 gm BID DORA Administration Pregabalin 75 mg 12/30/16 22:00 01/04/17 21:47 Lyrica - PO 75 mg HS DORA Administration Valsartan 320 mg 12/31/16 08:00 01/04/17 08:53 Diovan - PO 320 mg DAILY@0800 DORA Administration Imaging: Head CT 01/03: No acute intracranial process LS spine xray 01/03: No change Previous: Echo 05/26/16, ef 45-50%, grade II diastolic dysfunction ASSESSMENT/PLAN: 1. MS: POD #4, s/p lumbar laminectomy with Dr. Tatum - Has not required pain medication - Encouraged incentive spirometer - Awaiting rehab bed placement 2. CARDS: Syncope/near syncope - Not orthostatic today - Workup essentially unremarkable as above - Holding alpha j luis without apparent effect on urine output - continue lasix 60mg daily - Seems to be primarily issue of deconditioning rather than true syncope - patient is awaiting rehab placement 3. RENAL: CKD - Cr today 2.2 (2.5 on most recent visit in August) - Monitor, avoid nephrotoxic meds as able 5. ENDO: NIDDM - A1C 7.0 - Continue Levemir and ISS, FSACHS, diabetic diet 6. F/E/N - Diabetic, low sodium diet - PO intake adequate 7. Ppx - SCDs - Incentive spirometer - PT Dispo: We will continue to follow the patient. Thank you for this consultative opportunity. Visit type - Emergency Visit Emergency Visit: No - New Patient This patient is new to me today: No - Critical Care Critical Care patient: No - Discharge Referral Referred to [facility] Med P.C.: No
[2017-01-05] MEDS: LABETALOL HCL 100 MG TABLET (FP) PO SCH (08:29)
[2017-01-05] MEDS: VALSARTAN 160 MG TABLET (UD) PO SCH (08:30)
[2017-01-05] MEDS: NIFEdipine E.R. 30 MG TABLET (FP) PO SCH (08:30)
[2017-01-05] MEDS: ACETAMINOPHEN 500 MG TABLET (FP) PO PRN (08:31)
[2017-01-05 09:12] LABS: BASOPHIL 0.7 % (0-2.0); EOSINOPHIL 7.6 % (0-4.5); MCH 30.1 pg (25.7-33.7); MCHC 34.2 g/dl (32.0-35.9); MEAN CELL VOLUME 88.1 fl (80-96); MEAN PLT VOLUME 9.3 fl (7.5-11.1); NEUTROPHILS 60.8 % (42.8-82.8); PLATELET COUNT 191 K/MM3 (134-434); RDW 12.7 % (11.9-15.9); WHITE BLOOD COUNT 5.7 K/mm3 (4.0-10.8)
[2017-01-05 09:25] LABS: ANION GAP 10 (8-16); CALCIUM 8.8 mg/dl (8.4-10.2); CO2 27 mmol/L (22-28); CREATININE 1.9 mg/dl (0.6-1.3); GLUCOSE,RANDOM 147 mg/dl (74-106); MAGNESIUM 2.1 mg/dL (1.8-2.4)
[2017-01-05] MEDS: ASPIRIN 81 MG CHEWABLE TABLETS PO SCH (09:44)
[2017-01-05] MEDS: FINASTERIDE 5 MG TABLET (FP) PO SCH (09:44)
[2017-01-05] MEDS: POLYETHYLENE GLYCOL 3350 119 GM BTL PO SCH (09:45)
--- NOTE | 2017-01-13 22:57 | EKG ---
Test Reason : Blood Pressure : / mmHG Vent. Rate : 071 BPM Atrial Rate : 071 BPM P-R Int : 172 ms QRS Dur : 092 ms QT Int : 426 ms P-R-T Axes : 076 -34 073 degrees QTc Int : 462 ms NORMAL SINUS RHYTHM BASELINE ARTIFACTS LEFT AXIS DEVIATION MINIMAL VOLTAGE CRITERIA FOR LVH, MAY BE NORMAL VARIANT NONSPECIFIC T WAVE ABNORMALITY PROLONGED QT ABNORMAL ECG WHEN COMPARED WITH ECG OF 19-SEP-2016 15:45, [place] INTERVAL HAS DECREASED NONSPECIFIC T WAVE ABNORMALITY HAS REPLACED INVERTED T WAVES IN INFERIOR LEADS NONSPECIFIC T WAVE ABNORMALITY, WORSE IN LATERAL LEADS REPEAT EKG IF CLINICALLY INDICATED Confirmed by LULA LARSEN MD ([id number]) on 01/13/2017 10:56:27 PM Referred By: Edson Tatum Confirmed By:LULA LARSEN MD
== END 2017-01-05 12:10 | disposition home health service (06) | DRG 519 ==
LOC: FASU 06:06 → EDSTATUS 10:30 → FM/S 15:46 → FASU 15:46 → FM/S 12-31 11:38
PROVIDERS: ADMIT Orthopaedic Surgery Orthopaedic Surgery of the Spine; ATTEND Orthopaedic Surgery Orthopaedic Surgery of the Spine
PROC: 00NY0ZZ Release Lumbar Spinal Cord, Open Approach (ICD-10-PCS; principal; 2016-12-30 08:00)
DX: M48.062 Spinal stenosis, lumbar region with neurogenic claudication (principal); I13.0 Hypertensive heart and chronic kidney disease with heart failure and stage 1 through stage 4 chronic kidney disease, or unspecified chronic kidney disease; I50.32 Chronic diastolic (congestive) heart failure; E11.22 Type 2 diabetes mellitus with diabetic chronic kidney disease; N18.9 Chronic kidney disease, unspecified; R55 Syncope and collapse; I25.10 Atherosclerotic heart disease of native coronary artery without angina pectoris
CPT/HCPCS: 36415; 70450-TC; 72100-TC; 76000-TC; 80048; 80053; 82553; 83735; 84484; 85025; 85027; 85610; 93005; 93010; 94010; 94760; 97116-GP; 97162-GP

== ENCOUNTER 2017-08-19 07:35 | Day surgery (SDC) | payer BC ==
[2017-08-18 13:41] VITALS: BMI 29.0
[2017-08-19] MEDS ORDERED: ONDANSETRON 4 MG/2 ML VIAL IVPUSH PRN (09:19)
[2017-08-19] MEDS ORDERED: PROMETHAZINE HCL 25 MG/1 ML VIAL IVPB PRN (09:19)
[2017-08-19] MEDS ORDERED: MIDAZOLAM HCL 2 MG/2 ML SINGLE DOSE VIAL ONE (09:28)
[2017-08-19] MEDS ORDERED: LACTATED RINGERS SOLUTION 1,000 ML IV SCH (09:30)
--- NOTE | 2017-08-19 09:41 | HP ---
History & Physical Update - History History: No Change - Physical Physical: No Change - Assessment Assessment: No Change - Plan Plan: No Change ( 08/18/17)
[2017-08-19] MEDS ORDERED: ACETAMINOPHEN 1000 MG/100 ML VIAL (NON FORMULARY) IVPB ONE (09:42)
[2017-08-19] MEDS ORDERED: IBUPROFEN 800 MG/8 ML IJ IVPB SCH (09:45)
[2017-08-19] MEDS ORDERED: DEXTROSE 5%-0.45% SALINE 1,000 ML IV SCH (09:45)
[2017-08-19] MEDS ORDERED: SODIUM CHLORIDE 0.9% P/F 10 ML VIAL IJ ONE (09:57)
[2017-08-19] MEDS ORDERED: ceFAZolin SODIUM 1 GM VIAL ONE (09:57)
[2017-08-19] MEDS ORDERED: ceFAZolin SODIUM 1 GM VIAL IVPB ONE (09:59)
[2017-08-19] MEDS ORDERED: ACETAMINOPHEN INJECTION 100 ML IVPB ONE (11:10)
[2017-08-19 15:20] VITALS: BP 140/71; PULSE 60; TEMP 98
--- NOTE | 2017-08-21 09:38 | OP ---
DATE OF OPERATION: 08/19/2017 PREOPERATIVE DIAGNOSIS: Benign prostatic hypertrophy with nocturia and urinary retention. POSTOPERATIVE DIAGNOSIS: Benign prostatic hypertrophy with nocturia and urinary retention. PROCEDURE: GreenLight laser prostatectomy. ANESTHESIA: General. SURGEON: Bereket Edwards MD ESTIMATED BLOOD LOSS: Minimal. FINDINGS: Obstructive prostate tissue. DRAINS: A Long catheter. PREOPERATIVE INDICATIONS: The patient is an 82-year-old male with long history of enlarged prostate with urinary retention and nocturia. He has been on medications for a long time, but he is starting to fail these medications. He comes to the OR today for GreenLight laser prostatectomy. DESCRIPTION OF PROCEDURE: Patient is brought to the OR, place on the table in supine position, given general anesthesia and IV antibiotics and placed in modified lithotomy position. The groin was prepped and draped sterilely. Cystoscopy was performed. The distal urethra appeared to be normal. The sphincter was intact. The prostate was enlarged and obstructive. The bladder itself, both UOs were seen. There was some mild trabeculation throughout. No tumors or stones were seen. Using GreenLight laser fiber, the prostate tissue was vaporized, opening the prostate fossa and relieving the obstruction. Approximately 100,000 joules was used to do this. After the resection, both UOs were seen and were not injured. The sphincter itself was visualized and not injured. A Long catheter was placed, with clear output. Patient was woken up. BEREKET EDWARDS M.D. [id number]
== END 2017-08-19 15:25 | disposition home or self-care (01) ==
LOC: JASU-SURG 07:35
PROVIDERS: ATTEND Urology
PROC: 0V508ZZ Destruction of Prostate, Via Natural or Artificial Opening Endoscopic (ICD-10-PCS; principal; 2017-08-19 09:00)
DX: N40.1 Benign prostatic hyperplasia with lower urinary tract symptoms (principal); R35.1 Nocturia; R33.9 Retention of urine, unspecified
CPT/HCPCS: 82962; 94760; J0131

== ENCOUNTER 2019-04-30 23:33 | Inpatient (IN) | payer BC, OTHER ==
[2019-04-30] MEDS ORDERED: AMPICILLIN NA/SULBACTAM NA 3 GM in SODIUM CHLORIDE 100 ML IVPB ONE (23:40)
[2019-04-30] MEDS ORDERED: VANCOMYCIN 1 GM in D5W (PRE-DOCKED) 1,000 MG/250 ML IVPB ONE (23:41)
[2019-04-30] MEDS ORDERED: VANCOMYCIN 1,000 MG VIAL (RESTRICTED TO ID ONLY) ONE (23:50)
[2019-04-30] MEDS ORDERED: AMPICILLIN NA/SULBACTAM NA 3 GM VIAL ONE (23:50)
--- NOTE | 2019-05-01 00:11 | PDOC ---
History of Present Illness - General Chief Complaint: Redness To Affected Area Stated Complaint: WOUND LT 1ST TOE Time Seen by Provider: 04/30/19 23:36 History Source: Patient Exam Limitations: No Limitations - History of Present Illness Initial Comments: 05/01/19 00:42 83yM DMx 25 y worsening toe infection has not taken abx 05/01/19 00:43 Timing/Duration: reports: week Severity: Yes: moderate Location: reports: feet Respiratory Risk Factors: denies: medications Modifying Factors: worse with: calamine lotion, scratching Associated Symptoms: reports: swelling/mass/lumps. denies: fever, flushing Past History - Past Medical History Allergies/Adverse Reactions: Allergies Allergy/AdvReac Type Severity Reaction Status Date / Time No Known Drug Allergies Allergy Verified 08/18/17 13:41 Home Medications: Ambulatory Orders Insulin Regular, Human [Humulin R -] 0 - 30 units SQ BID 09/18/14 Levothyroxine [Synthroid -] 50 mcg PO DAILY 02/07/16 Terazosin HCl 2 mg PO BID 02/07/16 Aspirin [ASA -] 81 mg PO DAILY 05/26/16 Insulin (Levemir) [Levemir Vial] 70 units SQ HS 09/19/16 Pregabalin [Lyrica -] 75 mg PO BID 09/19/16 Glimepiride [Amaryl -] 4 mg PO BID 08/18/17 Glipizide/Metformin HCl [Glipizide-Metformin 5-500 mg] 1 each PO DAILY 08/18/17 Torsemide [Demadex] 100 mg PO BID 08/18/17 Atorvastatin Ca [Lipitor] 20 mg PO HS 05/01/19 Icosapent Ethyl [Vascepa] 1 gm PO DAILY 05/01/19 Isosorbide Mononitrate [Isosorbide Mononitrate ER] 30 mg PO AM 05/01/19 Labetalol HCl [Normodyne -] 200 mg PO DAILY 05/01/19 Nifedipine ER [Procardia Xl -] 30 mg PO DAILY 05/01/19 Anemia: No Asthma: No Cancer: No Cardiac Disorders: No CVA: No COPD: No CHF: No Dementia: No Diabetes: Yes (OVER 1O YRS) GI Disorders: No Disorders: Yes (BPH) HTN: Yes Hypercholesterolemia: No Liver Disease: No Seizures: No Thyroid Disease: Yes (HYPOTHYROIDISM) - Surgical History Abdominal Surgery: No Appendectomy: No Cardiac Surgery: No Cholecystectomy: No Lung Surgery: No Neurologic Surgery: No Orthopedic Surgery: Yes (BILATERAL TKR 8 AND 10 YEARS AGO) - Psycho Social/Smoking Cessation Hx Smoking History: Unknown if ever smoked Have you smoked in the past 12 months: No Hx Alcohol Use: Yes (rarely) Drug/Substance Use Hx: No Substance Use Type: None Hx Substance Use Treatment: No Review of Systems - Review of Systems All Other Systems: Reviewed and Negative *Physical Exam - Vital Signs Last Vital Signs Temp Pulse Resp BP Pulse Ox 97.4 F L 79 16 195/86 H 96 04/30/19 23:35 04/30/19 23:35 04/30/19 23:35 04/30/19 23:35 04/30/19 23:35 - Physical Exam General Appearance: Yes: Nourished, Appropriately Dressed HEENT: positive: Normal Voice Neck: negative: Lymphadenopathy (R), Lymphadenopathy (L) Respiratory/Chest: positive: Lungs Clear Cardiovascular: positive: Regular Rhythm Gastrointestinal/Abdominal: negative: Tender Lymphatic: negative: Adenopathy Musculoskeletal: positive: Other (left great toe ulcer with erythema and tenderness, erythema and tenderness extending onto foot) Extremity: positive: Normal Capillary Refill, Erythema. negative: Delayed Capillary Refill Integumentary: positive: Normal Color Neurologic: positive: Alert Medical Decision Making - Medical Decision Making 05/01/19 00:45 Diabetic foot infection with ulceration and cellulitis extending proximally foot films nl, as read by me, referred to radiology for definitive results labs pending at this time broad spectrum IV abx Discharge - Discharge Information Problems reviewed: Yes Clinical Impression/Diagnosis: Cellulitis Qualifiers: Site of cellulitis: extremity Site of cellulitis of extremity: lower extremity Laterality: left Qualified Code(s): L03.116 - Cellulitis of left lower limb Condition: Stable - Admission Yes - Follow up/Referral - Patient Discharge Instructions - Post Discharge Activity
[2019-05-01 00:51] LABS: BASO % 0.8 % (0-2.0); EOS % 5.9 % (0-4.5); HEMATOCRIT 36.6 % (35.4-49); HEMOGLOBIN 12.4 GM/dL (11.7-16.9); LYMPH % 23.8 % (8-40); MCH 29.4 pg (25.7-33.7); MEAN CELL VOLUME 86.5 fl (80-96); NEUT % 62.5 % (42.8-82.8); PLATELET COUNT 191 K/MM3 (134-434); RBC 4.23 M/mm3 (4.00-5.60); RDW 14.6 % (11.9-15.9); WHITE BLOOD COUNT 6.9 K/mm3 (4.0-10.0)
[2019-05-01 01:40] LABS: BILIRUBIN,TOTAL 0.4 mg/dL (0.2-1); BLOOD UREA NITROGEN 65.9 mg/dL (7-18); CALCIUM 9.6 mg/dL (8.5-10.1); CREATININE 3.1 mg/dL (0.55-1.3); POTASSIUM 3.9 mmol/L (3.5-5.1); TOT PROT 7.2 g/dl (6.4-8.2)
[2019-05-01] MEDS ORDERED: SODIUM CHLORIDE 0.9% 500 ML INFUS.BAG IV ONE (01:50)
[2019-05-01 02:57] VITALS: BMI 30.9
[2019-05-01] MEDS: ISOSORBIDE MONONITRATE 30 MG TAB.SR.24H (FP) PO SCH (07:18)
[2019-05-01] MEDS: INSULIN SLIDING SCALE (NOVOLOG) 1 VIAL SQ SCH ×4 (07:18→21:10)
[2019-05-01] MEDS: LEVOTHYROXINE NA 50 MCG TABLET (FP) PO SCH (07:18)
--- NOTE | 2019-05-01 08:54 | HP ---
Admitting History and Physical - Admission Chief Complaint: Left LE Pain and swelling History of Present Illness: 83 male with a past medical history of HTN, T2DM, HfpEF ,CKD stage 4 non complint with diet present with Left toe, ulcer with worsening pain and swelling for past 7 days denies any discharge, fever, nausea, vomiting or chills , yesterday came to Ed for evaluation feels improve swelling is regressing. History Source: Patient - Past Medical History Cardiovascular: Yes: CHF, HTN, Hyperlipdemia Pulmonary: Yes: Sleep Apnea Renal/: Yes: Renal Inusuff, BPH Endocrine: Yes: Diabetes Mellitus, Hypothyroidism - Past Surgical History Past Surgical History: Yes: Hernia Repair, Joint Replacement (B/L Knee and Rt Hip) - Smoking History Smoking history: Unknown if ever smoked Have you smoked in the past 12 months: No - Alcohol/Substance Use Hx Alcohol Use: Yes (rarely) - Social History Usual Living Arrangement: Yes: With Spouse History of Recent Travel: No Home Medications - Allergies Allergies/Adverse Reactions: Allergies Allergy/AdvReac Type Severity Reaction Status Date / Time No Known Drug Allergies Allergy Verified 08/18/17 13:41 - Home Medications Home Medications: Ambulatory Orders Insulin Regular, Human [Humulin R -] 0 - 30 units SQ BID 09/18/14 Levothyroxine [Synthroid -] 50 mcg PO DAILY 02/07/16 Terazosin HCl 2 mg PO BID 02/07/16 Aspirin [ASA -] 81 mg PO DAILY 05/26/16 Insulin (Levemir) [Levemir Vial] 70 units SQ HS 09/19/16 Pregabalin [Lyrica -] 75 mg PO BID 09/19/16 Glimepiride [Amaryl -] 4 mg PO BID 08/18/17 Glipizide/Metformin HCl [Glipizide-Metformin 5-500 mg] 1 each PO DAILY 08/18/17 Torsemide [Demadex] 100 mg PO BID 08/18/17 Atorvastatin Ca [Lipitor] 20 mg PO HS 05/01/19 Icosapent Ethyl [Vascepa] 1 gm PO DAILY 05/01/19 Isosorbide Mononitrate [Isosorbide Mononitrate ER] 30 mg PO AM 05/01/19 Labetalol HCl [Normodyne -] 200 mg PO DAILY 05/01/19 Nifedipine ER [Procardia Xl -] 30 mg PO DAILY 05/01/19 Family Medical History Family Hx Cardiac Disorders: Father (HTN) Family Hx Diabetes: Mother Review of Systems - Review of Systems Constitutional: denies: Chills, Diaphoresis, Fever, Lethargy Eyes: denies: Blind Spots, Blurred Vision, Double Vision, Eye Pain HENT: denies: Difficult Swallowing, Ear Discharge, Ear Pain Neck: denies: Decreased ROM, Lumps, Pain on Movement Respiratory: denies: Cough, Exercise Intolerance, Hemoptysis Gastrointestinal: denies: Abdominal Pain, Bloating, Constipation Genitourinary: denies: Burning, Discharge, Dysuria, Flank Pain Musculoskeletal: denies: Back Pain, Crepitus, Decreased ROM Integumentary: reports: Erythema (Left LE) Endocrine: denies: Excessive Sweating, Flushing, Increased Hunger Hematology/Lymphatic: denies: Easily Bruised, Excessive Bleeding, Swollen Glands Psychiatric: denies: Altered Sleep Pattern, Anxiety, Depression Pain Intensity: 2 Physical Examination Vital Signs: Vital Signs Temperature 98.3 F 05/01/19 06:17 Pulse Rate 75 05/01/19 06:17 Respiratory Rate 19 05/01/19 06:17 Blood Pressure 180/73 H 05/01/19 06:17 O2 Sat by Pulse Oximetry (%) 95 05/01/19 06:16 Eldery man not in acute distress HEENT: Mm moist, no anemia, PERRLA, EOMI NECK: No JVd No Bruit CHEST: CTA B/L CVS: S1S2 R ABD: No distention, non tender Bs + EXT: Left great toe dry ulcer on the planter aspect Left LE Cellulites, Ulceration. 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 Labs: CBC,CMP WBC 6.9 K/mm3 (4.0-10.0) 05/01/19 00:00 RBC 4.23 M/mm3 (4.00-5.60) 05/01/19 00:00 Hgb 12.4 GM/dL (11.7-16.9) 05/01/19 00:00 Hct 36.6 % (35.4-49) 05/01/19 00:00 MCV 86.5 fl (80-96) 05/01/19 00:00 MCH 29.4 pg (25.7-33.7) 05/01/19 00:00 MCHC 34.0 g/dl (32.0-35.9) 05/01/19 00:00 RDW 14.6 % (11.9-15.9) 05/01/19 00:00 Plt Count 191 K/MM3 (134-434) 05/01/19 00:00 MPV 9.0 fl (7.5-11.1) 05/01/19 00:00 Absolute Neuts (auto) 4.3 K/mm3 (1.5-8.0) 05/01/19 00:00 Neutrophils % 62.5 % (42.8-82.8) 05/01/19 00:00 Lymphocytes % 23.8 % (8-40) D 05/01/19 00:00 Monocytes % 7.0 % (3.8-10.2) 05/01/19 00:00 Eosinophils % 5.9 % (0-4.5) H 05/01/19 00:00 Basophils % 0.8 % (0-2.0) 05/01/19 00:00 Nucleated RBC % 0 % (0-0) 05/01/19 00:00 Sodium 137 mmol/L (136-145) 05/01/19 00:00 Potassium 3.9 mmol/L (3.5-5.1) 05/01/19 00:00 Chloride 98 mmol/L (98-107) 05/01/19 00:00 Carbon Dioxide 28 mmol/L (21-32) 05/01/19 00:00 Anion Gap 11 MMOL/L (8-16) 05/01/19 00:00 BUN 65.9 mg/dL (7-18) H 05/01/19 00:00 Creatinine 3.1 mg/dL (0.55-1.3) H 05/01/19 00:00 Est GFR (CKD-EPI)AfAm 20.59 05/01/19 00:00 Est GFR (CKD-EPI)NonAf 17.77 05/01/19 00:00 POC Glucometer 295 UNITS (80-120) 05/01/19 07:11 Random Glucose 429 mg/dL (74-106) H* 05/01/19 00:00 Hemoglobin A1c % 9.8 % (4.2-6.3) H 05/01/19 00:00 Lactic Acid 1.9 mmol/L (0.4-2.0) 05/01/19 06:00 Calcium 9.6 mg/dL (8.5-10.1) 05/01/19 00:00 Total Bilirubin 0.4 mg/dL (0.2-1) 05/01/19 00:00 AST 32 U/L (15-37) 05/01/19 00:00 ALT 53 U/L (13-61) 05/01/19 00:00 Alkaline Phosphatase 93 U/L (45-117) 05/01/19 00:00 Total Protein 7.2 g/dl (6.4-8.2) 05/01/19 00:00 Albumin 4.0 g/dl (3.4-5.0) 05/01/19 00:00 Active Medications Aspirin (Asa -) 81 mg PO DAILY [facility] Last Admin: 05/01/19 09:43 Dose: 81 mg Atorvastatin Calcium (Lipitor -) 20 mg PO HS [facility] Vancomycin HCl 750 mg/ (Dextrose) 250 mls @ 250 mls/2 hr IVPB Q24H [facility]; Protocol Vancomycin HCl 750 mg/ (Dextrose) 250 mls @ 250 mls/hr IVPB ONCE ONE Stop: 05/02/19 01:59 Ampicillin Sodium/Sulbactam (Sodium 3 gm/ Sodium Chloride) 100 mls @ 200 mls/ hr IVPB Q8H-IV [facility] Insulin Aspart (Novolog Vial Sliding Scale -) 1 vial SQ ACHS [facility]; Protocol Last Admin: 05/01/19 07:18 Dose: 6 units Insulin Detemir (Levemir Vial) 70 units SQ HS [facility] Isosorbide Mononitrate (Imdur -) 30 mg PO AM [facility] Last Admin: 05/01/19 07:18 Dose: 30 mg Labetalol HCl (Normodyne -) 200 mg PO BID [facility] Last Admin: 05/01/19 09:43 Dose: 200 mg Levothyroxine Sodium (Synthroid -) 50 mcg PO DAILY@0700 [facility] Last Admin: 05/01/19 07:18 Dose: 50 mcg Nifedipine (Procardia Xl -) 30 mg PO DAILY [facility] Last Admin: 05/01/19 09:43 Dose: 30 mg Pregabalin (Lyrica -) 75 mg PO BID [facility] Terazosin HCl (Hytrin -) 2 mg PO BID [facility] Torsemide (Demadex -) 100 mg PO BID [facility] - Results X-ray: Report Reviewed (Foot: no OM no gas formation) EKG: Report Reviewed (69 NSR WI 180 QTC 467, no acute ST T changes) Problem List - Problems (1) Cellulitis Assessment/Plan: Cont current abx ID is called from ED F/U ID and Vasclar surgery recommendations Problems reviewed: Yes Code(s): L03.90 - CELLULITIS, UNSPECIFIED Qualifiers: Site of cellulitis: extremity Site of cellulitis of extremity: lower extremity Laterality: left Qualified Code(s): L03.116 - Cellulitis of left lower limb (2) Diabetes Assessment/Plan: On Levimir 70 units HS and Correction dose insulin will cont same HBA1C elevated , will hold PO meds including metformin Problems reviewed: Yes Code(s): E11.9 - TYPE 2 DIABETES MELLITUS WITHOUT COMPLICATIONS Qualifiers: Diabetes mellitus type: type 2 (3) CHF (congestive heart failure) Assessment/Plan: Compensated will resume home meds Problems reviewed: Yes Code(s): I50.9 - HEART FAILURE, UNSPECIFIED Qualifiers: Heart failure type: diastolic (4) HTN (hypertension) Assessment/Plan: Well controlled cont all home meds Problems reviewed: Yes Code(s): I10 - ESSENTIAL (PRIMARY) HYPERTENSION (5) Obesity Assessment/Plan: Nutrition consult as out patient Problems reviewed: Yes Code(s): E66.9 - OBESITY, UNSPECIFIED Qualifiers: Body mass index: BMI 31.0-31.9 (6) Hypothyroid Assessment/Plan: Cont Levothyroxine Problems reviewed: Yes Code(s): E03.9 - HYPOTHYROIDISM, UNSPECIFIED Qualifiers: Hypothyroidism type: acquired Qualified Code(s): E03.9 - Hypothyroidism, unspecified (7) CKD (chronic kidney disease) Assessment/Plan: Stable GFR due to Diabetic Nephroapthy Problems reviewed: Yes Code(s): N18.9 - CHRONIC KIDNEY DISEASE, UNSPECIFIED Qualifiers: Chronic kidney disease stage: stage 4 (severe) Qualified Code(s): N18.4 - Chronic kidney disease, stage 4 (severe) (8) Elevated lactic acid level Assessment/Plan: Most likely due to Metformin with EBER improved with Hydration. Problems reviewed: Yes Code(s): R79.89 - OTHER SPECIFIED ABNORMAL FINDINGS OF BLOOD CHEMISTRY
[2019-05-01 08:59] LABS: CALCIUM 8.8 mg/dl (8.5-10); CREATININE 2.5 mg/dl (0.55-1.3); POTASSIUM 3.2 mmol/L (3.5-5.1)
[2019-05-01] MEDS: ASPIRIN 81 MG CHEWABLE TABLETS PO SCH (09:43)
[2019-05-01] MEDS: LABETALOL HCL 200 MG TABLET (FP) PO SCH ×2 (09:43→21:10)
[2019-05-01] MEDS: NIFEdipine E.R. 30 MG TABLET PO SCH (09:43)
[2019-05-01] MEDS ORDERED: AMPICILLIN NA/SULBACTAM NA 3 GM in SODIUM CHLORIDE 100 ML IVPB SCH (11:00)
[2019-05-01] MEDS ORDERED: DEXTROSE 5%-WATER - 50 ML IVPB ONE ×2 (11:09→16:53)
[2019-05-01] MEDS ORDERED: PIPERACILLIN/TAZOBACTAM 2.25 GM VIAL IVPB ONE ×2 (11:09→16:53)
[2019-05-01] MEDS: PIPERACILLIN/TAZOB 2.25 GM 2.25 GM in DEXTROSE 5%-WATER - 50 ML IVPB SCH ×2 (11:22→17:11)
[2019-05-01] MEDS ORDERED: TORSEMIDE 100 MG TABLET PO SCH (14:00)
--- NOTE | 2019-05-01 14:00 | EKG ---
Test Reason : Blood Pressure : / mmHG Vent. Rate : 069 BPM Atrial Rate : 069 BPM P-R Int : 180 ms QRS Dur : 094 ms QT Int : 436 ms P-R-T Axes : 097 -43 090 degrees QTc Int : 467 ms POOR DATA QUALITY, INTERPRETATION MAY BE ADVERSELY AFFECTED NORMAL SINUS RHYTHM LEFT AXIS DEVIATION NONSPECIFIC T WAVE ABNORMALITY PROLONGED QT Confirmed by MD JODIE, ZOEY ([id number]) on 05/01/2019 1:59:40 PM Referred By: DR MYERS Confirmed By:ZOEY FELICIANO MD
--- NOTE | 2019-05-01 14:45 | CONSULT ---
Consult - text type - Consultation Consultation Note: Renal consult for EBER on CKD This is a 83 year old male with history of CKD stage 4 (baseline Cr ~1.9), hypertension, CHF with normal EF, DM 2 presents with LE ulcer and swelling and found to have EBER with Cr of 3. Pt seen and examined at the bedside. He reports having a wound on his toe for the past 3 weeks. He is maintained on Torsemide 100mg BID at home. Denies any change in oral intake. Does have sporadic NSAID use. No recent contrast exposure. Denies any flank pain. Making urine. Denies any SOB, CP, fever, chills or LE swelling. PMhx: as above Allergies: NKDA Family Hx: NC Social Hx: No T/A/D ROS: as per HPI, all other pertinent ros negative Home Medications Medication Instructions Recorded Insulin Regular, Human [Humulin R 0 - 30 units SQ BID 09/18/14 -] Levothyroxine [Synthroid -] 50 mcg PO DAILY 02/07/16 Terazosin HCl 2 mg PO BID 02/07/16 Aspirin [ASA -] 81 mg PO DAILY 05/26/16 Insulin (Levemir) [Levemir Vial] 70 units SQ HS 09/19/16 Pregabalin [Lyrica -] 75 mg PO BID 09/19/16 Glimepiride [Amaryl -] 4 mg PO BID 08/18/17 Glipizide/Metformin HCl 1 each PO DAILY 08/18/17 [Glipizide-Metformin 5-500 mg] Torsemide [Demadex] 100 mg PO BID 08/18/17 Atorvastatin Ca [Lipitor] 20 mg PO HS 05/01/19 Icosapent Ethyl [Vascepa] 1 gm PO DAILY 05/01/19 Isosorbide Mononitrate [Isosorbide 30 mg PO AM 05/01/19 Mononitrate ER] Labetalol HCl [Normodyne -] 200 mg PO DAILY 05/01/19 Nifedipine ER [Procardia Xl -] 30 mg PO DAILY 05/01/19 Vital Signs Temperature 98.3 F 05/01/19 14:00 Pulse Rate 75 05/01/19 14:00 Respiratory Rate 18 05/01/19 14:00 Blood Pressure 176/68 H 05/01/19 14:00 O2 Sat by Pulse Oximetry (%) 95 05/01/19 14:00 Intake & Output 04/28/19 04/29/19 04/30/19 05/01/19 23:59 23:59 23:59 23:59 Intake Total 1450 Output Total 1550 Balance -100 Weight 96 kg 97.664 kg NAD awake and and alert neck supple RRR CTA soft NT/ND no LE edema no focal neurologic deficits CBC, BMP 05/01/19 00:00 05/01/19 06:00 Current Medications Aspirin (Asa -) 81 mg PO DAILY [facility] Last Admin: 05/01/19 09:43 Dose: 81 mg Atorvastatin Calcium (Lipitor -) 20 mg PO HS [facility] Vancomycin HCl 750 mg/ (Dextrose) 250 mls @ 250 mls/hr IVPB ONCE ONE Stop: 05/02/19 01:59 Piperacillin Sod/Tazobactam (Sod 2.25 gm/ Dextrose) 50 mls @ 100 mls/hr IVPB Q8H-IV [facility]; Protocol Last Admin: 05/01/19 11:22 Dose: 100 mls/hr Insulin Aspart (Novolog Vial Sliding Scale -) 1 vial SQ ACHS [facility]; Protocol Last Admin: 05/01/19 11:01 Dose: Not Given Insulin Detemir (Levemir Vial) 70 units SQ HS [facility] Isosorbide Mononitrate (Imdur -) 30 mg PO AM [facility] Last Admin: 05/01/19 07:18 Dose: 30 mg Labetalol HCl (Normodyne -) 200 mg PO BID [facility] Last Admin: 05/01/19 09:43 Dose: 200 mg Levothyroxine Sodium (Synthroid -) 50 mcg PO DAILY@0700 [facility] Last Admin: 05/01/19 07:18 Dose: 50 mcg Nifedipine (Procardia Xl -) 30 mg PO DAILY [facility] Last Admin: 05/01/19 09:43 Dose: 30 mg Pregabalin (Lyrica -) 75 mg PO BID [facility] Terazosin HCl (Hytrin -) 2 mg PO BID [facility] Torsemide (Demadex -) 100 mg PO BIDLASIX [facility] 83 year old male with history of CKD stage 4 (baseline Cr ~1.9), hypertension, CHF with normal EF, DM 2 presents with LE ulcer and swelling and found to have EBER with Cr of 3. 1. EBER on CKD 2. CKD stage 4 3. LE wound 4. CHF with preserved LV function 5. Hypertension Renal function improving thus far Would continue iostonic saline for additional 12 hours Hold torsemide for now, can restart once renal function imporved to Cr ~2 Avoid IV contrast and NSAIDs Abx as per per primary team Continue Nifedpine ER, Labetalol. Thank you Joni Razo DO
[2019-05-01] MEDS ORDERED: SODIUM CHLORIDE 1,000 ML IV SCH (15:00)
[2019-05-01 17:31] LABS: URINE CREATININE 39.1 mg/dL (30-150)
[2019-05-01] MEDS: PREGABALIN 25 MG CAPSULE PO SCH (21:09)
[2019-05-01] MEDS: TERAZOSIN HCL 1 MG CAPSULE PO SCH (21:49)
[2019-05-01] MEDS ORDERED: ATORVASTATIN CA 20 MG TABLET (FP) PO SCH (22:00)
[2019-05-01] MEDS ORDERED: INSULIN (LEVEMIR) 100 UNITS/ML UNITS SQ SCH (22:00)
[2019-05-01] MEDS ORDERED: TERAZOSIN HCL 2 MG CAPSULE PO SCH (22:00)
[2019-05-02] MEDS ORDERED: PIPERACILLIN/TAZOBACTAM 2.25 GM VIAL IVPB ONE ×2 (00:59→08:31)
[2019-05-02] MEDS ORDERED: DEXTROSE 5%-WATER - 50 ML IVPB ONE ×2 (00:59→08:31)
[2019-05-02] MEDS ORDERED: WATER IVPB SCH (01:00)
[2019-05-02] MEDS ORDERED: VANCOMYCIN 750 MG in DEXTROSE 5%-WATER - 250 ML IVPB ONE (01:00)
[2019-05-02] MEDS ORDERED: VANCOMYCIN HCL 1,250 MG in DEXTROSE 5%-WATER - 250 ML IVPB SCH (01:00)
[2019-05-02] MEDS ORDERED: VANCOMYCIN HCL IVPB SCH (01:00)
[2019-05-02] MEDS ORDERED: DEXTROSE 5% IVPB SCH (01:00)
[2019-05-02] MEDS: PIPERACILLIN/TAZOB 2.25 GM 2.25 GM in DEXTROSE 5%-WATER - 50 ML IVPB SCH ×2 (01:59→10:06)
[2019-05-02] MEDS: LEVOTHYROXINE NA 50 MCG TABLET (FP) PO SCH (06:00)
[2019-05-02] MEDS: ISOSORBIDE MONONITRATE 30 MG TAB.SR.24H (FP) PO SCH (06:00)
[2019-05-02] MEDS: INSULIN SLIDING SCALE (NOVOLOG) 1 VIAL SQ SCH ×3 (06:08→16:44)
[2019-05-02 07:45] LABS: BASO % 0.5 % (0-2.0); EOS % 5.8 % (0-4.5); HEMATOCRIT 34.1 % (35.4-49); HEMOGLOBIN 11.4 GM/dl (11.7-16.9); LYMPH % 17.6 % (8-40); MCH 29.5 pg (25.7-33.7); MCHC 33.4 g/dl (32.0-35.9); MEAN CELL VOLUME 88.2 fl (80-96); MEAN PLT VOLUME 8.8 fl (7.5-11.1); NEUT % 69.1 % (42.8-82.8); PLATELET COUNT 171 K/MM3 (134-434); RBC 3.86 M/mm3 (4.00-5.60); RDW 13.7 % (11.9-15.9); WHITE BLOOD COUNT 6.7 K/mm3 (4.0-10.8)
[2019-05-02 07:49] LABS: CALCIUM 8.7 mg/dl (8.5-10); CREATININE 2.6 mg/dl (0.55-1.3); MAGNESIUM 1.9 mg/dL (1.8-2.4); PHOSPHOROUS 3.4 mg/dl (2.5-4.9); POTASSIUM 3.5 mmol/L (3.5-5.1)
--- NOTE | 2019-05-02 08:53 | CONSULT ---
- Consultation REQUESTING PROVIDER: CONSULT REQUEST: We have been asked to surgically evaluate this patient for left toe ulcer. PCP:Cara Kiser HISTORY OF PRESENT ILLNESS: The patient is a 83 yo male who presented to the ER for left toe pain, he has neuorpathy and was concerned when his toe became painful. Approximately three weeks ago he shaved a callous on his left great toe with an electric pumice device. He noted a little bleeding at the time. He denies any previous history of ulcer to his lower ext/feet. He ambulates with a cane and does experience pain to his back/upper leg areas which is revealed by rest. 2 times a week he exercises on a recombinant bike and doesn't have this same pain in his legs. NO history of smoking. PMHx: diabetes, peripheral neuropathy, CRI, hypothyroid PSHx: b/l knee surgery, rip hip surgery, inguinal hernia surgery , back surgery Home Medications Medication Instructions Recorded Insulin Regular, Human [Humulin R 0 - 30 units SQ BID 09/18/14 -] Levothyroxine [Synthroid -] 50 mcg PO DAILY 02/07/16 Terazosin HCl 2 mg PO BID 02/07/16 Aspirin [ASA -] 81 mg PO DAILY 05/26/16 Insulin (Levemir) [Levemir Vial] 70 units SQ HS 09/19/16 Pregabalin [Lyrica -] 75 mg PO BID 09/19/16 Glimepiride [Amaryl -] 4 mg PO BID 08/18/17 Glipizide/Metformin HCl 1 each PO DAILY 08/18/17 [Glipizide-Metformin 5-500 mg] Torsemide [Demadex] 100 mg PO BID 08/18/17 Atorvastatin Ca [Lipitor] 20 mg PO HS 05/01/19 Icosapent Ethyl [Vascepa] 1 gm PO DAILY 05/01/19 Isosorbide Mononitrate [Isosorbide 30 mg PO AM 05/01/19 Mononitrate ER] Labetalol HCl [Normodyne -] 200 mg PO DAILY 05/01/19 Nifedipine ER [Procardia Xl -] 30 mg PO DAILY 05/01/19 Allergies Allergy/AdvReac Type Severity Reaction Status Date / Time No Known Drug Allergies Allergy Verified 08/18/17 13:41 REVIEW OF SYSTEMS: CONSTITUTIONAL: Absent: fever, chills CARDIOVASCULAR: Absent: chest pain, Present: left LLE peripheral edema RESPIRATORY: Absent: cough, shortness of breath GASTROINTESTINAL: Absent: abdominal pain,nausea colonoscopy several years ago was normal MUSCULOSKELETAL: Present: occasional neck pain HEMATOLOGIC/IMMUNOLOGIC: Absent: easy bleeding, easy bruising NEUROLOGIC: Absent: headache Present: paresthesias unsteady gait ambulates with a walker PHYSICAL EXAM: GENERAL: Awake, alert, and fully oriented, in no acute distress. HEAD: Normal with no signs of trauma. LUNGS: Clear to auscultation bilat anteriorly. HEART: Regular rate and rhythm. ABDOMEN: Soft, nontender, not distended. LOWER EXTREMITIES: RLE 2+ DP/PTpulses, warm, well-perfused. No calf tenderness. No peripheral edema. LLE: +1DP/PT confirmed with doppler, warm, well-perfused. No erythema. Plantar surface of left great toe with scab appearing lesion approximately the size of a quarter. No erythema/non-tender. Mild edema to left leg/ankle. b/l toes nail thickened. NEUROLOGICAL: Normal speech, gait not observed. Vital Signs Temperature 98.4 F 05/02/19 06:35 Pulse Rate 69 05/02/19 06:35 Respiratory Rate 19 05/02/19 06:35 Blood Pressure 173/71 H 05/02/19 06:35 O2 Sat by Pulse Oximetry (%) 96 05/02/19 06:35 Lab Results WBC 6.7 K/mm3 (4.0-10.8) 05/02/19 06:58 RBC 3.86 M/mm3 (4.00-5.60) L 05/02/19 06:58 Hgb 11.4 GM/dl (11.7-16.9) L 05/02/19 06:58 Hct 34.1 % (35.4-49) L D 05/02/19 06:58 MCV 88.2 fl (80-96) 05/02/19 06:58 MCHC 33.4 g/dl (32.0-35.9) 05/02/19 06:58 RDW 13.7 % (11.9-15.9) 05/02/19 06:58 Plt Count 171 K/MM3 (134-434) 05/02/19 06:58 Sodium 137 mmol/L (136-145) 05/02/19 06:58 Potassium 3.5 mmol/L (3.5-5.1) 05/02/19 06:58 Chloride 101 mmol/L (98-107) 05/02/19 06:58 Carbon Dioxide 27 mmol/L (21-32) 05/02/19 06:58 Anion Gap 9 MMOL/L (8-16) 05/02/19 06:58 BUN 47.0 mg/dl (7-18) H 05/02/19 06:58 Creatinine 2.6 mg/dl (0.55-1.3) H 05/02/19 06:58 Random Glucose 267 mg/dl (74-106) H 05/02/19 06:58 Calcium 8.7 mg/dl (8.5-10) 05/02/19 06:58 Microbiology 05/01/19 12:30 Blood - Peripheral Venous Blood Culture - Preliminary NO GROWTH OBTAINED AFTER 24 HOURS, INCUBATION TO CONTINUE FOR 4 DAYS. 05/01/19 12:20 Blood - Peripheral Venous Blood Culture - Preliminary NO GROWTH OBTAINED AFTER 24 HOURS, INCUBATION TO CONTINUE FOR 4 DAYS. Xray of LEFt foot: bunion of 1st MTP joint, arthritic changes. destructive process is not visualized A/P: 83 yo male with diabetes and peripheral neuropathy/ CRI and improving ARF Case D/w Dr. Quinonez and will obtain b/l LE arterial studies to evaluate his lower ext circulation, clinically he has diminished pulses on the left and has now sustained a traumatic wound that isn't healing. No acute ischemic changes to his lower ext and the wound appears to be localized to the left great toe. I have ordered local wound care and depending on his arterial studies further treatment plan will be determined. We do recommend follow up in the would clinic on a regular basis for his circulation and any future vascular access needs. He does see a cyber operator as an outpt. IV abx as per ID.
[2019-05-02] MEDS: ASPIRIN 81 MG CHEWABLE TABLETS PO SCH (10:05)
[2019-05-02] MEDS: TERAZOSIN HCL 1 MG CAPSULE PO SCH (10:05)
[2019-05-02] MEDS: NIFEdipine E.R. 30 MG TABLET PO SCH (10:06)
[2019-05-02] MEDS: LABETALOL HCL 200 MG TABLET (FP) PO SCH (10:06)
[2019-05-02] MEDS: PREGABALIN 25 MG CAPSULE PO SCH (10:06)
--- NOTE | 2019-05-02 10:14 | PN ---
Progress Note (short form) - Note Progress Note: ID CONSULT DICTATED CELLULITIS L GREAT TOE IMPROVED DIABETES MELLITUS AZOTEMIA SUBSTITUTE AUGMENTIN 500MG PO BID X 7D OUTPATIENT PODIATRY F/U
--- NOTE | 2019-05-02 10:49 | CONS ---
INFECTIOUS DISEASE CONSULTATION DATE OF CONSULTATION: DATE OF DICTATION: 05/02/2019 HISTORY: The patient is an 83-year-old diabetic male who is evaluated for foot infection. The patient was admitted to the hospital on May 01, 2019. He reports that approximately a week and a half ago he developed a callus on the distal aspect of the left 1st toe. He reports trimming the callus and subsequently developing worsening erythema, warmth, and swelling of the great toe. He reports increased pain, swelling, and erythema prior to admission prompting his visit to the emergency room. He was evaluated in the emergency room where he was noted to have a dry ulceration over the plantar aspect of the left great toe with erythema, warmth, and swelling extending from the great toe proximally. X-rays were performed and were negative for fracture or dislocation. He was empirically treated with vancomycin and Zosyn. At the present time, he reports significant improvement in the left great toe swelling, erythema, and pain. No reports of wound drainage. He denies recent antibiotic therapy. Denies prior history of serious soft tissue infection requiring hospitalization or history of MRSA. PAST MEDICAL HISTORY: Positive for diabetes mellitus, hypothyroidism, chronic kidney disease, obstructive sleep apnea, hypertension, BPH. ALLERGIES: No known allergies. MEDICATIONS: Include aspirin, Lipitor, insulin, labetalol, Unasyn, Procardia, Synthroid, Lyrica. SOCIAL HISTORY: He resides in the community. No recent hospitalizations. Occasional ETOH. Negative tobacco. SYSTEMS REVIEW: Neurologic: No loss of consciousness, seizure activity, focal weakness. Cardiac: Negative chest pain or palpitations. Respiratory: Negative cough or sputum production. Gastrointestinal: Negative vomiting or diarrhea. Genitourinary: Negative for urinary tract infection. LABORATORY DATA: White count 6.7, hematocrit 34.1, platelet count 171, creatinine 2.6. X-ray as described. Chest x-ray negative. Blood cultures negative. PHYSICAL EXAMINATION: General: He is awake and alert. He is not acutely toxic appearing. Vital Signs: Temperature 98.4, blood pressure 173/71, pulse 69 regular, respirations 19 per minute. HEENT: Sclerae anicteric. Heart: Sounds S1, S2. Lungs: Clear. Abdomen: Soft. Nontender. Extremities: Examination of the left foot, there is an approximately 2 x 2-cm dry ulceration present over the distal aspect of the left great toe on the plantar surface. There is minimal surrounding erythema and swelling. No purulent drainage. No lymphangitic streaking. IMPRESSION: 1. Cellulitis, left great toe. 2. Diabetic foot ulcer. 3. Diabetes mellitus. 4. Azotemia, chronic kidney disease. PLAN: May substitute Augmentin 500 mg p.o. every 12 hours for an additional 7 days. Outpatient Podiatry follow up. Thank you for the kind referral. SINA GARCIA M.D. [id number]
--- NOTE | 2019-05-02 12:53 | PN ---
Progress Note, Physician - Current Medication List Current Medications: Active Medications Aspirin (Asa -) 81 mg PO DAILY [facility] Last Admin: 05/02/19 10:05 Dose: 81 mg Atorvastatin Calcium (Lipitor -) 20 mg PO HS [facility] Last Admin: 05/01/19 21:09 Dose: 20 mg Piperacillin Sod/Tazobactam (Sod 2.25 gm/ Dextrose) 50 mls @ 100 mls/hr IVPB Q8H-IV [facility]; Protocol Last Admin: 05/02/19 10:06 Dose: 100 mls/hr Insulin Aspart (Novolog Vial Sliding Scale -) 1 vial SQ ACHS [facility]; Protocol Last Admin: 05/02/19 11:36 Dose: 6 units Insulin Detemir (Levemir Vial) 70 units SQ HS [facility] Isosorbide Mononitrate (Imdur -) 30 mg PO AM [facility] Last Admin: 05/02/19 06:00 Dose: 30 mg Labetalol HCl (Normodyne -) 200 mg PO BID [facility] Last Admin: 05/02/19 10:06 Dose: 200 mg Levothyroxine Sodium (Synthroid -) 50 mcg PO DAILY@0700 [facility] Last Admin: 05/02/19 06:00 Dose: 50 mcg Nifedipine (Procardia Xl -) 30 mg PO DAILY [facility] Last Admin: 05/02/19 10:06 Dose: 30 mg Pregabalin (Lyrica -) 75 mg PO BID [facility] Last Admin: 05/02/19 10:06 Dose: 75 mg Terazosin HCl (Hytrin -) 2 mg PO BID [facility] Last Admin: 05/02/19 10:05 Dose: 2 mg Torsemide (Demadex -) 100 mg PO BIDLASIX [facility] Last Admin: 05/01/19 15:01 Dose: Not Given - Objective Vital Signs: Vital Signs Temperature 98.2 F 05/02/19 11:00 Pulse Rate 77 05/02/19 11:00 Respiratory Rate 20 05/02/19 11:00 Blood Pressure 156/72 05/02/19 11:00 O2 Sat by Pulse Oximetry (%) 96 05/02/19 06:35 Labs: CBC, BMP 05/02/19 06:58 05/02/19 06:58
[2019-05-02 13:55] VITALS: BP 153/78; PULSE 70; TEMP 97.7
[2019-05-02] MEDS ORDERED: BACITRACIN 15 GM TUBE TOPICAL OINTMENT TP ONE (15:00)
--- NOTE | 2019-05-02 16:43 | DS ---
Physical Exam: SUBJECTIVE: Patient seen and examined OBJECTIVE: Vital Signs Period Temp Pulse Resp BP Sys/Eisenberg Pulse Ox Last 24 Hr 97.7 F-98.4 F 68-77 16-20 153-186/67-82 94-96 PHYSICAL EXAM GENERAL: The patient is awake, alert, and fully oriented, in no acute distress. HEAD: Normal with no signs of trauma. EYES: PERRL, extraocular movements intact, sclera anicteric, conjunctiva clear. ENT: Ears normal, nares patent, oropharynx clear without exudates, moist mucous membranes. NECK: Trachea midline, full range of motion, supple. LUNGS: Breath sounds equal, clear to auscultation bilaterally, no wheezes, no crackles, no accessory muscle use. HEART: Regular rate and rhythm, S1, S2 without murmur, rub or gallop. ABDOMEN: Soft, nontender, nondistended, normoactive bowel sounds, no guarding, no rebound, no hepatosplenomegaly, no masses. EXTREMITIES: 2+ pulses, warm, well-perfused, no edema. NEUROLOGICAL: Cranial nerves II through XII grossly intact. Normal speech, gait not observed. PSYCH: Normal mood, normal affect. SKIN: Warm, dry, normal turgor, no rashes or lesions noted. LABS Laboratory Results - last 24 hr 05/01/19 05/02/19 05/02/19 16:35 06:58 06:58 WBC 6.7 RBC 3.86 L Hgb 11.4 L Hct 34.1 L D MCV 88.2 MCH 29.5 MCHC 33.4 RDW 13.7 Plt Count 171 MPV 8.8 Absolute Neuts (auto) 4.6 Neutrophils % 69.1 Lymphocytes % 17.6 Monocytes % 7.0 Eosinophils % 5.8 H Basophils % 0.5 Sodium Potassium Chloride Carbon Dioxide Anion Gap BUN Creatinine Est GFR (CKD-EPI)AfAm Est GFR (CKD-EPI)NonAf Random Glucose Calcium Phosphorus Magnesium Ur Random Creatinine Cancelled U Random Total Protein 43.0 H Urine Creatinine 39.1 Protein/Creatinin Ratio 1.1 Random Vancomycin 13.5 L 05/02/19 06:58 WBC RBC Hgb Hct MCV MCH MCHC RDW Plt Count MPV Absolute Neuts (auto) Neutrophils % Lymphocytes % Monocytes % Eosinophils % Basophils % Sodium 137 Potassium 3.5 Chloride 101 Carbon Dioxide 27 Anion Gap 9 BUN 47.0 H Creatinine 2.6 H Est GFR (CKD-EPI)AfAm 25.48 Est GFR (CKD-EPI)NonAf 21.98 Random Glucose 267 H Calcium 8.7 Phosphorus 3.4 Magnesium 1.9 Ur Random Creatinine U Random Total Protein Urine Creatinine Protein/Creatinin Ratio Random Vancomycin HOSPITAL COURSE: Date of Admission:05/01/19 Date of Discharge: 05/02/19 Pre hospital course This is a 83 year old male with history of CKD stage 4 (baseline Cr ~1.9), hypertension, CHF with normal EF, DM 2 presents with LE ulcer and swelling and found to have EBER with Cr of 3. Pt seen and examined at the bedside. He reports having a wound on his toe for the past 3 weeks. He is maintained on Torsemide 100mg BID at home. Denies any change in oral intake. Does have sporadic NSAID use. No recent contrast exposure. Denies any flank pain. Making urine. Denies any SOB, CP, fever, chills or LE swelling. Hospital course Cellulitis left great toe --augmentin x 7 days --outpatient followup with podiatry Diastolic heart failure, chronic --per Dr. Pastrana, patient's regular wet finisher, baseline Cr is 3-3.3, similar to this admission --continue torsemide 100mg BID --appeared euvolemic Chronic kidney disease --at baseline Hypertension --BP stable Type II NIDDM --Novolog sliding scale Minutes to complete discharge: 35 Discharge Summary Problems reviewed: Yes Reason For Visit: WOUND LT 1ST TOE Current Active Problems Cellulitis (Acute) Elevated lactic acid level (Acute) Condition: Stable - Instructions Diet, Activity, Other Instructions: Follow up with Dr. Quinonez in the wound clinic as an outpatient 1 week after discharge from the hospital. [phone]. Per Dr. Pastrana, you should continue to take Torsemide 100mg twice daily. You should follow up with Dr. Pastrana within 72 hours of your discharge. Referrals: Rg Solitario MD [Primary Care Provider] - Michael Pastrana MD [Staff Physician] - Javier Quinonez MD [Non Staff, Medical] - Disposition: HOME - Home Medications Comprehensive Discharge Medication List: Ambulatory Orders Insulin Regular, Human [Humulin R -] 0 - 30 units SQ BID 09/18/14 Levothyroxine [Synthroid -] 50 mcg PO DAILY 02/07/16 Terazosin HCl 2 mg PO BID 02/07/16 Aspirin [ASA -] 81 mg PO DAILY 05/26/16 Insulin (Levemir) [Levemir Vial] 70 units SQ HS 09/19/16 Pregabalin [Lyrica -] 75 mg PO BID 09/19/16 Glimepiride [Amaryl -] 4 mg PO BID 08/18/17 Glipizide/Metformin HCl [Glipizide-Metformin 5-500 mg] 1 each PO DAILY 08/18/17 Torsemide [Demadex] 100 mg PO BID 08/18/17 Atorvastatin Ca [Lipitor] 20 mg PO HS 05/01/19 Icosapent Ethyl [Vascepa] 1 gm PO DAILY 05/01/19 Isosorbide Mononitrate [Isosorbide Mononitrate ER] 30 mg PO AM 05/01/19 Labetalol HCl [Normodyne -] 200 mg PO DAILY 05/01/19 Nifedipine ER [Procardia Xl -] 30 mg PO DAILY 05/01/19 This patient is new to me today: Yes Date on this admission: 05/22/19 Emergency Visit: Yes ED Registration Date: 05/01/19 Care time: The patient presented to the Emergency Department on the above date and was hospitalized for further evaluation of their emergent condition. Critical Care patient: No - Discharge Referral Referred to [facility] Med P.C.: No
--- NOTE | 2019-05-02 16:46 | CON.CARD ---
Consult Consult Specialty:: Cardiology Referred by:: Medicine Reason for Consultation:: CHF - History of Present Illness Chief Complaint: toe ulcer History of Present Illness: 83 M h/o HTN, T2DM, HfpEF ,CKD stage 4 p/w L toe ulcer. Sees Dr. Pastrana for cardio, bl Cr 3.0-3.3 in the office, had been on torsemide 100 mg BID which was decreased to 100 mg AM and 60 mg PM due to complaints of frequent urination. Gained 5 lbs on this dose so torsemide 100 mg BID was resumed. Torsemide was held here. No chest pain, palps, dizziness, edema, dyspnea. Ulcer improving. - Past Medical History Cardio/Vascular: Yes: CHF, HTN, Hyperlipdemia Pulmonary: Yes: Sleep Apnea Renal/: Yes: Renal Inusuff, BPH Endocrine: Yes: Diabetes Mellitus, Hypothyroidism - Past Surgical History Past Surgical History: Yes: Hernia Repair, Joint Replacement (B/L Knee and Rt Hip) - Alcohol/Substance Use Hx Alcohol Use: Yes (rarely) - Smoking History Smoking history: Unknown if ever smoked Have you smoked in the past 12 months: No - Social History History of Recent Travel: No Home Medications - Allergies Allergies/Adverse Reactions: Allergies Allergy/AdvReac Type Severity Reaction Status Date / Time No Known Drug Allergies Allergy Verified 08/18/17 13:41 - Home Medications Home Medications: Ambulatory Orders Insulin Regular, Human [Humulin R -] 0 - 30 units SQ BID 09/18/14 Levothyroxine [Synthroid -] 50 mcg PO DAILY 02/07/16 Terazosin HCl 2 mg PO BID 02/07/16 Aspirin [ASA -] 81 mg PO DAILY 05/26/16 Insulin (Levemir) [Levemir Vial] 70 units SQ HS 09/19/16 Glimepiride [Amaryl -] 4 mg PO BID 08/18/17 Glipizide/Metformin HCl [Glipizide-Metformin 5-500 mg] 1 each PO DAILY 08/18/17 Torsemide [Demadex -] 100 mg PO BID 08/18/17 Atorvastatin Ca [Lipitor] 20 mg PO HS 05/01/19 Icosapent Ethyl [Vascepa] 1 gm PO DAILY 05/01/19 Isosorbide Mononitrate [Isosorbide Mononitrate ER] 30 mg PO AM 05/01/19 Labetalol HCl [Normodyne -] 200 mg PO DAILY 05/01/19 Nifedipine ER [Procardia XL -] 30 mg PO DAILY 05/01/19 Amoxicillin/Potassium Clav [Augmentin 875-125 Tablet] 1 each PO BID #14 tablet 05/02/19 Atorvastatin Ca [Lipitor] 20 mg PO HS tablet 05/02/19 Family Medical History Family History: Unremarkable Review of Systems - Review of Systems Constitutional: reports: No Symptoms Eyes: reports: No Symptoms HENT: reports: No Symptoms Neck: reports: No Symptoms Cardiovascular: reports: No Symptoms Respiratory: reports: No Symptoms Gastrointestinal: reports: No Symptoms Genitourinary: reports: No Symptoms Musculoskeletal: reports: No Symptoms Integumentary: reports: No Symptoms Neurological: reports: No Symptoms Endocrine: reports: No Symptoms Hematology/Lymphatic: reports: No Symptoms Psychiatric: reports: No Symptoms Vital Signs: Vital Signs Temperature 97.7 F 05/02/19 13:53 Pulse Rate 70 05/02/19 13:53 Respiratory Rate 05/02/19 13:53 Blood Pressure 153/78 05/02/19 13:53 O2 Sat by Pulse Oximetry (%) 94 L 05/02/19 13:53 Constitutional: Yes: Well Nourished, No Distress, Calm Eyes: Yes: Conjunctiva Clear, EOM Intact HENT: Yes: Atraumatic, Normocephalic Neck: Yes: Supple, Trachea Midline Respiratory: Yes: Regular, CTA Bilaterally Gastrointestinal: Yes: Normal Bowel Sounds, Soft Cardiovascular: Yes: Regular Rate and Rhythm Heart Sounds: Yes: S1, S2 Extremities: No: Cold Edema: No Integumentary: No: Jaundice Neurological: Yes: Alert, Oriented Psychiatric: No: Agitated - Other Data Labs, Other Data: CBC, BMP 05/02/19 06:58 05/02/19 06:58 Assessment/Plan EKG: sinus, prolonged QTc similar to prior chronic diastolic HF - d/w Dr. Pastrana - baseline Cr 3-3.3, Cr similar to baseline here - resume torsemide 100 mg BID - appears euvolemic cellulitis - manage per primary DM - manage per primary HTN - at baseline per pt, cont current meds CKD - Cr at baseline
--- NOTE | 2019-05-02 16:48 | PN ---
Progress Note, Physician Chief Complaint: Pt seen and examined at bedside. He is awake and alert. He denies shortness of breath. - Current Medication List Current Medications: Active Medications Aspirin (Asa -) 81 mg PO DAILY [facility] Last Admin: 05/02/19 10:05 Dose: 81 mg Atorvastatin Calcium (Lipitor -) 20 mg PO HS [facility] Last Admin: 05/01/19 21:09 Dose: 20 mg Piperacillin Sod/Tazobactam (Sod 2.25 gm/ Dextrose) 50 mls @ 100 mls/hr IVPB Q8H-IV [facility]; Protocol Last Admin: 05/02/19 10:06 Dose: 100 mls/hr Insulin Aspart (Novolog Vial Sliding Scale -) 1 vial SQ ACHS [facility]; Protocol Last Admin: 05/02/19 16:44 Dose: 4 units Insulin Detemir (Levemir Vial) 70 units SQ HS [facility] Isosorbide Mononitrate (Imdur -) 30 mg PO AM [facility] Last Admin: 05/02/19 06:00 Dose: 30 mg Labetalol HCl (Normodyne -) 200 mg PO BID [facility] Last Admin: 05/02/19 10:06 Dose: 200 mg Levothyroxine Sodium (Synthroid -) 50 mcg PO DAILY@0700 [facility] Last Admin: 05/02/19 06:00 Dose: 50 mcg Nifedipine (Procardia Xl -) 30 mg PO DAILY [facility] Last Admin: 05/02/19 10:06 Dose: 30 mg Pregabalin (Lyrica -) 75 mg PO BID [facility] Last Admin: 05/02/19 10:06 Dose: 75 mg Terazosin HCl (Hytrin -) 2 mg PO BID [facility] Last Admin: 05/02/19 10:05 Dose: 2 mg Torsemide (Demadex -) 100 mg PO BIDLASIX [facility] Last Admin: 05/01/19 15:01 Dose: Not Given - Objective Vital Signs: Vital Signs Temperature 97.7 F 05/02/19 13:53 Pulse Rate 70 05/02/19 13:53 Respiratory Rate 20 05/02/19 13:53 Blood Pressure 153/78 05/02/19 13:53 O2 Sat by Pulse Oximetry (%) 94 L 05/02/19 13:53 Constitutional: Yes: Calm Eyes: Yes: Conjunctiva Clear HENT: Yes: Atraumatic Cardiovascular: Yes: S1, S2 Respiratory: Yes: CTA Bilaterally Gastrointestinal: Yes: Soft Genitourinary: Yes: WNL Musculoskeletal: Yes: WNL Edema: No Neurological: Yes: Oriented Psychiatric: Yes: Oriented Labs: CBC, BMP 05/02/19 06:58 05/02/19 06:58 Assessment/Plan Current Medications Generic Name Dose Route Start Last Admin Trade Name Travq PRN Reason Stop Dose Admin Aspirin 81 mg 05/01/19 10:00 05/02/19 10:05 Asa - PO 81 mg DAILY [facility]A Administration Atorvastatin Calcium 20 mg 05/01/19 22:00 05/01/19 21:09 Lipitor - PO 20 mg HS DORA Administration Piperacillin Sod/Tazobactam 50 mls @ 100 mls/hr 05/01/19 11:00 05/02/19 10:06 Sod 2.25 gm/ Dextrose IVPB 100 mls/hr Q8H-IV [facility]A Administration Protocol Insulin Aspart 1 vial 05/01/19 07:00 05/02/19 16:44 Novolog Vial Sliding Scale - SQ 4 units ACHS DORA Administration Protocol Insulin Detemir 70 units 05/01/19 22:00 Levemir Vial SQ HS [facility]ORA Isosorbide Mononitrate 30 mg 05/01/19 07:00 05/02/19 06:00 Imdur - PO 30 mg AM [facility]A Administration Labetalol HCl 200 mg 05/01/19 10:00 05/02/19 10:06 Normodyne - PO 200 mg BID DORA Administration Levothyroxine Sodium 50 mcg 05/01/19 07:00 05/02/19 06:00 Synthroid - PO 50 mcg DAILY@0700 [facility] Administration Nifedipine 30 mg 05/01/19 10:00 05/02/19 10:06 Procardia Xl - PO 30 mg DAILY [facility]A Administration Pregabalin 75 mg 05/01/19 22:00 05/02/19 10:06 Lyrica - PO 75 mg BID DORA Administration Terazosin HCl 2 mg 05/01/19 22:00 05/02/19 10:05 Hytrin - PO 2 mg BID DORA Administration Torsemide 100 mg 05/01/19 14:00 05/01/19 15:01 Demadex - PO Not Given BIDLASIX [facility]A 1. CKD 2. HTN 3. LE wound 4. CHF with preserved LV function Plan - renal function stable - potassium stable - pt says he will follow with Dr Mejia next week - avoid nsaids
== END 2019-05-02 17:06 | disposition home or self-care (01) | DRG 638 ==
LOC: FER 23:33 → FM/S 05-01 00:08
PROVIDERS: ADMIT Internal Medicine; ATTEND Nurse Practitioner Acute Care
DX: E11.621 Type 2 diabetes mellitus with foot ulcer (principal); I13.0 Hypertensive heart and chronic kidney disease with heart failure and stage 1 through stage 4 chronic kidney disease, or unspecified chronic kidney disease; I50.32 Chronic diastolic (congestive) heart failure; L03.032 Cellulitis of left toe; N18.4 Chronic kidney disease, stage 4 (severe); L97.529 Non-pressure chronic ulcer of other part of left foot with unspecified severity; N17.9 Acute kidney failure, unspecified; E11.22 Type 2 diabetes mellitus with diabetic chronic kidney disease; Z91.11 Patient's noncompliance with dietary regimen; E78.5 Hyperlipidemia, unspecified; Z79.4 Long term (current) use of insulin; E66.9 Obesity, unspecified; E03.9 Hypothyroidism, unspecified; Z68.30 Body mass index [BMI] 30.0-30.9, adult; E11.40 Type 2 diabetes mellitus with diabetic neuropathy, unspecified; G47.33 Obstructive sleep apnea (adult) (pediatric); N40.0 Benign prostatic hyperplasia without lower urinary tract symptoms
CPT/HCPCS: 36415; 71046-TC-FY; 73630-TC-LT; 80048; 80053; 82570; 82962; 83036; 83605; 83735; 84100; 84156; 85025; 87040; 87205; 93005; 93925-TC; 99283-25; G0480; J7030

== ENCOUNTER 2019-11-27 12:29 | Inpatient (IN) | payer BC, OTHER ==
--- NOTE | 2019-11-27 12:42 | PDOC ---
History of Present Illness - General Chief Complaint: Weakness Stated Complaint: weakness Time Seen by Provider: 11/27/19 12:34 History Source: Patient, Family Exam Limitations: No Limitations - History of Present Illness Initial Comments: 11/27/19 12:40 HPI 84 year old male with history of CKD stage 4 (baseline Cr ~1.9), hypertension, HFpEF, DM 2, spinal stenosis, osteoarthritis presenting with lower extremity weakness, frequent falls over the past 3 days. This morning his BP was noted to be low 94/60s, hyperglycemia with BS in the 400s. this morning he had an episode where his legs gave out when he was getting up from bed to the dresser, and fell to the ground. no head trauma or LOC. he admits to feeling lower extremity weakness/legs giving out over the past several weeks. family notes he has been falling more frequently x several days, where he has fallen in the bathroom and his bedroom to the floor. Family notes he has been confused as well x 3 days with his increased instability and weakness. uses walker at baseline He is on torsemide for diuresis/HFpEF, 100mg BID - which he is compliant with; last echo in 2017 ~EF 45-50%. Denies fever, chills, chest pain, SOB, palpitation, dizziness, N, V, D, abdominal pain, bladder and bowel problems, focal weakness/paresthesias, leg swelling/pain, rash. No sick contacts or travel. recently started on oxybutynin for urinary incontinence. Allergies: None Past Medical History/PSH: as above Social history: Lives with family. No tobacco, ETOH or drug use. Meds: as documented in EMR Family history: noncontributory PMD: Dr Aguilar Cards: Dr Pastrana Review of systems Constitutional: no fevers or chills. +general weakness HEENT: no headache or dizziness. No congestion. No visual/hearing disturbances. CVS: no cp or syncope. Resp: no sob. No cough. Gastrointestinal: no abdominal pain, nausea, vomiting, diarrhea. Genitourinary: no urinary sx, hematuria. MUSCULOSKELETAL: No joint pain and swelling. No neck or back pain. +leg weakness/falls SKIN: no redness or skin changes, no discharge, no rash. No wounds. Hematologic: no easy bruising/bleeding. NEUROLOGIC: No headache, dizziness, LOC or altered mental status. No focal weakness, numbness or tingling. Psych: no anxiety or depression Allergic/Immunologic: no allergies Endocrine: +hyperglycemia All other systems reviewed and negative, or as documented in HPI. 11/27/19 15:37 11/27/19 15:38 Past History - Medical History Allergies/Adverse Reactions: Allergies Allergy/AdvReac Type Severity Reaction Status Date / Time No Known Drug Allergies Allergy Verified 11/27/19 13:50 Home Medications: Ambulatory Orders Insulin Regular, Human [Humulin R -] 0 - 30 units SQ BID 09/18/14 Levothyroxine [Synthroid -] 50 mcg PO DAILY 02/07/16 Terazosin HCl 2 mg PO BID 02/07/16 Aspirin [ASA -] 81 mg PO DAILY 05/26/16 Insulin (Levemir) [Levemir Vial] 70 units SQ HS 09/19/16 Glipizide/Metformin HCl [Glipizide-Metformin 5-500 mg] 1 each PO DAILY 08/18/17 Torsemide [Demadex -] 100 mg PO BID 08/18/17 Icosapent Ethyl [Vascepa] 1 gm PO DAILY 05/01/19 Isosorbide Mononitrate [Isosorbide Mononitrate ER] 30 mg PO AM 05/01/19 Labetalol HCl [Normodyne -] 200 mg PO DAILY 05/01/19 Nifedipine ER [Procardia XL -] 30 mg PO DAILY 05/01/19 Atorvastatin Ca [Lipitor] 20 mg PO HS tablet 05/02/19 Pregabalin [Lyrica -] 75 mg PO BID 11/27/19 Anemia: No Asthma: No Cancer: No Cardiac Disorders: No CVA: No COPD: No CHF: Yes Dementia: No Diabetes: Yes (OVER 1O YRS) GI Disorders: No Disorders: Yes (BPH) HTN: Yes Hypercholesterolemia: No Liver Disease: No Seizures: No Thyroid Disease: Yes (HYPOTHYROIDISM) - Surgical History Abdominal Surgery: No Appendectomy: No Cardiac Surgery: No Cholecystectomy: No Lung Surgery: No Neurologic Surgery: No Orthopedic Surgery: Yes (BILATERAL TKR 8 AND 10 YEARS AGO) - Immunization History Immunization Up to Date: Yes - Psycho-Social/Smoking History Smoking History: Never smoked Have you smoked in the past 12 months: No - Substance Abuse Hx (Audit-C & DAST Scrn) How often the patient has a drink containing alcohol: Monthly or less Number of drinks the patient has on a typical day: 1 or 2 Score: In Men: 4 or > Positive; In Women: 3 or > Positive: 1 Screen Result (Pos requires Nsg. Audit-10AR): Negative In the last yr the pt used illegal drug/Rx for NonMed reason: No Score: Yes response is considered Positive: 0 Screen Result (Positive result requires Nsg. DAST-10): Negative *Physical Exam - Vital Signs Last Vital Signs Temp Pulse Resp BP Pulse Ox 97.6 F 61 18 101/55 L 97 11/27/19 12:30 11/27/19 12:30 11/27/19 12:30 11/27/19 12:30 11/27/19 12:30 - Physical Exam 11/27/19 14:20 Physical exam General: awake and alert, NAD. HEENT: NCAT, PERRL, EOMI, clear conjunctiva, anicteric, moist mucus membranes, clear oropharynx, no oral lesions.. Neck: neck supple, FROM Resp: CTAB, normal and even respirations, no respiratory distress CVS: RRR, no murmurs, 2+ peripheral pulses throughout, no peripheral edema Abdomen: soft, NTND, no rebound or guarding. Back: nontender, normal inspection and ROM MSK: no edema, OVIEDO x4, ROM intact. No clubbing or cyanosis. normal bulk and tone. Extremities: no calf tenderness Neuro: alert, oriented appropriately to person time place and situation; no focal neurologic deficits, speech clear, gait is slow. Psych: Calm and cooperative Skin: warm and well perfused, cap refill <2 sec, normal color, no rash or skin discoloration. Heart Score/ECG Review #1 ECG reviewed & interpreted by me at: 13:00 General ECG Interpretation: Sinus Rhythm, Normal Rate, Normal Intervals 11/27/19 14:22 EKG normal sinus rhythm 62 bpm, no interval abnormalities, narrow QRS, ST and T wave segments and morphology normal. Nonspecific T wave abnormalities ED Treatment Course - LABORATORY CBC & Chemistry Diagram: 11/27/19 13:21 11/27/19 12:34 - RADIOLOGY Radiology Studies Ordered: Category Date Time Status HEAD CT WITHOUT CONTRAST [CT] Stat CT Scan 11/27/19 12:35 Ordered CHEST X-RAY PORTABLE* [RAD] Stat Radiology 11/27/19 12:36 Ordered Medical Decision Making - Medical Decision Making 11/27/19 12:41 Vital Signs Temp Pulse Resp BP Pulse Ox 97.6 F 61 18 101/55 L 97 11/27/19 12:30 11/27/19 12:30 11/27/19 12:30 11/27/19 12:30 11/27/19 12:30 vitals wnl, normotensive had episode of hypotension at home. DDX. DKA, hyperglycemia, anemia, electrolyte/metabolic derangements, infection, CVA, ICH, mass, dehydration, orthostatics, med side effect, deconditioning. UTI. labs and lytes with EBER on CKD - needs urine lytes/osm. trop neg, reassuring ekg nonischemic no gap, doubt acidotic. CTH no acute pathology, no bleed or cva or abnormalities. cxr is clear, no acute pathology. no pulmonary edema. pt's most likely with EBER on CKD due to overdiuresis, does not appear overloaded/or in CHF clinically; is not having n/v/d, or urinary polyuria/polydipsia. admit, unsafe for discharge, difficulty walking/ambulating. uses walker at baseline pt has EBER on CKD, likely overdiuresis with comorbidities, now BP is soft/low, as well as periods of encephalopathy/frequent falls and Cr elevation 2X/. 11/27/19 15:[address] Monae - cards, agree with plan. hold diuretic (on torsemide 100mg BID), ok with gentle bolus, no further fluids for now. awaiting pt to urinate. nephro cs with Dr Jose, for acute on chronic kidney injury. agree with plan, hydration, likely dry/overdiuresis admitting to Dr Vera Hernandez - gave information. stable for Kwame Vogel admit, pt and family member updated with impression and plan, agreeable 11/27/19 14:16 11/27/19 14:20 11/27/19 15:39 Discharge - Discharge Information Problems reviewed: Yes Clinical Impression/Diagnosis: EBER (acute kidney injury), Uremic encephalopathy, Falls frequently, Medication side effect Condition: Guarded - Admission Yes - Follow up/Referral - Patient Discharge Instructions - Post Discharge Activity
[2019-11-27 13:29] LABS: BASO % 0.5 % (0-2.0); EOS % 4.6 % (0-4.5); HEMATOCRIT 36.8 % (35.4-49); HEMOGLOBIN 11.9 GM/dl (11.7-16.9); LYMPH % 13.7 % (8-40); MCH 28.5 pg (25.7-33.7); MCHC 32.2 g/dl (32.0-35.9); MEAN CELL VOLUME 88.5 fl (80-96); MONO % 4.4 % (3.8-10.2); NEUT % 76.8 % (42.8-82.8); PLATELET COUNT 220 K/MM3 (134-434); RBC 4.16 M/mm3 (4.00-5.60); RDW 14.3 % (11.9-15.9); WHITE BLOOD COUNT 7.3 K/mm3 (4.0-10.8)
[2019-11-27 13:50] LABS: ALBUMIN 4.2 g/dl (3.4-5.0); BILIRUBIN,TOTAL 0.8 mg/dl (0.2-1); CALCIUM 8.9 mg/dl (8.5-10); CREATININE 5.1 mg/dl (0.55-1.3); POTASSIUM 3.5 mmol/L (3.5-5.1)
[2019-11-27] MEDS ORDERED: SODIUM CHLORIDE 0.9% 500 ML INFUS.BAG IV ONE (14:03)
[2019-11-27] MEDS ORDERED: INSULIN (NOVOLOG) ASPART 100 UNITS/ML 10ML VIAL SQ ONE (14:23)
[2019-11-27] MEDS ORDERED: SODIUM CHLORIDE 1,000 ML IV SCH ×2 (14:30→21:58)
[2019-11-27] MEDS ORDERED: INSULIN (NOVOLOG) ASPART 100 UNITS/ML 10ML VIAL ONE ×3 (14:39→14:47)
[2019-11-27] MEDS: INSULIN SLIDING SCALE (NOVOLOG) 1 VIAL SQ SCH ×2 (17:13→21:42)
[2019-11-27 17:38] LABS: EPITHELIAL CELLS FEW /hpf
[2019-11-27] MEDS: HEPARIN NA (PORCINE) 5,000 UNITS/ML 1ML VIAL SQ SCH (21:42)
[2019-11-27] MEDS: ATORVASTATIN CA 20 MG TABLET (FP) PO SCH (21:42)
[2019-11-27] MEDS ORDERED: INSULIN (LEVEMIR) 100 UNITS/ML UNITS SQ SCH (22:00)
--- NOTE | 2019-11-27 22:01 | HP ---
Admitting History and Physical - Primary Care Physician PCP: Rg Solitario - Admission Chief Complaint: Generalized Weakness, Frequent Falls, Unsteady Gait, Confusion History of Present Illness: This is a 84 y/o male with a significant PMHx of CKD stage 4, HFpEF, HTN, T2DM, BPH, Spinal Stenosis, OA. Who presents to the ED with family for lower extremity weakness, frequent falls, unsteady gait and confusion x 3 days. Patient reports falling while trying to get OOB this morning. He denies head trauma or LOC. He reports that his legs felt weak and gave out on him. Patient reports ambulating with a walker at baseline. Per ED records: family notes he has been falling more frequently x several days, where he has fallen in the bathroom and his bedroom to the floor. Family notes he has been confused as well x 3 days with his increased instability and weakness. Patient denies fever, chills, cough, SOB, dizziness, GÓMEZ, CP, palpitations, AP, N/V/D, constipation, melena, hematochezia, hematuria, dysuria. Patient denies sick contacts or recent travel. Patient was recently started on oxybutynin for urinary incontinence. ED course was noted for: (1) Head CT- no acute bleed or mass or fracture. No CT evidence of acute infarct (2) Chest Xray- no acute chest pathology (3) BUN 110 (4) Cr 5.1 (6) Glucose 393 (7) Na 132 History Source: Patient, Family Member Limitations to Obtaining History: No Limitations - Past Medical History Cardiovascular: Yes: CHF, HTN, Hyperlipdemia Pulmonary: Yes: Sleep Apnea Renal/: Yes: Renal Inusuff, BPH Endocrine: Yes: Diabetes Mellitus, Hypothyroidism - Past Surgical History Past Surgical History: Yes: Hernia Repair, Joint Replacement (B/L Knee and Rt Hip) - Advance Directives Advance Directives: Yes: Living Will, Health Care Proxy - Smoking History Smoking history: Never smoked Have you smoked in the past 12 months: No - Alcohol/Substance Use Hx Alcohol Use: Yes (rarely) History of Substance Use: reports: None - Social History Usual Living Arrangement: Yes: With Spouse ADL: Family Assistance Occupation: Retired History of Recent Travel: No Home Medications - Allergies Allergies/Adverse Reactions: Allergies Allergy/AdvReac Type Severity Reaction Status Date / Time No Known Drug Allergies Allergy Verified 11/27/19 13:50 - Home Medications Home Medications: Ambulatory Orders Insulin Regular, Human [Humulin R -] 0 - 30 units SQ BID 09/18/14 Levothyroxine [Synthroid -] 50 mcg PO DAILY 02/07/16 Terazosin HCl 2 mg PO BID 02/07/16 Aspirin [ASA -] 81 mg PO DAILY 05/26/16 Insulin (Levemir) [Levemir Vial] 70 units SQ HS 09/19/16 Glipizide/Metformin HCl [Glipizide-Metformin 5-500 mg] 1 each PO DAILY 08/18/17 Torsemide [Demadex -] 100 mg PO BID 08/18/17 Icosapent Ethyl [Vascepa] 1 gm PO DAILY 05/01/19 Isosorbide Mononitrate [Isosorbide Mononitrate ER] 30 mg PO AM 05/01/19 Labetalol HCl [Normodyne -] 200 mg PO DAILY 05/01/19 Nifedipine ER [Procardia XL -] 30 mg PO DAILY 05/01/19 Atorvastatin Ca [Lipitor] 20 mg PO HS tablet 05/02/19 Pregabalin [Lyrica -] 75 mg PO BID 11/27/19 Family Medical History Family History: Unremarkable Review of Systems - Review of Systems Constitutional: reports: Weakness Eyes: reports: No Symptoms HENT: reports: No Symptoms Neck: reports: No Symptoms Cardiovascular: reports: No Symptoms Respiratory: reports: No Symptoms Gastrointestinal: reports: No Symptoms Genitourinary: reports: No Symptoms Breasts: reports: No Symptoms Reported Musculoskeletal: reports: Muscle Weakness Integumentary: reports: No Symptoms Neurological: reports: Confusion, Unsteady Gait, Weakness Endocrine: reports: No Symptoms Hematology/Lymphatic: reports: No Symptoms Psychiatric: reports: No Symptoms Physical Examination Vital Signs: Vital Signs Temperature 97.6 F 11/27/19 15:43 Pulse Rate 60 11/27/19 15:43 Respiratory Rate 16 11/27/19 20:38 Blood Pressure 129/91 11/27/19 15:43 O2 Sat by Pulse Oximetry (%) 96 11/27/19 20:38 Constitutional: Yes: No Distress, Calm Eyes: Yes: WNL, Conjunctiva Clear, EOM Intact, PERRL HENT: Yes: Atraumatic, Normocephalic, Other (dry mucous membranes) Neck: Yes: Supple, Trachea Midline Cardiovascular: Yes: Regular Rate and Rhythm, S1, S2 Respiratory: Yes: Regular, CTA Bilaterally Gastrointestinal: Yes: Normal Bowel Sounds, Soft. No: Tenderness, Tenderness, Epigastrium ...Rectal Exam: Yes: Deferred Renal/: Yes: WNL Breast(s): Yes: WNL Musculoskeletal: Yes: Back Pain Extremities: Yes: WNL Edema: No Peripheral Pulses WNL: Yes Integumentary: Yes: Pressure Ulcer Wound/Incision: Yes: Reddened Neurological: Yes: Alert, Oriented, Cran Nerves II-XII Intact, Tremors (upper extremities), Weakness (b/l LE) ...Motor Strength: WNL Psychiatric: Yes: Alert, Oriented Labs: CBC, BMP 11/27/19 13:21 11/27/19 12:34 Laboratory Results - last 24 hr 11/27/19 11/27/19 11/27/19 12:34 12:34 13:21 WBC 7.3 RBC 4.16 Hgb 11.9 Hct 36.8 MCV 88.5 MCH 28.5 MCHC 32.2 RDW 14.3 Plt Count 220 D MPV 9.0 Absolute Neuts (auto) 5.7 Neutrophils % 76.8 Lymphocytes % 13.7 D Monocytes % 4.4 Eosinophils % 4.6 H Basophils % 0.5 Sodium 132 L Potassium 3.5 Chloride 84 L Carbon Dioxide 26 Anion Gap 22 H BUN 110.0 H* Creatinine 5.1 H Est GFR (CKD-EPI)AfAm 11.20 Est GFR (CKD-EPI)NonAf 9.67 Random Glucose 393 H Serum Osmolality Calcium 8.9 Total Bilirubin 0.8 AST 24 ALT 32 Alkaline Phosphatase 97 Creatine Kinase 720 H Creatine Kinase Index 1.9 CK-MB (CK-2) 14.0 H Troponin I 0.04 Total Protein 7.0 Albumin 4.2 Urine Color Urine Appearance Urine pH Urine Protein Urine Glucose (UA) Urine Ketones Urine Blood Urine Nitrite Urine Bilirubin Urine Urobilinogen Ur Leukocyte Esterase Urine RBC Urine WBC Ur Transition Epith Cell Urine Bacteria Urine Osmolality Ur Random Creatinine U Random Total Protein Ur Random Sodium 11/27/19 11/27/19 11/27/19 17:19 17:22 17:22 WBC RBC Hgb Hct MCV MCH MCHC RDW Plt Count MPV Absolute Neuts (auto) Neutrophils % Lymphocytes % Monocytes % Eosinophils % Basophils % Sodium Potassium Chloride Carbon Dioxide Anion Gap BUN Creatinine Est GFR (CKD-EPI)AfAm Est GFR (CKD-EPI)NonAf Random Glucose Serum Osmolality Calcium Total Bilirubin AST ALT Alkaline Phosphatase Creatine Kinase Creatine Kinase Index CK-MB (CK-2) Troponin I Total Protein Albumin Urine Color Yellow Urine Appearance Clear Urine pH 5.0 Urine Protein 1+ H Urine Glucose (UA) Trace Urine Ketones Negative Urine Blood Trace-intact Urine Nitrite Negative Urine Bilirubin Negative Urine Urobilinogen 0.2 Ur Leukocyte Esterase Negative Urine RBC 2-5 Urine WBC 0-2 Ur Transition Epith Cell Few Urine Bacteria Rare Urine Osmolality 341 Ur Random Creatinine U Random Total Protein 42.2 H Ur Random Sodium 50 11/27/19 11/27/19 17:22 17:24 WBC RBC Hgb Hct MCV MCH MCHC RDW Plt Count MPV Absolute Neuts (auto) Neutrophils % Lymphocytes % Monocytes % Eosinophils % Basophils % Sodium Potassium Chloride Carbon Dioxide Anion Gap BUN Creatinine Est GFR (CKD-EPI)AfAm Est GFR (CKD-EPI)NonAf Random Glucose Serum Osmolality 332 H Calcium Total Bilirubin AST ALT Alkaline Phosphatase Creatine Kinase Creatine Kinase Index CK-MB (CK-2) Troponin I Total Protein Albumin Urine Color Urine Appearance Urine pH Urine Protein Urine Glucose (UA) Urine Ketones Urine Blood Urine Nitrite Urine Bilirubin Urine Urobilinogen Ur Leukocyte Esterase Urine RBC Urine WBC Ur Transition Epith Cell Urine Bacteria Urine Osmolality Ur Random Creatinine 92.8 U Random Total Protein Ur Random Sodium Intake & Output 11/25/19 11/26/19 11/27/19 11/28/19 23:59 23:59 23:59 23:59 Intake Total 300 Output Total 600 500 Balance -300 -500 Weight 97.522 kg Current Medications Generic Name Dose Route Start Last Admin Trade Name Freq PRN Reason Stop Dose Admin Aspirin 81 mg 11/28/19 10:00 Asa - PO DAILY DORA Atorvastatin Calcium 20 mg 11/27/19 22:00 11/27/19 21:42 Lipitor - PO 20 mg HS DORA Administration Heparin Sodium (Porcine) 5,000 unit 11/27/19 22:00 11/27/19 21:42 Heparin - SQ 5,000 unit BID DORA Administration Sodium Chloride 1,000 mls @ 42 mls/hr 11/27/19 21:58 Normal Saline - IV ASDIR DORA Insulin Aspart 1 vial 11/27/19 16:30 11/27/19 21:42 Novolog Vial Sliding Scale - SQ 6 units ACHS DORA Administration Protocol Labetalol HCl 200 mg 11/28/19 10:00 Normodyne - PO DAILY DORA Levothyroxine Sodium 50 mcg 11/28/19 07:00 Synthroid - PO ACBK DORA [id number] Ethyl Esters 1 gm 11/28/19 10:00 Lovaza - PO DAILY DORA Imaging - Results Chest X-ray: Report Reviewed, Image Reviewed Cat Scan: Report Reviewed, Image Reviewed Ultrasound: Pending EKG: Image Reviewed Problem List - Problems (1) Generalized weakness Assessment/Plan: Likely secondary to dehydration vs advancing age Head CT- neg ICH, mass or lesion Na 132 Appreciate Neurology consult Gentle IVF Monitor CBC, CMP PT eval Monitor vitals Fall Precautions Consider STR Code(s): R53.1 - WEAKNESS (2) Acute metabolic encephalopathy Assessment/Plan: Head CT reviewed Appreciate Neurology consult Neurochecks Fall Precautions Code(s): G93.41 - METABOLIC ENCEPHALOPATHY (3) Acute kidney injury superimposed on chronic kidney disease Assessment/Plan: Likely secondary to Over Diuresis Cr 5.1 (1.6-3.1) NS bolus given in ED Continue gentle IVF- monitor closely for fluid overload Appreciate Nephrology consult Renal US Avoid Nephrotoxic drugs Monitor CBC, CMP Monitor vitals Hold ACEi, ARB for now Code(s): N17.9 - ACUTE KIDNEY FAILURE, UNSPECIFIED; N18.9 - CHRONIC KIDNEY DISEASE, UNSPECIFIED (4) Falls frequently Assessment/Plan: Head CT- neg ICH Continue Fall Precautions Monitor vitals PT eval Code(s): R29.6 - REPEATED FALLS (5) Hyponatremia Assessment/Plan: Likely secondary to Medication Na Deficit 370 NS bolus given in ED Gentle IVF Urine Osmo 341 Urine Creatinine 92.8 Urine Protein 42.2 Urine Na 50 Monitor CMP Code(s): E87.1 - HYPO-OSMOLALITY AND HYPONATREMIA (6) Diabetes Assessment/Plan: sub optimal BGMs- nurse to monitor pt's Free [employer] Esther readings ISS Appreciate Endocrinology consult CMP, HgbA1c in am Code(s): E11.9 - TYPE 2 DIABETES MELLITUS WITHOUT COMPLICATIONS Qualifiers: Diabetes mellitus type: type 2 (7) Diastolic congestive heart failure Assessment/Plan: stable No acute flare Echo 04/2016- EF 45-50% lv-mild dilated, mild-mod mr, mild tr, mild as Chest Xray- no infiltrate no effusion Hold Torsemide secondary to EBER Appreciate Cardiology consult Strict INOs Daily weight Monitor CMP Code(s): I50.30 - UNSPECIFIED DIASTOLIC (CONGESTIVE) HEART FAILURE Qualifiers: Qualified Code(s): I50.33 - Acute on chronic diastolic (congestive) heart failure (8) HTN (hypertension) Assessment/Plan: stable Monitor BP Continue labetolol with parameters Hold ACEi, ARB secodnary to EBER Monitor renal function Code(s): I10 - ESSENTIAL (PRIMARY) HYPERTENSION (9) Dyslipidemia Assessment/Plan: stable Continue Lipitor, [place] 3 Monitor LFTs Code(s): E78.5 - HYPERLIPIDEMIA, UNSPECIFIED (10) Hypothyroid Assessment/Plan: stable Continue Levothyroxine Code(s): E03.9 - HYPOTHYROIDISM, UNSPECIFIED Qualifiers: Hypothyroidism type: acquired Qualified Code(s): E03.9 - Hypothyroidism, unspecified (11) BPH (benign prostatic hyperplasia) Assessment/Plan: stable Hold Terazosin 2/2 weakness Continue to monitor Code(s): N40.0 - BENIGN PROSTATIC HYPERPLASIA WITHOUT LOWER URINRY TRACT SYMP (12) Encounter for screening laboratory testing for COVID-19 virus Assessment/Plan: Low Risk COVID PCR-pending Isolation Precautions Code(s): Z11.59 - ENCOUNTER FOR SCREENING FOR OTHER VIRAL DISEASES Assessment/Plan This is a 84 y/o male with a significant PMHx of CKD stage 4, HFpEF, HTN, T2DM, BPH, Spinal Stenosis, OA. Admitted to [facility] for Acute metabolic Encephalopathy, Acute on Chronic Kidney Disease, Generalized Weakness for further evaluation of their emergent condition. Plan: See Problem List FEN gentle IVF, monitor closely Replete lytes prn Low Na, Diabetic Diet DVT ppx OOB SCDs Heparin SQ Code Status: Full Code, Living Will, HCP Dispo: Requires Inpatient Care Visit type - Medication Review Med list reviewed for High Risk Meds patients 65 and older: Yes - Emergency Visit Emergency Visit: Yes ED Registration Date: 11/27/19 Care time: The patient presented to the Emergency Department on the above date and was hospitalized for further evaluation of their emergent condition. - New Patient This patient is new to me today: Yes Date on this admission: 11/27/19 - Critical Care Critical Care patient: No
[2019-11-28] MEDS: LEVOTHYROXINE NA 50 MCG TABLET (FP) PO SCH (06:32)
[2019-11-28] MEDS: INSULIN SLIDING SCALE (NOVOLOG) 1 VIAL SQ SCH ×4 (06:33→21:33)
[2019-11-28 08:34] LABS: BASO % 0.5 % (0-2.0); EOS % 8.4 % (0-4.5); HEMATOCRIT 33.8 % (35.4-49); HEMOGLOBIN 11.2 GM/dl (11.7-16.9); MCH 28.7 pg (25.7-33.7); MCHC 33.2 g/dl (32.0-35.9); MEAN CELL VOLUME 86.4 fl (80-96); MEAN PLT VOLUME 9.1 fl (7.5-11.1); MONO % 6.7 % (3.8-10.2); NEUT % 59.4 % (42.8-82.8); PLATELET COUNT 196 K/MM3 (134-434); RBC 3.91 M/mm3 (4.00-5.60); RDW 13.8 % (11.9-15.9); WHITE BLOOD COUNT 6.3 K/mm3 (4.0-10.8)
[2019-11-28 08:42] LABS: ALBUMIN 3.8 g/dl (3.4-5.0); BILIRUBIN,TOTAL 0.5 mg/dl (0.2-1); CALCIUM 8.4 mg/dl (8.5-10); CREATININE 4.6 mg/dl (0.55-1.3); MAGNESIUM 2.1 mg/dL (1.8-2.4); TOT PROT 6.4 g/dl (6.4-8.2)
[2019-11-28 08:46] LABS: POTASSIUM 2.5 mmol/L (3.5-5.1)
[2019-11-28] MEDS ORDERED: POTASSIUM CHLORIDE TABS 20 MEQ TABLET.ER (FP) PO ONE ×2 (08:58→13:00)
[2019-11-28] MEDS: HEPARIN NA (PORCINE) 5,000 UNITS/ML 1ML VIAL SQ SCH ×2 (09:19→21:31)
[2019-11-28] MEDS: LABETALOL HCL 200 MG TABLET (FP) PO SCH (09:20)
[2019-11-28] MEDS: ASPIRIN 81 MG CHEWABLE TABLETS PO SCH (09:20)
[2019-11-28] MEDS: OMEGA-3 ACID ETHYL ESTERS (FATTY-ACIDS) 1 GM CAPSULE (FP) PO SCH (09:20)
--- NOTE | 2019-11-28 09:31 | CONSULT ---
Consult Consult Specialty:: Nephrology Reason for Consultation:: EBER - History of Present Illness Chief Complaint: frequent falls History of Present Illness: Pt is an 84 year old gentleman with pmhx of ckd, chf, htn, DM, BPH, spinal stenosis, and IA who presents to the ER with confusion and frequent falls. He was found to be in acute renal failure. He has history of CKD. He was on torsemide 100 mg per day. He denies dysuria or hematuria. He denies fevers or chills. He was able to give history. He denies shortness of breath. He denies nsaid use. His renal function did improve with hydration. - History Source History Provided By: Patient - Past Medical History Cardio/Vascular: Yes: CHF, HTN, Hyperlipdemia Pulmonary: Yes: Sleep Apnea Renal/: Yes: Renal Inusuff, BPH Endocrine: Yes: Diabetes Mellitus, Hypothyroidism - Past Surgical History Past Surgical History: Yes: Hernia Repair, Joint Replacement (B/L Knee and Rt Hip) - Alcohol/Substance Use Hx Alcohol Use: Yes (rarely) History of Substance Use: reports: None - Smoking History Smoking history: Never smoked Have you smoked in the past 12 months: No - Social History ADL: Family Assistance Occupation: Retired History of Recent Travel: No Home Medications - Allergies Allergies/Adverse Reactions: Allergies Allergy/AdvReac Type Severity Reaction Status Date / Time No Known Drug Allergies Allergy Verified 11/27/19 13:50 - Home Medications Home Medications: Ambulatory Orders Insulin Regular, Human [Humulin R -] 0 - 30 units SQ BID 09/18/14 Levothyroxine [Synthroid -] 50 mcg PO DAILY 02/07/16 Terazosin HCl 2 mg PO BID 02/07/16 Aspirin [ASA -] 81 mg PO DAILY 05/26/16 Insulin (Levemir) [Levemir Vial] 70 units SQ HS 09/19/16 Glipizide/Metformin HCl [Glipizide-Metformin 5-500 mg] 1 each PO DAILY 08/18/17 Torsemide [Demadex -] 100 mg PO BID 08/18/17 Icosapent Ethyl [Vascepa] 1 gm PO DAILY 05/01/19 Isosorbide Mononitrate [Isosorbide Mononitrate ER] 30 mg PO AM 05/01/19 Labetalol HCl [Normodyne -] 200 mg PO DAILY 05/01/19 Nifedipine ER [Procardia XL -] 30 mg PO DAILY 05/01/19 Atorvastatin Ca [Lipitor] 20 mg PO HS tablet 05/02/19 Pregabalin [Lyrica -] 75 mg PO BID 11/27/19 Family Medical History Family Hx Cardiac Disorders: Father (HTN) Family Hx Diabetes: Mother Review of Systems - Review of Systems Constitutional: reports: No Symptoms Eyes: reports: No Symptoms HENT: reports: No Symptoms Neck: reports: No Symptoms Cardiovascular: reports: No Symptoms Respiratory: reports: No Symptoms Gastrointestinal: reports: No Symptoms Genitourinary: reports: No Symptoms Musculoskeletal: reports: No Symptoms Integumentary: reports: No Symptoms Neurological: reports: No Symptoms Endocrine: reports: No Symptoms Hematology/Lymphatic: reports: No Symptoms Physical Exam Vital Signs: Vital Signs Temperature 97.9 F 11/28/19 06:00 Pulse Rate 60 11/28/19 06:00 Respiratory Rate 18 11/28/19 07:27 Blood Pressure 164/55 L 11/28/19 06:00 O2 Sat by Pulse Oximetry (%) 99 11/28/19 07:27 Constitutional: Yes: Calm Eyes: Yes: Conjunctiva Clear HENT: Yes: Atraumatic Cardiovascular: Yes: S1, S2 Respiratory: Yes: CTA Bilaterally Gastrointestinal: Yes: Normal Bowel Sounds, Soft Renal/: Yes: WNL Musculoskeletal: Yes: WNL Edema: No Neurological: Yes: Oriented Psychiatric: Yes: Oriented Labs: CBC, BMP 11/28/19 06:50 11/28/19 06:50 Imaging - Results Chest X-ray: Report Reviewed Ultrasound: Report Reviewed Problem List - Problems (1) EBER (acute kidney injury) Code(s): N17.9 - ACUTE KIDNEY FAILURE, UNSPECIFIED (2) Hyponatremia Code(s): E87.1 - HYPO-OSMOLALITY AND HYPONATREMIA Assessment/Plan Current Medications Generic Name Dose Route Start Last Admin Trade Name Freq PRN Reason Stop Dose Admin Aspirin 81 mg 11/28/19 10:00 11/28/19 09:20 Asa - PO 81 mg DAILY DORA Administration Atorvastatin Calcium 20 mg 11/27/19 22:00 11/27/19 21:42 Lipitor - PO 20 mg HS DORA Administration Heparin Sodium (Porcine) 5,000 unit 11/27/19 22:00 11/28/19 09:19 Heparin - SQ 5,000 unit BID DORA Administration Sodium Chloride 1,000 mls @ 42 mls/hr 11/27/19 21:58 Normal Saline - IV ASDIR DORA Potassium Chloride 10 meq in 100 mls @ 100 mls/hr 11/28/19 09:30 Potassium Chloride 10 Meq Premix Ivpb - IVPB 11/28/19 12:29 Q60M DORA Insulin Aspart 1 vial 11/27/19 16:30 11/28/19 06:33 Novolog Vial Sliding Scale - SQ Not Given ACHS [facility] Protocol Labetalol HCl 200 mg 11/28/19 10:00 11/28/19 09:20 Normodyne - PO 200 mg DAILY DORA Administration Levothyroxine Sodium 50 mcg 11/28/19 07:00 11/28/19 06:32 Synthroid - PO 50 mcg ACBK DORA Administration [id number] Ethyl Esters 1 gm 11/28/19 10:00 11/28/19 09:20 Lovaza - PO 1 gm DAILY DORA Administration Impression 1. EBER 2. ckd 3. chf 4. hypokalemia 5. s/p fall 6. mild rhabdo 7. hyponatremia 8. hypothyroidism 9. left lower pole possible cyst 10. htn Plan - replace potassium - renal function is improving with fluids - will cont gentle hydration - hold torsemide - spoke to cardio for follow up and discussed plan - will need further imaging of renal cyst once stable, can follow with urology as outpt as well - monitor bp - discussed with medical team - will likely need a lower dose of diuretics once restarted - kidneys echogenic and compatible with ckd - monitor cpk, was mildly elevated - mental status appears to have improved
[2019-11-28] MEDS: KCL 10 MEQ IVPB 10 MEQ/100 ML INFUS.BAG IVPB SCH ×3 (09:56→19:30)
--- NOTE | 2019-11-28 10:21 | CONSULT ---
Consult Consult Specialty:: Endocrinology Referred by:: Karla Cornejo Reason for Consultation:: Hyperglycemia - History of Present Illness Chief Complaint: Weakness, fall History of Present Illness: This is a 84 y/o male with h/oCKD stage 4, HTN, T2DM for about 15 years, on Insulin for about 12 years, , BPH, Spinal Stenosis, OA. Who presented to the ED with family for lower extremity weakness, frequent falls, unsteady gait and confusion x 3 days. Patient reported falling while trying to get OOB this morning. He denied head trauma or LOC. ED course was noted for: Head CT- no acute bleed or mass or fracture. No CT evidence of acute infarct, BUN 110, Cr 5.1, Glucose 393, Na 132. Pt says he was taking Levemir 20 in the morning and 80 and at night. Was prescribed Humulin to be taken with food which he seldom does. BGM has been ranging from 200 to 300 with occasional 100 on review of [employer] jackie reader he is using. - History Source History Provided By: Patient, Medical Record - Past Medical History Cardio/Vascular: Yes: CHF, HTN, Hyperlipdemia Pulmonary: Yes: Sleep Apnea Renal/: Yes: Renal Inusuff, BPH Endocrine: Yes: Diabetes Mellitus, Hypothyroidism - Past Surgical History Past Surgical History: Yes: Hernia Repair, Joint Replacement (B/L Knee and Rt Hip) - Alcohol/Substance Use Hx Alcohol Use: Yes (rarely) History of Substance Use: reports: None - Smoking History Smoking history: Never smoked Have you smoked in the past 12 months: No - Social History ADL: Family Assistance Occupation: Retired History of Recent Travel: No Home Medications - Allergies Allergies/Adverse Reactions: Allergies Allergy/AdvReac Type Severity Reaction Status Date / Time No Known Drug Allergies Allergy Verified 11/27/19 13:50 - Home Medications Home Medications: Ambulatory Orders Insulin Regular, Human [Humulin R -] 0 - 30 units SQ BID 09/18/14 Levothyroxine [Synthroid -] 50 mcg PO DAILY 02/07/16 Terazosin HCl 2 mg PO BID 02/07/16 Aspirin [ASA -] 81 mg PO DAILY 05/26/16 Insulin (Levemir) [Levemir Vial] 70 units SQ HS 09/19/16 Glipizide/Metformin HCl [Glipizide-Metformin 5-500 mg] 1 each PO DAILY 08/18/17 Torsemide [Demadex -] 100 mg PO BID 08/18/17 Icosapent Ethyl [Vascepa] 1 gm PO DAILY 05/01/19 Isosorbide Mononitrate [Isosorbide Mononitrate ER] 30 mg PO AM 05/01/19 Labetalol HCl [Normodyne -] 200 mg PO DAILY 05/01/19 Nifedipine ER [Procardia XL -] 30 mg PO DAILY 05/01/19 Atorvastatin Ca [Lipitor] 20 mg PO HS tablet 05/02/19 Pregabalin [Lyrica -] 75 mg PO BID 11/27/19 Family Medical History Family Hx Cardiac Disorders: Father (HTN) Family Hx Diabetes: Mother Review of Systems - Review of Systems Constitutional: reports: Weakness Eyes: reports: No Symptoms HENT: reports: No Symptoms Neck: reports: No Symptoms Cardiovascular: reports: No Symptoms Respiratory: reports: No Symptoms Gastrointestinal: reports: No Symptoms Musculoskeletal: reports: No Symptoms Neurological: reports: Weakness Endocrine: reports: No Symptoms Physical Exam Vital Signs: Vital Signs Temperature 97.9 F 11/28/19 06:00 Pulse Rate 60 11/28/19 06:00 Respiratory Rate 18 11/28/19 07:27 Blood Pressure 164/55 L 11/28/19 06:00 O2 Sat by Pulse Oximetry (%) 99 11/28/19 07:27 Constitutional: Yes: No Distress, Calm Eyes: Yes: Conjunctiva Clear, EOM Intact HENT: Yes: Atraumatic, Normocephalic Neck: Yes: Supple, Trachea Midline Cardiovascular: Yes: Regular Rate and Rhythm Respiratory: Yes: Regular, CTA Bilaterally Gastrointestinal: Yes: Normal Bowel Sounds, Soft Musculoskeletal: Yes: WNL Extremities: Yes: WNL Edema: No Neurological: Yes: Alert Labs: CBC, BMP 11/28/19 06:50 11/28/19 06:50 Assessment/Plan AP: T2DM Weakness HTN CHF CKD Hypothyroidism Diet discussed Discussed need to take premeal Insulin as prescribed to control blood sugar Monitor blood glucose Start Levemir 10 units BID Novolog SS coverage Adjust Insulin dose according to blood glucose LT4 50mcg QD Atorvastatin 20mg Labs for TSH A1c pending
[2019-11-28] MEDS: INSULIN (LEVEMIR) 100 UNITS/ML UNITS SQ SCH ×2 (10:45→21:32)
--- NOTE | 2019-11-28 11:21 | EKG ---
Test Reason : Blood Pressure : / mmHG Vent. Rate : 062 BPM Atrial Rate : 062 BPM P-R Int : 190 ms QRS Dur : 088 ms QT Int : 456 ms P-R-T Axes : 000 -43 -23 degrees QTc Int : 462 ms NORMAL SINUS RHYTHM LEFT AXIS DEVIATION MODERATE VOLTAGE CRITERIA FOR LVH, MAY BE NORMAL VARIANT ABNORMAL ECG WHEN COMPARED WITH ECG OF 01-MAY-2019 00:36, NO SIGNIFICANT CHANGE WAS FOUND Confirmed by LIZA FRANCIS, ERNESTO ([id number]) on 11/28/2019 11:21:21 AM Referred By: MELE GONZALEZ Confirmed By:ERNESTO DE JESUS MD
[2019-11-28 16:34] LABS: CALCIUM 8.5 mg/dl (8.5-10); CREATININE 4.4 mg/dl (0.55-1.3); POTASSIUM 3.5 mmol/L (3.5-5.1)
--- NOTE | 2019-11-28 16:41 | PN ---
Physical Exam: SUBJECTIVE: Patient seen and examined. Feeling better, mental status greatly improved. OBJECTIVE: Hypokalemic at 2.5. Vital Signs Period Temp Pulse Resp BP Sys/Eisenberg Pulse Ox Last 24 Hr 97.9 F-98.3 F 60-72 16-20 164-190/55-73 95-99 GENERAL: The patient is awake, alert, and fully oriented, in no acute distress. HEAD: Normal with no signs of trauma. EYES: PERRL, extraocular movements intact, sclera anicteric, conjunctiva clear. No ptosis. ENT: Ears normal, nares patent, oropharynx clear without exudates, moist mucous membranes. NECK: Trachea midline, full range of motion, supple. LUNGS: Breath sounds equal, clear to auscultation bilaterally, no wheezes, no crackles, no accessory muscle use. HEART: Regular rate and rhythm, S1, S2 without murmur, rub or gallop. ABDOMEN: Soft, nontender, nondistended, normoactive bowel sounds, no guarding, no rebound, no hepatosplenomegaly, no masses. EXTREMITIES: 2+ pulses, warm, well-perfused, no edema. NEUROLOGICAL: Cranial nerves II through XII grossly intact. Normal speech, gait not observed. PSYCH: Normal mood, normal affect. SKIN: Warm, dry, normal turgor, no rashes or lesions noted Laboratory Results - last 24 hr 11/27/19 11/27/19 11/27/19 14:33 17:19 17:22 WBC RBC Hgb Hct MCV MCH MCHC RDW Plt Count MPV Absolute Neuts (auto) Neutrophils % Lymphocytes % Monocytes % Eosinophils % Basophils % Sodium Potassium Chloride Carbon Dioxide Anion Gap BUN Creatinine Est GFR (CKD-EPI)AfAm Est GFR (CKD-EPI)NonAf Random Glucose Hemoglobin A1c % Serum Osmolality Calcium Magnesium Total Bilirubin AST ALT Alkaline Phosphatase Total Protein Albumin Urine Color Yellow Urine Appearance Clear Urine pH 5.0 Urine Protein 1+ H Urine Glucose (UA) Trace Urine Ketones Negative Urine Blood Trace-intact Urine Nitrite Negative Urine Bilirubin Negative Urine Urobilinogen 0.2 Ur Leukocyte Esterase Negative Urine RBC 2-5 Urine WBC 0-2 Ur Transition Epith Cell Few Urine Bacteria Rare Urine Osmolality Ur Random Creatinine U Random Total Protein 42.2 H Ur Random Sodium COVID-19 (MARK) Not detected 11/27/19 11/27/19 11/27/19 17:22 17:22 17:24 WBC RBC Hgb Hct MCV MCH MCHC RDW Plt Count MPV Absolute Neuts (auto) Neutrophils % Lymphocytes % Monocytes % Eosinophils % Basophils % Sodium Potassium Chloride Carbon Dioxide Anion Gap BUN Creatinine Est GFR (CKD-EPI)AfAm Est GFR (CKD-EPI)NonAf Random Glucose Hemoglobin A1c % Serum Osmolality 332 H Calcium Magnesium Total Bilirubin AST ALT Alkaline Phosphatase Total Protein Albumin Urine Color Urine Appearance Urine pH Urine Protein Urine Glucose (UA) Urine Ketones Urine Blood Urine Nitrite Urine Bilirubin Urine Urobilinogen Ur Leukocyte Esterase Urine RBC Urine WBC Ur Transition Epith Cell Urine Bacteria Urine Osmolality 341 Ur Random Creatinine 92.8 U Random Total Protein Ur Random Sodium 50 COVID-19 (MARK) 11/28/19 11/28/19 11/28/19 06:50 06:50 06:50 WBC 6.3 RBC 3.91 L Hgb 11.2 L Hct 33.8 L MCV 86.4 MCH 28.7 MCHC 33.2 RDW 13.8 Plt Count 196 MPV 9.1 Absolute Neuts (auto) 3.8 Neutrophils % 59.4 D Lymphocytes % 25.0 D Monocytes % 6.7 Eosinophils % 8.4 H D Basophils % 0.5 Sodium 137 Potassium 2.5 L* Chloride 90 L Carbon Dioxide 30 Anion Gap 17 H BUN 101.0 H Creatinine 4.6 H Est GFR (CKD-EPI)AfAm 12.69 Est GFR (CKD-EPI)NonAf 10.95 Random Glucose 150 H Hemoglobin A1c % 10.0 H Serum Osmolality Calcium 8.4 L Magnesium 2.1 Total Bilirubin 0.5 AST 20 ALT 24 Alkaline Phosphatase 74 D Total Protein 6.4 Albumin 3.8 Urine Color Urine Appearance Urine pH Urine Protein Urine Glucose (UA) Urine Ketones Urine Blood Urine Nitrite Urine Bilirubin Urine Urobilinogen Ur Leukocyte Esterase Urine RBC Urine WBC Ur Transition Epith Cell Urine Bacteria Urine Osmolality Ur Random Creatinine U Random Total Protein Ur Random Sodium COVID-19 (MARK) 11/28/19 15:56 WBC RBC Hgb Hct MCV MCH MCHC RDW Plt Count MPV Absolute Neuts (auto) Neutrophils % Lymphocytes % Monocytes % Eosinophils % Basophils % Sodium 133 L Potassium 3.5 Chloride 89 L Carbon Dioxide 28 Anion Gap 16 BUN 101.0 H Creatinine 4.4 H Est GFR (CKD-EPI)AfAm 13.39 Est GFR (CKD-EPI)NonAf 11.55 Random Glucose 403 H* Hemoglobin A1c % Serum Osmolality Calcium 8.5 Magnesium Total Bilirubin AST ALT Alkaline Phosphatase Total Protein Albumin Urine Color Urine Appearance Urine pH Urine Protein Urine Glucose (UA) Urine Ketones Urine Blood Urine Nitrite Urine Bilirubin Urine Urobilinogen Ur Leukocyte Esterase Urine RBC Urine WBC Ur Transition Epith Cell Urine Bacteria Urine Osmolality Ur Random Creatinine U Random Total Protein Ur Random Sodium COVID-19 (MARK) Active Medications Generic Name Dose Route Start Last Admin Trade Name Meggan PRN Reason Stop Dose Admin Aspirin 81 mg 11/28/19 10:00 11/28/19 09:20 Asa - PO 81 mg DAILY DORA Administration Atorvastatin Calcium 20 mg 11/27/19 22:00 11/27/19 21:42 Lipitor - PO 20 mg HS DORA Administration Heparin Sodium (Porcine) 5,000 unit 11/27/19 22:00 11/28/19 09:19 Heparin - SQ 5,000 unit BID DORA Administration Sodium Chloride 1,000 mls @ 42 mls/hr 11/27/19 21:58 Normal Saline - IV ASDIR DORA Insulin Aspart 1 vial 11/28/19 11:00 Novolog Vial Sliding Scale - SQ TIDAC DORA Protocol Insulin Aspart 1 vial 11/28/19 22:00 Novolog Vial Sliding Scale - SQ HS [facility] Protocol Insulin Detemir 10 units 11/28/19 10:45 Levemir Vial SQ 0700,2200 DORA Labetalol HCl 200 mg 11/28/19 10:00 11/28/19 09:20 Normodyne - PO 200 mg DAILY DORA Administration Levothyroxine Sodium 50 mcg 11/28/19 07:00 11/28/19 06:32 Synthroid - PO 50 mcg ACBK DORA Administration Ukvop-5-Jeii Ethyl Esters 1 gm 11/28/19 10:00 11/28/19 09:20 Lovaza - PO 1 gm DAILY DORA Administration Sodium Bicarbonate 1 meq 11/28/19 15:30 Neut 4% Injection - IV 11/28/19 17:31 Q1H [facility] ASSESSMENT/PLAN: Problems #EBER-on-CKD -Likely secondary to over-diuresis -Hold Torsemide #Encephalopathy -HCT: No acute process -Improved -Fall precautions #HTN -Resume Procardia, labetolol #DM -Seen by endo - started on Levemir bid Continue Novolog sliding scale Diabetic diet #dCHF stable No acute flare Echo 04/2016- EF 45-50% lv-mild dilated, mild-mod mr, mild tr, mild as Chest Xray- no infiltrate no effusion Hold Torsemide secondary to EBER Appreciate Cardiology consult Strict INOs Daily weight #Dyslipidemia stable Continue Lipitor, [place] 3 #Hypothyroidism -Stable -Continue levothyroxine #COVID testing -Negative #F/E/N -Continue NS @ 40 mLs/hr -Replete K with 10 mEq IVPB x 3, 40 mEq PO #Ppx -Sqh -PT Code Status: Full Code, Living Will, HCP Dispo: Requires Inpatient Care Visit type - Emergency Visit Emergency Visit: Yes ED Registration Date: 11/27/19 Care time: The patient presented to the Emergency Department on the above date and was hospitalized for further evaluation of their emergent condition. - New Patient This patient is new to me today: Yes Date on this admission: 11/29/19 - Critical Care Critical Care patient: No - Discharge Referral Referred to [facility] Med P.C.: No - Medication Review Med list reviewed for High Risk Meds patients 65 and older: Yes
--- NOTE | 2019-11-28 17:20 | CON.CARD ---
Cardiology Consult (text) - Consultation Consultation Note: Chief Complaint: leg weakness, fall History of Present Illness: 84 M h/o HTN, T2DM, HfpEF ,CKD stage 4 p/w leg weakness, fall. Sees Dr. Pastrana for cardio, bl Cr 3.0-3.3 in the office, had been on torsemide 50 mg BID. Past few days has felt weak, especially legs, then had fall when trying to move in room, was able to brace himself and slide from bed. No LOC. No cp sob palps dizzy loc pnd orthopnea le edema. Found to be in kwabena here. Torsemide was held here and given some ivfs and cr improving. - Past Medical History Cardio/Vascular: Yes: CHF, HTN, Hyperlipdemia Pulmonary: Yes: Sleep Apnea Renal/: Yes: Renal Inusuff, BPH Endocrine: Yes: Diabetes Mellitus, Hypothyroidism - Past Surgical History Past Surgical History: Yes: Hernia Repair, Joint Replacement (B/L Knee and Rt Hip) - Alcohol/Substance Use Hx Alcohol Use: Yes (rarely) - Smoking History Smoking history: Unknown if ever smoked Have you smoked in the past 12 months: No - Social History History of Recent Travel: No Home Medications - Allergies Allergies/Adverse Reactions: Allergies Allergy/AdvReac Type Severity Reaction Status Date / Time No Known Drug Allergies Allergy Verified 11/27/19 13:50 Current Medications Generic Name Dose Route Start Last Admin Trade Name Freq PRN Reason Stop Dose Admin Aspirin 81 mg 11/28/19 10:00 11/28/19 09:20 Asa - PO 81 mg DAILY DORA Administration Atorvastatin Calcium 20 mg 11/27/19 22:00 11/27/19 21:42 Lipitor - PO 20 mg HS DORA Administration Heparin Sodium (Porcine) 5,000 unit 11/27/19 22:00 11/28/19 09:19 Heparin - SQ 5,000 unit BID DORA Administration Sodium Chloride 1,000 mls @ 42 mls/hr 11/27/19 21:58 Normal Saline - IV ASDIR DORA Insulin Aspart 1 vial 11/28/19 11:00 Novolog Vial Sliding Scale - SQ TIDAC DORA Protocol Insulin Aspart 1 vial 11/28/19 22:00 Novolog Vial Sliding Scale - SQ HS DORA Protocol Insulin Detemir 10 units 11/28/19 10:45 Levemir Vial SQ 0700,2200 DORA Labetalol HCl 200 mg 11/28/19 10:00 11/28/19 09:20 Normodyne - PO 200 mg DAILY DORA Administration Levothyroxine Sodium 50 mcg 11/28/19 07:00 11/28/19 06:32 Synthroid - PO 50 mcg ACBK DORA Administration Nifedipine 30 mg 11/29/19 10:00 Procardia Xl - PO DAILY DORA Wgrtj-5-Kiig Ethyl Esters 1 gm 11/28/19 10:00 11/28/19 09:20 Lovaza - PO 1 gm DAILY DORA Administration Sodium Bicarbonate 1 meq 11/28/19 15:30 Neut 4% Injection - IV 11/28/19 17:31 Q1H DORA Family Medical History Family History: Unremarkable Review of Systems - Review of Systems per hpi; all others nl Vital Signs: Vital Signs Period Temp Pulse Resp BP Sys/Eisenberg Pulse Ox Last 24 Hr 97.9 F-98.3 F 60-72 16-20 164-190/55-73 95-99 Constitutional: Yes: Well Nourished, No Distress, Calm Eyes: Yes: Conjunctiva Clear, EOM Intact HENT: Yes: Atraumatic, Normocephalic Neck: Yes: Supple, Trachea Midline Respiratory: Yes: Regular, CTA Bilaterally Gastrointestinal: Yes: Normal Bowel Sounds, Soft Cardiovascular: Yes: Regular Rate and Rhythm Heart Sounds: Yes: S1, S2 Extremities: No: Cold Edema: No Integumentary: No: Jaundice diaphoresis Neurological: Yes: Alert, Oriented Psychiatric: No: Agitated - Other Data Labs, Other Data: Laboratory Last Values WBC 6.3 K/mm3 (4.0-10.8) 11/28/19 06:50 RBC 3.91 M/mm3 (4.00-5.60) L 11/28/19 06:50 Hgb 11.2 GM/dl (11.7-16.9) L 11/28/19 06:50 Hct 33.8 % (35.4-49) L 11/28/19 06:50 MCV 86.4 fl (80-96) 11/28/19 06:50 MCH 28.7 pg (25.7-33.7) 11/28/19 06:50 MCHC 33.2 g/dl (32.0-35.9) 11/28/19 06:50 RDW 13.8 % (11.9-15.9) 11/28/19 06:50 Plt Count 196 K/MM3 (134-434) 11/28/19 06:50 MPV 9.1 fl (7.5-11.1) 11/28/19 06:50 Absolute Neuts (auto) 3.8 K/mm3 11/28/19 06:50 Neutrophils % 59.4 % (42.8-82.8) D 11/28/19 06:50 Lymphocytes % 25.0 % (8-40) D 11/28/19 06:50 Monocytes % 6.7 % (3.8-10.2) 11/28/19 06:50 Eosinophils % 8.4 % (0-4.5) H D 11/28/19 06:50 Basophils % 0.5 % (0-2.0) 11/28/19 06:50 Sodium 133 mmol/L (136-145) L 11/28/19 15:56 Potassium 3.5 mmol/L (3.5-5.1) 11/28/19 15:56 Chloride 89 mmol/L (98-107) L 11/28/19 15:56 Carbon Dioxide 28 mmol/L (21-32) 11/28/19 15:56 Anion Gap 16 MMOL/L (8-16) 11/28/19 15:56 BUN 101.0 mg/dl (7-18) H 11/28/19 15:56 Creatinine 4.4 mg/dl (0.55-1.3) H 11/28/19 15:56 Est GFR (CKD-EPI)AfAm 13.39 11/28/19 15:56 Est GFR (CKD-EPI)NonAf 11.55 11/28/19 15:56 Random Glucose 403 mg/dl (74-106) H* 11/28/19 15:56 Hemoglobin A1c % 10.0 % (4.2-6.3) H 11/28/19 06:50 Serum Osmolality 332 mosm/kg (278-305) H 11/27/19 17:24 Calcium 8.5 mg/dl (8.5-10) 11/28/19 15:56 Magnesium 2.1 mg/dL (1.8-2.4) 11/28/19 06:50 Total Bilirubin 0.5 mg/dl (0.2-1) 08/31/20 06:50 AST 20 U/L (15-37) 11/28/19 06:50 ALT 24 U/L (13-61) 11/28/19 06:50 Alkaline Phosphatase 74 U/L (45-117) D 11/28/19 06:50 Creatine Kinase 720 U/L (26-308) H 11/27/19 12:34 Creatine Kinase Index 1.9 % (0.0-5.0) 11/27/19 12:34 CK-MB (CK-2) 14.0 ng/mL (0.5-3.6) H 11/27/19 12:34 Troponin I 0.04 ng/ml (0.00-0.05) 11/27/19 12:34 Total Protein 6.4 g/dl (6.4-8.2) 11/28/19 06:50 Albumin 3.8 g/dl (3.4-5.0) 11/28/19 06:50 Urine Color Yellow 11/27/19 17:19 Urine Appearance Clear 11/27/19 17:19 Urine pH 5.0 (4.5-8) 11/27/19 17:19 Urine Protein 1+ (NEGATIVE) H 11/27/19 17:19 Urine Glucose (UA) Trace (NEGATIVE) 11/27/19 17:19 Urine Ketones Negative (NEGATIVE) 11/27/19 17:19 Urine Blood Trace-intact (NEGATIVE) 11/27/19 17:19 Urine Nitrite Negative (NEGATIVE) 11/27/19 17:19 Urine Bilirubin Negative (NEGATIVE) 11/27/19 17:19 Urine Urobilinogen 0.2 (0.2-1.0) 11/27/19 17:19 Ur Leukocyte Esterase Negative (NEGATIVE) 11/27/19 17:19 Urine RBC 2-5 /hpf (0-4) 11/27/19 17:19 Urine WBC 0-2 (NEGATIVE) 11/27/19 17:19 Ur Transition Epith Cell Few /hpf 11/27/19 17:19 Urine Bacteria Rare /hpf (NEGATIVE) 11/27/19 17:19 Urine Osmolality 341 mosm/kg (300-900) 11/27/19 17:22 Ur Random Creatinine 92.8 mg/dL 11/27/19 17:22 U Random Total Protein 42.2 mg/dL (0-11.9) H 11/27/19 17:22 Ur Random Sodium 50 MMOL/L (40-220) 11/27/19 17:22 COVID-19 (MARK) Not detected (Not Detected) 11/27/19 14:33 tele: sr ecg: sr, unremarkable cxr; clear a/p: 84 M h/o HTN, T2DM, HfpEF ,CKD stage 4 p/w leg weakness, fall. kwabena on ckd: -no signs vol overload, agree with holding torsemide (was on 50 bid at home) and gentle ivfs. Cr improving today. Resume torsemide at lower dose when cr at baseline. D/w Renal. chronic diastolic HF - as above, no signs overload here DM - manage per primary HTN - cont current meds weakness, fall: -likely due to kwabena -PT eval
[2019-11-28] MEDS: SODIUM BICARBONATE 4.2% 5 MEQ/10 ML DISP.SYRIN IVPUSH SCH ×3 (18:30→21:32)
[2019-11-28] MEDS: ATORVASTATIN CA 20 MG TABLET (FP) PO SCH (22:15)
[2019-11-28 23:36] LABS: CALCIUM 8.6 mg/dl (8.5-10); POTASSIUM 3.2 mmol/L (3.5-5.1)
[2019-11-29] MEDS: LABETALOL HCL 200 MG TABLET (FP) PO SCH ×3 (06:15→21:56)
[2019-11-29] MEDS: LEVOTHYROXINE NA 50 MCG TABLET (FP) PO SCH (06:15)
[2019-11-29] MEDS: INSULIN SLIDING SCALE (NOVOLOG) 1 VIAL SQ SCH ×4 (06:15→21:57)
[2019-11-29] MEDS: INSULIN (LEVEMIR) 100 UNITS/ML UNITS SQ SCH ×2 (06:16→21:56)
[2019-11-29 08:02] LABS: BASO % 0.4 % (0-2.0); EOS % 6.8 % (0-4.5); HEMATOCRIT 35.9 % (35.4-49); HEMOGLOBIN 11.7 GM/dl (11.7-16.9); LYMPH % 14.3 % (8-40); MCH 28.3 pg (25.7-33.7); MCHC 32.7 g/dl (32.0-35.9); MEAN CELL VOLUME 86.7 fl (80-96); MEAN PLT VOLUME 8.3 fl (7.5-11.1); NEUT % 72.5 % (42.8-82.8); PLATELET COUNT 200 K/MM3 (134-434); RBC 4.14 M/mm3 (4.00-5.60); WHITE BLOOD COUNT 7.7 K/mm3 (4.0-10.8)
[2019-11-29 08:12] LABS: ALBUMIN 3.6 g/dl (3.4-5.0); BILIRUBIN,TOTAL 0.6 mg/dl (0.2-1); CALCIUM 8.7 mg/dl (8.5-10); CREATININE 3.9 mg/dl (0.55-1.3); TOT PROT 6.3 g/dl (6.4-8.2)
[2019-11-29 08:15] LABS: POTASSIUM 2.9 mmol/L (3.5-5.1)
[2019-11-29] MEDS ORDERED: POTASSIUM CHLORIDE TABS 20 MEQ TABLET.ER (FP) PO ONE ×2 (08:23→12:00)
[2019-11-29] MEDS ORDERED: SODIUM BICARBONATE 2.4 MEQ/5 ML SDVIAL IV ONE (08:50)
[2019-11-29] MEDS ORDERED: SODIUM BICARBONATE 0.5 MEQ/ML - 5 ML VIAL IV ONE (09:00)
[2019-11-29] MEDS ORDERED: KCL 10 MEQ IVPB 10 MEQ/100 ML INFUS.BAG IVPB SCH (09:00)
--- NOTE | 2019-11-29 09:48 | PN ---
Physical Exam: SUBJECTIVE: Patient seen and examined. Feels well. No complaints of pain or SOB. Walked well with PT. OBJECTIVE: Vital Signs Period Temp Pulse Resp BP Sys/Eisenberg Pulse Ox Last 24 Hr 97.7 F-98.5 F 56-65 18-20 176-195/62-73 95-98 GENERAL: The patient is awake, alert, and fully oriented, in no acute distress. HEAD: Normal with no signs of trauma. EYES: PERRL, extraocular movements intact, sclera anicteric, conjunctiva clear. No ptosis. ENT: Ears normal, nares patent, oropharynx clear without exudates, moist mucous membranes. NECK: Trachea midline, full range of motion, supple. LUNGS: Breath sounds equal, clear to auscultation bilaterally, no wheezes, no crackles, no accessory muscle use. HEART: Regular rate and rhythm, S1, S2 without murmur, rub or gallop. ABDOMEN: Soft, nontender, nondistended, normoactive bowel sounds, no guarding, no rebound, no hepatosplenomegaly, no masses. EXTREMITIES: 2+ pulses, warm, well-perfused, no edema. NEUROLOGICAL: Cranial nerves II through XII grossly intact. Normal speech, gait steady with walker. PSYCH: Normal mood, normal affect. SKIN: Warm, dry, normal turgor, sacral pressure ulcer. Laboratory Results - last 24 hr 11/28/19 11/28/19 11/28/19 06:50 15:56 22:00 WBC RBC Hgb Hct MCV MCH MCHC RDW Plt Count MPV Absolute Neuts (auto) Neutrophils % Lymphocytes % Monocytes % Eosinophils % Basophils % Sodium 133 L 138 Potassium 3.5 3.2 L Chloride 89 L 91 L Carbon Dioxide 28 26 Anion Gap 16 21 H BUN 101.0 H 97.0 H Creatinine 4.4 H 4.0 H Est GFR (CKD-EPI)AfAm 13.39 15.03 Est GFR (CKD-EPI)NonAf 11.55 12.97 Random Glucose 403 H* 326 H Hemoglobin A1c % 10.0 H Calcium 8.5 8.6 Total Bilirubin AST ALT Alkaline Phosphatase Creatine Kinase Creatine Kinase Index CK-MB (CK-2) Total Protein Albumin 11/29/19 11/29/19 07:22 07:22 WBC 7.7 RBC 4.14 Hgb 11.7 Hct 35.9 MCV 86.7 MCH 28.3 MCHC 32.7 RDW 14.0 Plt Count 200 MPV 8.3 Absolute Neuts (auto) 5.6 Neutrophils % 72.5 D Lymphocytes % 14.3 D Monocytes % 6.0 Eosinophils % 6.8 H Basophils % 0.4 Sodium 137 Potassium 2.9 L* Chloride 94 L Carbon Dioxide 30 Anion Gap 13 BUN 94.0 H Creatinine 3.9 H Est GFR (CKD-EPI)AfAm 15.49 Est GFR (CKD-EPI)NonAf 13.37 Random Glucose 227 H Hemoglobin A1c % Calcium 8.7 Total Bilirubin 0.6 AST 23 ALT 25 Alkaline Phosphatase 66 Creatine Kinase 658 H Creatine Kinase Index 1.6 CK-MB (CK-2) 11.1 H Total Protein 6.3 L Albumin 3.6 Active Medications Generic Name Dose Route Start Last Admin Trade Name Freq PRN Reason Stop Dose Admin Aspirin 81 mg 11/28/19 10:00 11/28/19 09:20 Asa - PO 81 mg DAILY DORA Administration Atorvastatin Calcium 20 mg 11/27/19 22:00 11/28/19 22:15 Lipitor - PO 20 mg HS DORA Administration Heparin Sodium (Porcine) 5,000 unit 11/27/19 22:00 11/28/19 21:31 Heparin - SQ 5,000 unit BID DORA Administration Sodium Chloride 1,000 mls @ 42 mls/hr 11/27/19 21:58 11/28/19 21:31 Normal Saline - IV 42 mls/hr ASDIR DORA Administration Potassium Chloride 10 meq in 100 mls @ 100 mls/hr 11/29/19 09:00 11/29/19 09:16 Potassium Chloride 10 Meq Premix Ivpb - IVPB 11/29/19 09:59 100 mls/hr Q60M DORA Administration Insulin Aspart 1 vial 11/28/19 11:00 11/29/19 06:15 Novolog Vial Sliding Scale - SQ 4 units TIDAC DORA Administration Protocol Insulin Aspart 1 vial 11/28/19 22:00 11/28/19 21:33 Novolog Vial Sliding Scale - SQ 6 units HS DORA Administration Protocol Insulin Detemir 10 units 11/28/19 10:45 11/29/19 06:16 Levemir Vial SQ 10 units 0700,2200 DORA Administration Labetalol HCl 200 mg 11/28/19 10:00 11/29/19 06:15 Normodyne - PO 200 mg DAILY DORA Administration Levothyroxine Sodium 50 mcg 11/28/19 07:00 11/29/19 06:15 Synthroid - PO 50 mcg ACBK DORA Administration Nifedipine 30 mg 11/29/19 10:00 Procardia Xl - PO DAILY DORA Ayxzm-9-Zxwt Ethyl Esters 1 gm 11/28/19 10:00 11/28/19 09:20 Lovaza - PO 1 gm DAILY DORA Administration Potassium Chloride 40 meq 11/29/19 12:00 K-Dur - PO 11/29/19 12:01 ONCE ONE ASSESSMENT/PLAN: #EBER-on-CKD -Likely secondary to over-diuresis -Hold Torsemide -Baseline Cr is about 2.6 -when resume Torsemide, will need to do so at lower dose -Follows with Dr. Andrews outpatient #Encephalopathy -HCT: No acute process -Resolved #HTN -Resume Procardia, Labetolol (change to bid dosing), and Imdur -If BP remains elevated, can increase Procardia dose #DM -POC glucoses remain above goal -Increase Levemir to 12 units bid -Diabetic diet #dCHF -Holding Torsemide 05/01 EBER -Echo 04/2016- EF 45-50% lv-mild dilated, mild-mod mr, mild tr, mild as -Chest Xray- no infiltrate or effusion -Strict I&Os (net even) -Daily weight (-3kg from admit) -Cardiology following #Dyslipidemia -Continue Lipitor, [place] 3 #Hypothyroidism -Continue levothyroxine #COVID testing -Negative #F/E/N -Continue NS @ 40 mLs/hr -Replete K again today 40 mEq PO x 2, 10 mEq IVPB x 1 (patient has difficulty tolerating IV) #Ppx -Sqh -PT Code Status: Full Code, Living Will, HCP Dispo: Requires Inpatient Care Visit type - Emergency Visit Emergency Visit: Yes ED Registration Date: 11/27/19 Care time: The patient presented to the Emergency Department on the above date and was hospitalized for further evaluation of their emergent condition. - New Patient This patient is new to me today: No - Critical Care Critical Care patient: No - Discharge Referral Referred to [facility] Med P.C.: No - Medication Review Med list reviewed for High Risk Meds patients 65 and older: Yes
[2019-11-29] MEDS ORDERED: NIFEdipine E.R. 30 MG TABLET PO SCH (10:00)
--- NOTE | 2019-11-29 10:06 | PN ---
Progress Note, Physician History of Present Illness: Pt seen and examined at bedside. He is awake and alert. he denies shortness of breath. - Current Medication List Current Medications: Active Medications Aspirin (Asa -) 81 mg PO DAILY [facility] Last Admin: 11/28/19 09:20 Dose: 81 mg Documented by: Atorvastatin Calcium (Lipitor -) 20 mg PO HS [facility] Last Admin: 11/28/19 22:15 Dose: 20 mg Documented by: Heparin Sodium (Porcine) (Heparin -) 5,000 unit SQ BID [facility] Last Admin: 11/28/19 21:31 Dose: 5,000 unit Documented by: Sodium Chloride (Normal Saline -) 1,000 mls @ 42 mls/hr IV ASDIR [facility] Last Admin: 11/28/19 21:31 Dose: 42 mls/hr Documented by: Insulin Aspart (Novolog Vial Sliding Scale -) 1 vial SQ TIDAC [facility]; Protocol Last Admin: 11/29/19 06:15 Dose: 4 units Documented by: Insulin Aspart (Novolog Vial Sliding Scale -) 1 vial SQ HS [facility]; Protocol Last Admin: 11/28/19 21:33 Dose: 6 units Documented by: Insulin Detemir (Levemir Vial) 10 units SQ 0700,2200 [facility] Last Admin: 11/29/19 06:16 Dose: 10 units Documented by: Labetalol HCl (Normodyne -) 200 mg PO DAILY [facility] Last Admin: 11/29/19 06:15 Dose: 200 mg Documented by: Levothyroxine Sodium (Synthroid -) 50 mcg PO ACBK [facility] Last Admin: 11/29/19 06:15 Dose: 50 mcg Documented by: Nifedipine (Procardia Xl -) 30 mg PO DAILY [facility] Lanvo-6-Lunm Ethyl Esters (Lovaza -) 1 gm PO DAILY [facility] Last Admin: 11/28/19 09:20 Dose: 1 gm Documented by: Potassium Chloride (K-Dur -) 40 meq PO ONCE ONE Stop: 11/29/19 12:01 - Objective Vital Signs: Vital Signs Temperature 98.3 F 11/29/19 06:00 Pulse Rate 60 11/29/19 06:00 Respiratory Rate 18 11/29/19 08:33 Blood Pressure 195/73 H 11/29/19 06:00 O2 Sat by Pulse Oximetry (%) 96 11/29/19 08:33 Constitutional: Yes: Calm Eyes: Yes: Conjunctiva Clear HENT: Yes: Atraumatic Neck: Yes: Supple Cardiovascular: Yes: S1, S2 Respiratory: Yes: CTA Bilaterally Gastrointestinal: Yes: Soft Genitourinary: Yes: WNL Musculoskeletal: Yes: WNL Edema: No Neurological: Yes: Oriented Psychiatric: Yes: Oriented Labs: CBC, BMP 11/29/19 07:22 11/29/19 07:22 Problem List - Problems (1) EBER (acute kidney injury) Code(s): N17.9 - ACUTE KIDNEY FAILURE, UNSPECIFIED (2) Hyponatremia Code(s): E87.1 - HYPO-OSMOLALITY AND HYPONATREMIA Assessment/Plan Current Medications Generic Name Dose Route Start Last Admin Trade Name Freq PRN Reason Stop Dose Admin Aspirin 81 mg 11/28/19 10:00 11/28/19 09:20 Asa - PO 81 mg DAILY DOAR Administration Atorvastatin Calcium 20 mg 11/27/19 22:00 11/28/19 22:15 Lipitor - PO 20 mg HS DORA Administration Heparin Sodium (Porcine) 5,000 unit 11/27/19 22:00 11/28/19 21:31 Heparin - SQ 5,000 unit BID DORA Administration Sodium Chloride 1,000 mls @ 42 mls/hr 11/27/19 21:58 11/28/19 21:31 Normal Saline - IV 42 mls/hr ASDIR DORA Administration Insulin Aspart 1 vial 11/28/19 11:00 11/29/19 06:15 Novolog Vial Sliding Scale - SQ 4 units TIDAC DORA Administration Protocol Insulin Aspart 1 vial 11/28/19 22:00 11/28/19 21:33 Novolog Vial Sliding Scale - SQ 6 units HS DORA Administration Protocol Insulin Detemir 10 units 11/28/19 10:45 11/29/19 06:16 Levemir Vial SQ 10 units 0700,2200 DORA Administration Labetalol HCl 200 mg 11/28/19 10:00 11/29/19 06:15 Normodyne - PO 200 mg DAILY DORA Administration Levothyroxine Sodium 50 mcg 11/28/19 07:00 11/29/19 06:15 Synthroid - PO 50 mcg ACBK DORA Administration Nifedipine 30 mg 11/29/19 10:00 Procardia Xl - PO DAILY DORA Kgmly-1-Wznz Ethyl Esters 1 gm 11/28/19 10:00 11/28/19 09:20 Lovaza - PO 1 gm DAILY DORA Administration Potassium Chloride 40 meq 11/29/19 12:00 K-Dur - PO 11/29/19 12:01 ONCE ONE Laboratory Tests 11/27/19 11/27/19 11/28/19 12:34 13:21 06:50 Hgb 11.9 11.2 L Sodium 132 L Potassium 3.5 Chloride BUN 110.0 H* Creatinine 5.1 H Hemoglobin A1c % Creatine Kinase 720 H 11/28/19 11/28/19 11/29/19 06:50 06:50 07:22 Hgb Sodium 137 Potassium Chloride 90 L BUN 101.0 H Creatinine 4.6 H Hemoglobin A1c % 10.0 H Creatine Kinase 658 H Impression 1. EBER 2. ckd 3. chf 4. hypokalemia 5. s/p fall 6. mild rhabdo 7. hyponatremia 8. hypothyroidism 9. left lower pole possible cyst 10. htn Plan - renal function is improving - eber likely from pre-renal disease secondary to over-diuresis - cont ns at 40 cc per hour and add potassium to fluids as well - replace potassium - cardio input appreciated - when torsemide is restarted will use lower dose - volume status is stable - pt has a baseline dx board operator of about 2.6 - discussed with medical team - cpk is improved, repeat in am
[2019-11-29] MEDS: HEPARIN NA (PORCINE) 5,000 UNITS/ML 1ML VIAL SQ SCH ×2 (10:23→21:56)
[2019-11-29] MEDS: OMEGA-3 ACID ETHYL ESTERS (FATTY-ACIDS) 1 GM CAPSULE (FP) PO SCH (10:23)
[2019-11-29] MEDS: ASPIRIN 81 MG CHEWABLE TABLETS PO SCH (10:23)
[2019-11-29] MEDS: SODIUM CHLORIDE 1,000 ML with POTASSIUM CHLORIDE 10 MEQ IVPB SCH (10:24)
--- NOTE | 2019-11-29 10:24 | PN ---
Progress Note (short form) - Note Progress Note: Chief Complaint: leg weakness, fall s: no chest pain, palps, dizziness, dyspnea Current Medications Generic Name Dose Route Start Last Admin Trade Name Meggan PRN Reason Stop Dose Admin Aspirin 81 mg 11/28/19 10:00 11/28/19 09:20 Asa - PO 81 mg DAILY DORA Administration Atorvastatin Calcium 20 mg 11/27/19 22:00 11/28/19 22:15 Lipitor - PO 20 mg HS DORA Administration Heparin Sodium (Porcine) 5,000 unit 11/27/19 22:00 11/28/19 21:31 Heparin - SQ 5,000 unit BID DORA Administration Potassium Chloride 10 meq/ 1,005 mls @ 40 mls/hr 11/29/19 10:30 Sodium Chloride IVPB ASDIR DORA Insulin Aspart 1 vial 11/28/19 11:00 11/29/19 06:15 Novolog Vial Sliding Scale - SQ 4 units TIDAC DORA Administration Protocol Insulin Aspart 1 vial 11/28/19 22:00 11/28/19 21:33 Novolog Vial Sliding Scale - SQ 6 units HS DORA Administration Protocol Insulin Detemir 10 units 11/28/19 10:45 11/29/19 06:16 Levemir Vial SQ 10 units 0700,2200 DORA Administration Labetalol HCl 200 mg 11/28/19 10:00 11/29/19 06:15 Normodyne - PO 200 mg DAILY DORA Administration Levothyroxine Sodium 50 mcg 11/28/19 07:00 11/29/19 06:15 Synthroid - PO 50 mcg ACBK DORA Administration Nifedipine 30 mg 11/29/19 10:00 Procardia Xl - PO DAILY DORA [id number] Ethyl Esters 1 gm 11/28/19 10:00 11/28/19 09:20 Lovaza - PO 1 gm DAILY DORA Administration Potassium Chloride 40 meq 11/29/19 12:00 K-Dur - PO 11/29/19 12:01 ONCE ONE Vital Signs Period Temp Pulse Resp BP Sys/Eisenberg Pulse Ox Last 24 Hr 97.7 F-98.5 F 56-64 18-20 176-195/62-73 95-98 Constitutional: Yes: Well Nourished, No Distress, Calm Eyes: Yes: Conjunctiva Clear, EOM Intact HENT: Yes: Atraumatic, Normocephalic Neck: Yes: Supple, Trachea Midline Respiratory: Yes: Regular, CTA Bilaterally Gastrointestinal: Yes: Normal Bowel Sounds, Soft Cardiovascular: Yes: Regular Rate and Rhythm Heart Sounds: Yes: S1, S2 Extremities: No: Cold Edema: No Integumentary: No: Jaundice diaphoresis Neurological: Yes: Alert, Oriented Psychiatric: No: Agitated tele: sr, one episode PAT ecg: sr, unremarkable cxr; clear a/p: 84 M h/o HTN, T2DM, HfpEF ,CKD stage 4 p/w leg weakness, fall. kwabena on ckd: -no signs vol overload, agree with holding torsemide (was on 50 bid at home) and gentle ivfs. Cr improving today. Resume torsemide at lower dose when cr at baseline. D/w Renal. chronic diastolic HF - as above, no signs overload here DM - manage per primary HTN - home meds - labetalol 200 mg BID, isosorbide mononitrate 30 mg daily, nifedipine 30 mg daily weakness, fall: -likely due to kwabena -PT eval
[2019-11-29 14:42] VITALS: BMI 29.7
[2019-11-29] MEDS ORDERED: LABETALOL HCL 5 MG/1 ML (100MG/20 ML VIAL) IVPUSH ONE (15:00)
[2019-11-29] MEDS: SODIUM BICARBONATE 2.4 MEQ/5 ML SDVIAL IV SCH ×2 (18:05→18:06)
[2019-11-29] MEDS: ATORVASTATIN CA 20 MG TABLET (FP) PO SCH (21:56)
[2019-11-30] MEDS: INSULIN (LEVEMIR) 100 UNITS/ML UNITS SQ SCH (06:34)
[2019-11-30] MEDS: INSULIN SLIDING SCALE (NOVOLOG) 1 VIAL SQ SCH ×2 (06:34→11:51)
[2019-11-30] MEDS: LEVOTHYROXINE NA 50 MCG TABLET (FP) PO SCH (06:34)
[2019-11-30] MEDS ORDERED: ISOSORBIDE MONONITRATE 30 MG TAB.SR.24H (FP) PO SCH (07:00)
[2019-11-30 08:15] LABS: BASO % 0.5 % (0-2.0); EOS % 9.8 % (0-4.5); HEMATOCRIT 36.1 % (35.4-49); HEMOGLOBIN 11.7 GM/dl (11.7-16.9); LYMPH % 18.3 % (8-40); MCH 28.3 pg (25.7-33.7); MCHC 32.3 g/dl (32.0-35.9); MEAN CELL VOLUME 87.7 fl (80-96); MEAN PLT VOLUME 9.2 fl (7.5-11.1); MONO % 7.3 % (3.8-10.2); NEUT % 64.1 % (42.8-82.8); PLATELET COUNT 186 K/MM3 (134-434); RBC 4.12 M/mm3 (4.00-5.60); RDW 14.3 % (11.9-15.9)
[2019-11-30 08:19] LABS: ALBUMIN 3.5 g/dl (3.4-5.0); BILIRUBIN,TOTAL 0.7 mg/dl (0.2-1); CALCIUM 8.6 mg/dl (8.5-10); CREATININE 3.4 mg/dl (0.55-1.3); MAGNESIUM 2.1 mg/dL (1.8-2.4); POTASSIUM 3.8 mmol/L (3.5-5.1); TOT PROT 6.1 g/dl (6.4-8.2)
--- NOTE | 2019-11-30 09:24 | PN ---
Progress Note, Physician History of Present Illness: Pt seen and examined at bedside. He is awake and alert. He denies shortness of breath. He is eager to go home. - Current Medication List Current Medications: Active Medications Amino Acids (Prosource No Carb Liquid Pkt) 30 ml PO DAILY [facility] Aspirin (Asa -) 81 mg PO DAILY [facility] Last Admin: 11/29/19 10:23 Dose: 81 mg Documented by: Atorvastatin Calcium (Lipitor -) 20 mg PO HS [facility] Last Admin: 11/29/19 21:56 Dose: 20 mg Documented by: Heparin Sodium (Porcine) (Heparin -) 5,000 unit SQ BID [facility] Last Admin: 11/29/19 21:56 Dose: 5,000 unit Documented by: Potassium Chloride 10 meq/ (Sodium Chloride) 1,005 mls @ 40 mls/hr IVPB ASDIR [facility] Last Admin: 11/29/19 10:24 Dose: 40 mls/hr Documented by: Insulin Aspart (Novolog Vial Sliding Scale -) 1 vial SQ TIDAC [facility]; Protocol Last Admin: 11/30/19 06:34 Dose: 4 units Documented by: Insulin Aspart (Novolog Vial Sliding Scale -) 1 vial SQ HS [facility]; Protocol Last Admin: 11/29/19 21:57 Dose: 6 units Documented by: Insulin Detemir (Levemir Vial) 12 units SQ 0700,2200 [facility] Last Admin: 11/30/19 06:34 Dose: 12 units Documented by: Isosorbide Mononitrate (Imdur -) 30 mg PO AM [facility] Last Admin: 11/30/19 06:34 Dose: 30 mg Documented by: Labetalol HCl (Normodyne -) 200 mg PO BID [facility] Last Admin: 11/29/19 21:56 Dose: 200 mg Documented by: Levothyroxine Sodium (Synthroid -) 50 mcg PO ACBK [facility] Last Admin: 11/30/19 06:34 Dose: 50 mcg Documented by: Nifedipine (Procardia Xl -) 60 mg PO DAILY [facility] Twoyk-6-Htla Ethyl Esters (Lovaza -) 1 gm PO DAILY [facility] Last Admin: 11/29/19 10:23 Dose: 1 gm Documented by: - Objective Vital Signs: Vital Signs Temperature 98.7 F 11/30/19 08:00 Pulse Rate 58 L 11/30/19 08:00 Respiratory Rate 18 11/30/19 08:00 Blood Pressure 169/63 11/30/19 08:00 O2 Sat by Pulse Oximetry (%) 99 11/30/19 08:00 Constitutional: Yes: Calm Eyes: Yes: Conjunctiva Clear HENT: Yes: Atraumatic Neck: Yes: Supple Cardiovascular: Yes: S1, S2 Respiratory: Yes: CTA Bilaterally Gastrointestinal: Yes: Soft Genitourinary: Yes: WNL Musculoskeletal: Yes: WNL Edema: No Neurological: Yes: Oriented Psychiatric: Yes: Oriented Labs: CBC, BMP 11/30/19 07:00 11/30/19 07:00 Problem List - Problems (1) EBER (acute kidney injury) Code(s): N17.9 - ACUTE KIDNEY FAILURE, UNSPECIFIED (2) Hyponatremia Code(s): E87.1 - HYPO-OSMOLALITY AND HYPONATREMIA Assessment/Plan Current Medications Generic Name Dose Route Start Last Admin Trade Name Freq PRN Reason Stop Dose Admin Amino Acids 30 ml 11/30/19 10:00 Prosource No Carb Liquid Pkt PO DAILY DORA Aspirin 81 mg 11/28/19 10:00 11/29/19 10:23 Asa - PO 81 mg DAILY DORA Administration Atorvastatin Calcium 20 mg 11/27/19 22:00 11/29/19 21:56 Lipitor - PO 20 mg HS DORA Administration Heparin Sodium (Porcine) 5,000 unit 11/27/19 22:00 11/29/19 21:56 Heparin - SQ 5,000 unit BID DORA Administration Potassium Chloride 10 meq/ 1,005 mls @ 40 mls/hr 11/29/19 10:30 11/29/19 10:24 Sodium Chloride IVPB 40 mls/hr ASDIR DORA Administration Insulin Aspart 1 vial 11/28/19 11:00 11/30/19 06:34 Novolog Vial Sliding Scale - SQ 4 units TIDAC DORA Administration Protocol Insulin Aspart 1 vial 11/28/19 22:00 11/29/19 21:57 Novolog Vial Sliding Scale - SQ 6 units HS DORA Administration Protocol Insulin Detemir 12 units 11/29/19 13:20 11/30/19 06:34 Levemir Vial SQ 12 units 0700,2200 DORA Administration Isosorbide Mononitrate 30 mg 11/30/19 07:00 11/30/19 06:34 Imdur - PO 30 mg AM DORA Administration Labetalol HCl 200 mg 11/29/19 22:00 11/29/19 21:56 Normodyne - PO 200 mg BID DORA Administration Levothyroxine Sodium 50 mcg 11/28/19 07:00 11/30/19 06:34 Synthroid - PO 50 mcg ACBK DORA Administration Nifedipine 60 mg 11/30/19 10:00 Procardia Xl - PO DAILY DORA Lmvab-4-[id number] Ethyl Esters 1 gm 11/28/19 10:00 11/29/19 10:23 Lovaza - PO 1 gm DAILY DORA Administration Impression 1. EBER 2. ckd 3. chf 4. hypokalemia 5. s/p fall 6. mild rhabdo 7. hyponatremia 8. hypothyroidism 9. left lower pole possible cyst 10. htn Plan - renal function improving - potassium improved - hold torsemide today and tomorrow, restart at lower dose - monitor bp - increase increase imdur to 60 - repeat bp after am meds - cardio follow up - will need close follow up with renal and cardio after discharge - pt has a baseline director of assessment of about 2.6 - cpk improved
[2019-11-30] MEDS: LABETALOL HCL 200 MG TABLET (FP) PO SCH (09:30)
[2019-11-30] MEDS: ASPIRIN 81 MG CHEWABLE TABLETS PO SCH (09:30)
[2019-11-30] MEDS: OMEGA-3 ACID ETHYL ESTERS (FATTY-ACIDS) 1 GM CAPSULE (FP) PO SCH (09:30)
[2019-11-30] MEDS: HEPARIN NA (PORCINE) 5,000 UNITS/ML 1ML VIAL SQ SCH (09:31)
[2019-11-30] MEDS ORDERED: NIFEdipine E.R 60 MG TABLET PO SCH (10:00)
[2019-11-30] MEDS ORDERED: AMINO ACIDS/PROTEIN HYDROLYS 30 ML LIQUID.PKT PO SCH (10:00)
[2019-11-30] MEDS: SODIUM CHLORIDE 1,000 ML with POTASSIUM CHLORIDE 10 MEQ IVPB SCH (11:51)
[2019-11-30 14:56] VITALS: BP 181/59; PULSE 62; TEMP 98.6
--- NOTE | 2019-11-30 15:06 | PN ---
Progress Note (short form) - Note Progress Note: Chief Complaint: leg weakness, fall s: no overnight events Current Medications Generic Name Dose Route Start Last Admin Trade Name Meggan PRN Reason Stop Dose Admin Amino Acids 30 ml 11/30/19 10:00 11/30/19 09:35 Prosource No Carb Liquid Pkt PO 30 ml DAILY DORA Administration Aspirin 81 mg 11/28/19 10:00 11/30/19 09:30 Asa - PO 81 mg DAILY DORA Administration Atorvastatin Calcium 20 mg 11/27/19 22:00 11/29/19 21:56 Lipitor - PO 20 mg HS DORA Administration Heparin Sodium (Porcine) 5,000 unit 11/27/19 22:00 11/30/19 09:31 Heparin - SQ 5,000 unit BID DORA Administration Potassium Chloride 10 meq/ 1,005 mls @ 40 mls/hr 11/29/19 10:30 11/30/19 11:51 Sodium Chloride IVPB 40 mls/hr ASDIR DORA Administration Insulin Aspart 1 vial 11/28/19 11:00 11/30/19 11:51 Novolog Vial Sliding Scale - SQ 10 units TIDAC DORA Administration Protocol Insulin Aspart 1 vial 11/28/19 22:00 11/29/19 21:57 Novolog Vial Sliding Scale - SQ 6 units HS DORA Administration Protocol Insulin Detemir 12 units 11/29/19 13:20 11/30/19 06:34 Levemir Vial SQ 12 units 0700,2200 DORA Administration Isosorbide Mononitrate 30 mg 11/30/19 07:00 11/30/19 06:34 Imdur - PO 30 mg AM DORA Administration Labetalol HCl 200 mg 11/29/19 22:00 11/30/19 09:30 Normodyne - PO 200 mg BID DORA Administration Levothyroxine Sodium 50 mcg 11/28/19 07:00 11/30/19 06:34 Synthroid - PO 50 mcg ACBK DORA Administration Nifedipine 60 mg 11/30/19 10:00 11/30/19 09:30 Procardia Xl - PO 60 mg DAILY DORA Administration [id number]-5-Qdsk Ethyl Esters 1 gm 11/28/19 10:00 11/30/19 09:30 Lovaza - PO 1 gm DAILY DORA Administration Vital Signs Period Temp Pulse Resp BP Sys/Eisenberg Pulse Ox Last 24 Hr 97.7 F-98.7 F 58-78 18-18 165-209/59-78 97-100 Laboratory Last Values WBC 6.0 K/mm3 (4.0-10.8) 11/30/19 07:00 RBC 4.12 M/mm3 (4.00-5.60) 11/30/19 07:00 Hgb 11.7 GM/dl (11.7-16.9) 11/30/19 07:00 Hct 36.1 % (35.4-49) 11/30/19 07:00 MCV 87.7 fl (80-96) 11/30/19 07:00 MCH 28.3 pg (25.7-33.7) 11/30/19 07:00 MCHC 32.3 g/dl (32.0-35.9) 11/30/19 07:00 RDW 14.3 % (11.9-15.9) 11/30/19 07:00 Plt Count 186 K/MM3 (134-434) 11/30/19 07:00 MPV 9.2 fl (7.5-11.1) D 11/30/19 07:00 Absolute Neuts (auto) 3.9 K/mm3 11/30/19 07:00 Neutrophils % 64.1 % (42.8-82.8) 11/30/19 07:00 Lymphocytes % 18.3 % (8-40) D 11/30/19 07:00 Monocytes % 7.3 % (3.8-10.2) 11/30/19 07:00 Eosinophils % 9.8 % (0-4.5) H 11/30/19 07:00 Basophils % 0.5 % (0-2.0) 11/30/19 07:00 Sodium 140 mmol/L (136-145) 11/30/19 07:00 Potassium 3.8 mmol/L (3.5-5.1) 11/30/19 07:00 Chloride 103 mmol/L (98-107) 11/30/19 07:00 Carbon Dioxide 29 mmol/L (21-32) 11/30/19 07:00 Anion Gap 8 MMOL/L (8-16) 11/30/19 07:00 BUN 79.0 mg/dl (7-18) H 11/30/19 07:00 Creatinine 3.4 mg/dl (0.55-1.3) H 11/30/19 07:00 Est GFR (CKD-EPI)AfAm 18.29 11/30/19 07:00 Est GFR (CKD-EPI)NonAf 15.78 11/30/19 07:00 POC Glucometer 346 UNITS (80-120) 11/30/19 11:41 Random Glucose 270 mg/dl (74-106) H 11/30/19 07:00 Hemoglobin A1c % 10.0 % (4.2-6.3) H 11/28/19 06:50 Serum Osmolality 332 mosm/kg (278-305) H 11/27/19 17:24 Calcium 8.6 mg/dl (8.5-10) 11/30/19 07:00 Magnesium 2.1 mg/dL (1.8-2.4) 11/30/19 07:00 Total Bilirubin 0.7 mg/dl (0.2-1) 11/30/19 07:00 AST 19 U/L (15-37) 11/30/19 07:00 ALT 24 U/L (13-61) 11/30/19 07:00 Alkaline Phosphatase 64 U/L (45-117) 11/30/19 07:00 Creatine Kinase 444 U/L (26-308) H 11/30/19 07:00 Creatine Kinase Index 1.9 % (0.0-5.0) 11/30/19 07:00 CK-MB (CK-2) 8.8 ng/mL (0.5-3.6) H 11/30/19 07:00 Troponin I 0.04 ng/ml (0.00-0.05) 11/27/19 12:34 Total Protein 6.1 g/dl (6.4-8.2) L 11/30/19 07:00 Albumin 3.5 g/dl (3.4-5.0) 11/30/19 07:00 TSH 4.58 uIU/ml (0.358-3.74) H D 11/29/19 07:22 Urine Color Yellow 11/27/19 17:19 Urine Appearance Clear 11/27/19 17:19 Urine pH 5.0 (4.5-8) 11/27/19 17:19 Urine Protein 1+ (NEGATIVE) H 11/27/19 17:19 Urine Glucose (UA) Trace (NEGATIVE) 11/27/19 17:19 Urine Ketones Negative (NEGATIVE) 11/27/19 17:19 Urine Blood Trace-intact (NEGATIVE) 11/27/19 17:19 Urine Nitrite Negative (NEGATIVE) 11/27/19 17:19 Urine Bilirubin Negative (NEGATIVE) 11/27/19 17:19 Urine Urobilinogen 0.2 (0.2-1.0) 11/27/19 17:19 Ur Leukocyte Esterase Negative (NEGATIVE) 11/27/19 17:19 Urine RBC 2-5 /hpf (0-4) 11/27/19 17:19 Urine WBC 0-2 (NEGATIVE) 11/27/19 17:19 Ur Transition Epith Cell Few /hpf 11/27/19 17:19 Urine Bacteria Rare /hpf (NEGATIVE) 11/27/19 17:19 Urine Osmolality 341 mosm/kg (300-900) 11/27/19 17:22 Ur Random Creatinine 92.8 mg/dL 11/27/19 17:22 U Random Total Protein 42.2 mg/dL (0-11.9) H 11/27/19 17:22 Ur Random Sodium 50 MMOL/L (40-220) 11/27/19 17:22 COVID-19 (MARK) Not detected (Not Detected) 11/27/19 14:33 Intake & Output 11/27/19 11/28/19 11/29/19 11/30/19 23:59 23:59 23:59 23:59 Intake Total 300 2007 3123 600 Output Total 600 2100 1200 970 Balance -300 -92 1923 -370 Weight 215 lb 207 lb ecg: sr, unremarkable cxr; clear a/p: 84 M h/o HTN, T2DM, HfpEF ,CKD stage 4 p/w leg weakness, fall. kwabena on ckd: -no signs vol overload, agree with holding torsemide (was on 50 bid at home) and gentle ivfs. Cr improving today. Resume torsemide at lower dose when cr at baseline. D/w Renal. chronic diastolic HF - as above, no signs overload here DM - manage per primary HTN - resumed home meds - labetalol 200 mg BID, isosorbide mononitrate 30 mg daily, nifedipine 30 mg daily - still with high BPs - nifedipine increased to 60 mg daily today - close outpatient follow up for BP monitoring weakness, fall: -likely due to kwabena -PT eval stable for dc from cardiac perspective
--- NOTE | 2019-12-01 14:30 | DS ---
Physical Exam: SUBJECTIVE: Patient seen and examined at bedside, feels well, CRE improving with IV hydration and titration of diuretics, has follow up with [facility] for repeat labs. VSS. OBJECTIVE: PHYSICAL EXAM GENERAL: The patient is awake, alert, and fully oriented, in no acute distress. HEAD: Normal with no signs of trauma. EYES: PERRL, extraocular movements intact, sclera anicteric, conjunctiva clear. ENT: Ears normal, nares patent, oropharynx clear without exudates, moist mucous membranes. NECK: Trachea midline, full range of motion, supple. LUNGS: Breath sounds equal, clear to auscultation bilaterally, no wheezes, no crackles, no accessory muscle use. HEART: Regular rate and rhythm, S1, S2 without murmur, rub or gallop. ABDOMEN: Soft, nontender, nondistended, normoactive bowel sounds, no guarding, no rebound, no hepatosplenomegaly, no masses. EXTREMITIES: 2+ pulses, warm, well-perfused, no edema. NEUROLOGICAL: Cranial nerves II through XII grossly intact. Normal speech, gait not observed. PSYCH: Normal mood, normal affect. SKIN: Warm, dry, normal turgor, no rashes or lesions noted. Vital Signs (72 hours) 11/28/19 11/28/19 11/28/19 18:00 21:00 22:00 Temperature 98.5 F 97.9 F Pulse Rate 64 60 Respiratory 19 19 19 Rate Blood Pressure 176/62 H 193/66 H O2 Sat by Pulse 95 98 96 Oximetry (%) 11/29/19 11/29/19 11/29/19 02:00 06:00 08:33 Temperature 97.7 F 98.3 F Pulse Rate 56 L 60 Respiratory 19 19 18 Rate Blood Pressure 192/71 H 195/73 H O2 Sat by Pulse 98 95 96 Oximetry (%) 11/29/19 11/29/19 11/29/19 14:00 15:50 20:00 Temperature 98.3 F 97.7 F Pulse Rate 62 78 76 Respiratory 19 18 Rate Blood Pressure 200/78 H 209/67 H 167/60 O2 Sat by Pulse 98 97 Oximetry (%) 11/30/19 11/30/19 11/30/19 00:00 04:00 08:00 Temperature 98.6 F 98.7 F 98.7 F Pulse Rate 64 60 58 L Respiratory 18 18 18 Rate Blood Pressure 185/65 H 165/78 169/63 O2 Sat by Pulse 100 100 99 Oximetry (%) 11/30/19 12:00 Temperature 98.6 F Pulse Rate 62 Respiratory 18 Rate Blood Pressure 181/59 H O2 Sat by Pulse 99 Oximetry (%) Microbiology 11/27/19 17:19 Urine - Urine Clean Catch Urine Culture - Final NO GROWTH OBTAINED Laboratory Tests 11/27/19 11/27/19 11/27/19 12:34 12:34 13:21 WBC 7.3 RBC 4.16 Hgb 11.9 Hct 36.8 MCV 88.5 MCH 28.5 MCHC 32.2 RDW 14.3 Plt Count 220 D MPV 9.0 Absolute Neuts (auto) 5.7 Neutrophils % 76.8 Lymphocytes % 13.7 D Monocytes % 4.4 Eosinophils % 4.6 H Basophils % 0.5 Sodium 132 L Potassium 3.5 Chloride 84 L Carbon Dioxide 26 Anion Gap 22 H BUN 110.0 H* Creatinine 5.1 H Est GFR (CKD-EPI)AfAm 11.20 Est GFR (CKD-EPI)NonAf 9.67 POC Glucometer Random Glucose 393 H Hemoglobin A1c % Serum Osmolality Calcium 8.9 Magnesium Total Bilirubin 0.8 AST 24 ALT 32 Alkaline Phosphatase 97 Creatine Kinase 720 H Creatine Kinase Index 1.9 CK-MB (CK-2) 14.0 H Troponin I 0.04 Total Protein 7.0 Albumin 4.2 TSH Urine Color Urine Appearance Urine pH Urine Protein Urine Glucose (UA) Urine Ketones Urine Blood Urine Nitrite Urine Bilirubin Urine Urobilinogen Ur Leukocyte Esterase Urine RBC Urine WBC Ur Transition Epith Cell Urine Bacteria Urine Osmolality Ur Random Creatinine U Random Total Protein Ur Random Sodium COVID-19 (MARK) 11/27/19 11/27/19 11/27/19 14:33 17:19 17:22 WBC RBC Hgb Hct MCV MCH MCHC RDW Plt Count MPV Absolute Neuts (auto) Neutrophils % Lymphocytes % Monocytes % Eosinophils % Basophils % Sodium Potassium Chloride Carbon Dioxide Anion Gap BUN Creatinine Est GFR (CKD-EPI)AfAm Est GFR (CKD-EPI)NonAf POC Glucometer Random Glucose Hemoglobin A1c % Serum Osmolality Calcium Magnesium Total Bilirubin AST ALT Alkaline Phosphatase Creatine Kinase Creatine Kinase Index CK-MB (CK-2) Troponin I Total Protein Albumin TSH Urine Color Yellow Urine Appearance Clear Urine pH 5.0 Urine Protein 1+ H Urine Glucose (UA) Trace Urine Ketones Negative Urine Blood Trace-intact Urine Nitrite Negative Urine Bilirubin Negative Urine Urobilinogen 0.2 Ur Leukocyte Esterase Negative Urine RBC 2-5 Urine WBC 0-2 Ur Transition Epith Cell Few Urine Bacteria Rare Urine Osmolality Ur Random Creatinine U Random Total Protein 42.2 H Ur Random Sodium COVID-19 (MARK) Not detected 11/27/19 11/27/19 11/27/19 17:22 17:22 17:24 WBC RBC Hgb Hct MCV MCH MCHC RDW Plt Count MPV Absolute Neuts (auto) Neutrophils % Lymphocytes % Monocytes % Eosinophils % Basophils % Sodium Potassium Chloride Carbon Dioxide Anion Gap BUN Creatinine Est GFR (CKD-EPI)AfAm Est GFR (CKD-EPI)NonAf POC Glucometer Random Glucose Hemoglobin A1c % Serum Osmolality 332 H Calcium Magnesium Total Bilirubin AST ALT Alkaline Phosphatase Creatine Kinase Creatine Kinase Index CK-MB (CK-2) Troponin I Total Protein Albumin TSH Urine Color Urine Appearance Urine pH Urine Protein Urine Glucose (UA) Urine Ketones Urine Blood Urine Nitrite Urine Bilirubin Urine Urobilinogen Ur Leukocyte Esterase Urine RBC Urine WBC Ur Transition Epith Cell Urine Bacteria Urine Osmolality 341 Ur Random Creatinine 92.8 U Random Total Protein Ur Random Sodium 50 COVID-19 (MARK) 11/28/19 11/28/19 11/28/19 06:50 06:50 06:50 WBC 6.3 RBC 3.91 L Hgb 11.2 L Hct 33.8 L MCV 86.4 MCH 28.7 MCHC 33.2 RDW 13.8 Plt Count 196 MPV 9.1 Absolute Neuts (auto) 3.8 Neutrophils % 59.4 D Lymphocytes % 25.0 D Monocytes % 6.7 Eosinophils % 8.4 H D Basophils % 0.5 Sodium 137 Potassium 2.5 L* Chloride 90 L Carbon Dioxide 30 Anion Gap 17 H BUN 101.0 H Creatinine 4.6 H Est GFR (CKD-EPI)AfAm 12.69 Est GFR (CKD-EPI)NonAf 10.95 POC Glucometer Random Glucose 150 H Hemoglobin A1c % 10.0 H Serum Osmolality Calcium 8.4 L Magnesium 2.1 Total Bilirubin 0.5 AST 20 ALT 24 Alkaline Phosphatase 74 D Creatine Kinase Creatine Kinase Index CK-MB (CK-2) Troponin I Total Protein 6.4 Albumin 3.8 TSH Urine Color Urine Appearance Urine pH Urine Protein Urine Glucose (UA) Urine Ketones Urine Blood Urine Nitrite Urine Bilirubin Urine Urobilinogen Ur Leukocyte Esterase Urine RBC Urine WBC Ur Transition Epith Cell Urine Bacteria Urine Osmolality Ur Random Creatinine U Random Total Protein Ur Random Sodium COVID-19 (MARK) 11/28/19 11/28/19 11/29/19 15:56 22:00 07:22 WBC RBC Hgb Hct MCV MCH MCHC RDW Plt Count MPV Absolute Neuts (auto) Neutrophils % Lymphocytes % Monocytes % Eosinophils % Basophils % Sodium 133 L 138 Potassium 3.5 3.2 L Chloride 89 L 91 L Carbon Dioxide 28 26 Anion Gap 16 21 H BUN 101.0 H 97.0 H Creatinine 4.4 H 4.0 H Est GFR (CKD-EPI)AfAm 13.39 15.03 Est GFR (CKD-EPI)NonAf 11.55 12.97 POC Glucometer Random Glucose 403 H* 326 H Hemoglobin A1c % Serum Osmolality Calcium 8.5 8.6 Magnesium Total Bilirubin AST ALT Alkaline Phosphatase Creatine Kinase Creatine Kinase Index CK-MB (CK-2) Troponin I Total Protein Albumin TSH 4.58 H D Urine Color Urine Appearance Urine pH Urine Protein Urine Glucose (UA) Urine Ketones Urine Blood Urine Nitrite Urine Bilirubin Urine Urobilinogen Ur Leukocyte Esterase Urine RBC Urine WBC Ur Transition Epith Cell Urine Bacteria Urine Osmolality Ur Random Creatinine U Random Total Protein Ur Random Sodium COVID-19 (MARK) 11/29/19 11/29/19 11/29/19 07:22 07:22 21:32 WBC 7.7 RBC 4.14 Hgb 11.7 Hct 35.9 MCV 86.7 MCH 28.3 MCHC 32.7 RDW 14.0 Plt Count 200 MPV 8.3 Absolute Neuts (auto) 5.6 Neutrophils % 72.5 D Lymphocytes % 14.3 D Monocytes % 6.0 Eosinophils % 6.8 H Basophils % 0.4 Sodium 137 Potassium 2.9 L* Chloride 94 L Carbon Dioxide 30 Anion Gap 13 BUN 94.0 H Creatinine 3.9 H Est GFR (CKD-EPI)AfAm 15.49 Est GFR (CKD-EPI)NonAf 13.37 POC Glucometer 332 Random Glucose 227 H Hemoglobin A1c % Serum Osmolality Calcium 8.7 Magnesium Total Bilirubin 0.6 AST 23 ALT 25 Alkaline Phosphatase 66 Creatine Kinase 658 H Creatine Kinase Index 1.6 CK-MB (CK-2) 11.1 H Troponin I Total Protein 6.3 L Albumin 3.6 TSH Urine Color Urine Appearance Urine pH Urine Protein Urine Glucose (UA) Urine Ketones Urine Blood Urine Nitrite Urine Bilirubin Urine Urobilinogen Ur Leukocyte Esterase Urine RBC Urine WBC Ur Transition Epith Cell Urine Bacteria Urine Osmolality Ur Random Creatinine U Random Total Protein Ur Random Sodium COVID-19 (MARK) 11/30/19 11/30/19 11/30/19 07:00 07:00 11:41 WBC 6.0 RBC 4.12 Hgb 11.7 Hct 36.1 MCV 87.7 MCH 28.3 MCHC 32.3 RDW 14.3 Plt Count 186 MPV 9.2 D Absolute Neuts (auto) 3.9 Neutrophils % 64.1 Lymphocytes % 18.3 D Monocytes % 7.3 Eosinophils % 9.8 H Basophils % 0.5 Sodium 140 Potassium 3.8 Chloride 103 Carbon Dioxide 29 Anion Gap 8 BUN 79.0 H Creatinine 3.4 H Est GFR (CKD-EPI)AfAm 18.29 Est GFR (CKD-EPI)NonAf 15.78 POC Glucometer 346 Random Glucose 270 H Hemoglobin A1c % Serum Osmolality Calcium 8.6 Magnesium 2.1 Total Bilirubin 0.7 AST 19 ALT 24 Alkaline Phosphatase 64 Creatine Kinase 444 H Creatine Kinase Index 1.9 CK-MB (CK-2) 8.8 H Troponin I Total Protein 6.1 L Albumin 3.5 TSH Urine Color Urine Appearance Urine pH Urine Protein Urine Glucose (UA) Urine Ketones Urine Blood Urine Nitrite Urine Bilirubin Urine Urobilinogen Ur Leukocyte Esterase Urine RBC Urine WBC Ur Transition Epith Cell Urine Bacteria Urine Osmolality Ur Random Creatinine U Random Total Protein Ur Random Sodium COVID-19 (MARK) Home Medications Medication Instructions Recorded Levothyroxine [Synthroid -] 50 mcg PO DAILY 02/07/16 Terazosin HCl 2 mg PO BID 02/07/16 Aspirin [ASA -] 81 mg PO DAILY 05/26/16 Icosapent Ethyl [Vascepa] 1 gm PO DAILY 05/01/19 Labetalol HCl [Normodyne -] 200 mg PO DAILY 05/01/19 Nifedipine ER [Procardia XL -] 30 mg PO DAILY 05/01/19 Atorvastatin Ca [Lipitor] 20 mg PO HS tablet 05/02/19 Pregabalin [Lyrica -] 75 mg PO BID 11/27/19 Insulin Detemir [Levemir Flextouch] 7 unit SQ BID #1 insuln.pen 11/30/19 Insulin Lispro [Humalog Kwikpen 5 - 8 unit SQ TID #1 insuln.pen 11/30/19 U-100] Isosorbide Mononitrate [Imdur -] 60 mg PO DAILY #30 tab.sr.24h 11/30/19 Torsemide [Demadex -] 40 mg PO DAILY #30 tablet 11/30/19 HOSPITAL COURSE: 84 M h/o CKD 4, HTN, HLD, T2DM, HFpEF, DM neuropathy, BPH, presents with weakness, falling, AMS. Patient admitted to [facility] found to have EBER on CKD with CRE around 5. Patient was found to have taken too much Torsemide at home (50mg BID). Diuretics were stopped, and IVF given with marked improvement of CRE to 3.4. Patient was seen by Renal and Cardiology, medications adjusted, and patient cleared by both services for DC home with follow up. Date of Admission:11/27/19 Date of Discharge: 12/01/19 Discharge meds: Home Medications Medication Instructions Recorded Levothyroxine [Synthroid -] 50 mcg PO DAILY 02/07/16 Terazosin HCl 2 mg PO BID 02/07/16 Aspirin [ASA -] 81 mg PO DAILY 05/26/16 Icosapent Ethyl [Vascepa] 1 gm PO DAILY 05/01/19 Labetalol HCl [Normodyne -] 200 mg PO DAILY 05/01/19 Nifedipine ER [Procardia XL -] 30 mg PO DAILY 05/01/19 Atorvastatin Ca [Lipitor] 20 mg PO HS tablet 05/02/19 Pregabalin [Lyrica -] 75 mg PO BID 11/27/19 Insulin Detemir [Levemir Flextouch] 7 unit SQ BID #1 insuln.pen 11/30/19 Insulin Lispro [Humalog Kwikpen 5 - 8 unit SQ TID #1 insuln.pen 11/30/19 U-100] Isosorbide Mononitrate [Imdur -] 60 mg PO DAILY #30 tab.sr.24h 11/30/19 Torsemide [Demadex -] 40 mg PO DAILY #30 tablet 11/30/19 Minutes to complete discharge: 40 Discharge Summary Problems reviewed: Yes Reason For Visit: ACUTE KIDNEY INJURY/UREMIC ENCEPHALOPATHY Condition: Improved - Instructions Diet, Activity, Other Instructions: You were admitted to the hospital for acute kidney injury which is improving. You were advised to adjust your Lasix medication to half the normal dose. Please avoid taking NSAID medications (Aleve/Ibuprofen/Motrin etc.). If you have pain you may take Tylenol only. Please follow with your kidney doctor, Dr. Mayo on Thursday for repeat blood work (card given). If you feel chest pain, shortness of breath, decreased urination, fall, dizziness, abdominal pain, change in taste, trouble breathing please go to ER immediately. Discharge medications: Torsemide 40mg daily Imdur 60mg ER daily Levemir 7units twice a day Humalog 5-8units three times a day with meals DISCONTINUE: METFORMIN/GLIPIZIDE Continue all other home medications. Please be mindful of the dosage changes listed above. Please follow up with Dr. Mayo's office on Thursday12/02/2019 for blood work. Please bring all your medications with you. Referrals: Rg Solitario MD [Primary Care Provider] - Michael Pastrana MD [Staff Physician] - Ana Lilia Mayo MD [Staff Physician] - Disposition: HOME - Home Medications Comprehensive Discharge Medication List: Ambulatory Orders Levothyroxine [Synthroid -] 50 mcg PO DAILY 02/07/16 Terazosin HCl 2 mg PO BID 02/07/16 Aspirin [ASA -] 81 mg PO DAILY 05/26/16 Icosapent Ethyl [Vascepa] 1 gm PO DAILY 05/01/19 Labetalol HCl [Normodyne -] 200 mg PO DAILY 05/01/19 Nifedipine ER [Procardia XL -] 30 mg PO DAILY 05/01/19 Atorvastatin Ca [Lipitor] 20 mg PO HS tablet 05/02/19 Pregabalin [Lyrica -] 75 mg PO BID 11/27/19 Insulin Detemir [Levemir Flextouch] 7 unit SQ BID #1 insuln.pen 11/30/19 Insulin Lispro [Humalog Kwikpen U-100] 5 - 8 unit SQ TID #1 insuln.pen 11/30/19 Isosorbide Mononitrate [Imdur -] 60 mg PO DAILY #30 tab.sr.24h 11/30/19 Torsemide [Demadex -] 40 mg PO DAILY #30 tablet 11/30/19 This patient is new to me today: Yes Date on this admission: 12/01/19 Emergency Visit: Yes ED Registration Date: 11/27/19 Care time: The patient presented to the Emergency Department on the above date and was hospitalized for further evaluation of their emergent condition. Critical Care patient: No - Discharge Referral Referred to [facility] No
== END 2019-11-30 16:45 | disposition home or self-care (01) | DRG 682 ==
LOC: FER 12:29 → SUPCPDRO 12:29 → FM/S 14:17
PROVIDERS: ADMIT Student in an Organized Health Care Education/Training Program
DX: N17.9 Acute kidney failure, unspecified (principal); G93.41 Metabolic encephalopathy; I13.0 Hypertensive heart and chronic kidney disease with heart failure and stage 1 through stage 4 chronic kidney disease, or unspecified chronic kidney disease; I50.32 Chronic diastolic (congestive) heart failure; E87.1 Hypo-osmolality and hyponatremia; M62.82 Rhabdomyolysis; N18.4 Chronic kidney disease, stage 4 (severe); E11.65 Type 2 diabetes mellitus with hyperglycemia; E03.9 Hypothyroidism, unspecified; N40.0 Benign prostatic hyperplasia without lower urinary tract symptoms; E87.6 Hypokalemia; E78.5 Hyperlipidemia, unspecified; E11.22 Type 2 diabetes mellitus with diabetic chronic kidney disease
CPT/HCPCS: 36415; 70450-TC; 71045-TC-FY; 76775-TC; 80048; 80053; 81003; 81015; 82550; 82553; 82565; 82962; 83036; 83735; 83930; 83935; 84156; 84300; 84443; 84484; 85025; 87086; 93005; 97116-GP; 97162-GP; 99285-25; J1644; U0003

== ENCOUNTER 2020-06-02 18:45 | Emergency (ER) | payer BC, OTHER ==
[2020-06-02 18:51] VITALS: BP 00/00; BMI 27.9
== END 2020-06-02 21:42 | disposition expired ==
LOC: JER 18:45
DX: I46.9 Cardiac arrest, cause unspecified (principal)
CPT/HCPCS: 82962; 99291